=== PATIENT | female | born 1965 | race Caucasian/White ===

== ENCOUNTER 2022-05-22 10:25 | Outpatient (REF) | payer OTHER, SELFPAY ==
[2022-05-22 11:38] LABS: MANUAL DIFF FLAG NO
[2022-05-22 12:16] LABS: Basophils Percent Auto 0.3 % (0-2); Eosinophils Absolute Auto 0.3 X10*3/uL (0.0-0.4); Eosinophils Percent Auto 2.8 % (0-4); Hematocrit 37.6 % (37.0-47.0); Hemoglobin 12.5 g/dl (12.0-16.0); Imm Gran Abs Auto 0.03 X10*3/uL (0.00-0.03); Imm Gran Pct Auto 0.3 % (0.0-0.4); Lymphocytes Percent Auto 32.3 % (20-40); Mean Corpuscular HGB Conc 33.2 g/dl (31.0-35.0); Mean Corpuscular Hemoglobin 28.7 pg (27.0-33.0); Mean Corpuscular Volume 86.4 fL (80.0-98.0); Mean Platelet Volume 10.4 fL (9.4-12.3); Monocytes Absolute Auto 0.6 X10*3/uL (0.1-1.2); Monocytes Percent Auto 6.7 % (2-11); Neutrophils Absolute Auto 5.3 x10*3/uL (2.0-8.3); Neutrophils Percent Auto 57.6 % (45-73); Platelet Count 305 X10*3/uL (160-400); Red Blood Count 4.35 X10*6/uL (4.20-5.50); Red Cell Distribution Width 12.9 % (11.0-16.0); White Blood Count 9.3 X10*3/uL (4.8-10.8)
[2022-05-22 12:45] LABS: Alanine Aminotransferase 26 U/L (0-31); Alkaline Phosphatase 51 U/L (39-117); Anion Gap 13 (12-20); Aspartate Amino Transferase 25 U/L (5-31); Bilirubin Direct 0.2 mg/dL (0.0-0.5); Bilirubin Total 0.4 mg/dL (0.0-1.0); Blood Urea Nitrogen 14 mg/dL (9-16); Calcium 9.2 mg/dL (8.4-10.2); Carbon Dioxide 24 mmol/L (22-29); Chloride 106 mmol/L (96-108); Estimated Glomerular Filt Rate > 60; Glucose Random 116 mg/dL (60-115); Sodium 139 mmol/L (135-145)
[2022-05-22 12:59] LABS: Erythrocyte Sedimentation Rate 37 MM/HR (0-20)
[2022-05-25 14:32] LABS: Alpha 1 Anti-trypsin 168 mg/dL (83-199)
[2022-05-25 15:52] LABS: Anti Nuclear Antibody Screen NEGATIVE (NEGATIVE)
[2022-05-26 12:17] LABS: Anti DNA DS Antibody <1 IU/mL
[2022-05-26 15:11] LABS: Cyclic Citrullinated Peptide <16 UNITS
[2022-05-29 15:21] LABS: Angiotensin Converting Enzyme 32 U/L (9-67)
[2022-06-25 15:02] LABS: Asperg fumigatus Precip Abs NEGATIVE (NEGATIVE); Micropoly faeni Abs NEGATIVE (NEGATIVE); Pigeon serum Abs NEGATIVE (NEGATIVE); Saccharo pora viridis Abs NEGATIVE (NEGATIVE); Thermo candidus Abs NEGATIVE (NEGATIVE); Thermoa vulgaris #1 NEGATIVE (NEGATIVE)
== END 2022-05-22 10:26 | disposition home or self-care (01) ==
LOC: HO.LAB 10:25
PROVIDERS: PCP Internal Medicine; Visit Provider Hospitalist
DX: R91.8 Other nonspecific abnormal finding of lung field (principal); J84.9 Interstitial pulmonary disease, unspecified; M06.9 Rheumatoid arthritis, unspecified
CPT/HCPCS: 36415; 80048; 80076; 82103; 82164; 82785; 85025; 85652; 86003; 86038; 86039; 86200; 86225; 86331; 86606; 86609; 94618

== ENCOUNTER 2022-07-03 13:43 | Outpatient (REF) | payer OTHER, SELFPAY ==
--- NOTE | 2022-07-03 15:11 | PFT_ITS ---
INDICATION: Dyspnea. SPIROMETRY: FEV1 to FVC of 81% with an FEV1 of 1.84 L, which is 61% predicted, an FVC of 2.27 L. which is 61% predicted. No significant response to bronchodilators noted. To note, the [id number] decreased down to 48% predicted. The maximum voluntary ventilation is 62% predicted. LUNG VOLUMES: Total lung capacity 63% predicted with an expiratory reserve volume of 40% predicted. DIFFUSION CAPACITY: DLCO 62% predicted to now it does correct to 100% when corrected for the alveolar volume. COMPARISONS: None. INTERPRETATION: No obstructive ventilatory defect. No significant response to bronchodilators noted although there is evidence of small airway disease, which could be suspicious for asthma and/or body habitus, elevated BMI. There is some mild decrease in maximum voluntary ventilation secondary to likely deconditioning. In addition to that, there is a moderate restrictive ventilatory defect. Need to consider underlying restrictive lung disease related to her body habitus with an elevated BMI, although interstitial lung conditions or neuromuscular conditions cannot be ruled out. The patient does have a mild diffusion impairment that does correct to normal when correcting for the alveolar volume. Darshan Mobley MD MR/MODL / [id number]
== END 2022-07-03 13:44 | disposition home or self-care (01) ==
LOC: HO.RESP 13:43
PROVIDERS: Visit Provider Hospitalist
DX: J84.9 Interstitial pulmonary disease, unspecified (principal)
CPT/HCPCS: 94060; 94727; 94729

== ENCOUNTER 2023-01-19 10:09 | Outpatient (REF) | payer OTHER, SELFPAY ==
--- NOTE | ~2023-01-19 | CT_ITS ---
EXAMINATION: CT CHEST WITHOUT CONTRAST CLINICAL INFORMATION: J84.9 - Interstitial pulmonary disease, unspecified. Shortness of breath. History rheumatoid arthritis. VATS wedge biopsies right middle lobe right lower lobe 2019 at [facility] consistent with cellular nonspecific interstitial pneumonitis (NSIP). COMPARISON: None available. TECHNIQUE: Multidetector volumetric CT imaging of the chest is performed without intravenous contrast. Axial MIP volume rendering provided. Sagittal and coronal reformatted images were obtained. Additional high-resolution images obtained through the upper mid and lower zones. This CT examination was performed using dose optimization techniques as appropriate, variously including the following: *Automated exposure control *Adjustment of mA and/or kV according to patient size (this includes techniques or standardized protocols for targeted exams where dose is matched to indication/reason for exam; i.e. extremities or head) *Use of iterative reconstruction technique DLP: 261 mGy-cm FINDINGS: LUNGS: There is bilateral peripheral and subpleural fibrotic changes with accentuated subpleural lines, thickening interlobular interstitial markings, and intralobular reticulation predominantly at the lower zone. There is scattered involvement in the mid zones with relative sparing of the upper zones. No definite honeycombing. There is no lobar or segmental airspace consolidation or definite groundglass opacities. The central airways are clear. There is no bronchiectasis. No air trapping on high resolution expiratory images. No pneumothorax. No mass or nodule. There are some linear high attenuation posterior lateral lower zone consistent with the prior biopsy. MEDIASTINUM: Heart size normal. No pericardial effusion. Thoracic aorta normal in caliber. No adenopathy. CORONARY ARTERY CALCIFICATION: None visualized on this study. PLEURA: There is no pleural effusion. No pleural mass or thickening. AXILLA: No lymphadenopathy. UPPER ABDOMEN: Prior cholecystectomy. Adrenal glands normal. OSSEOUS STRUCTURES: Unremarkable. CT/CT chest wo IV con IMPRESSION: -Bilateral peripheral and subpleural fibrotic changes with relative sparing of the upper zones. No honeycombing. No bronchiectasis. -No lobar or segmental airspace consolidation or groundglass opacities. -No adenopathy or effusion.
== END 2023-01-19 10:10 | disposition home or self-care (01) ==
LOC: HO.CT 10:09
PROVIDERS: PCP Internal Medicine; Visit Provider Hospitalist
DX: J84.9 Interstitial pulmonary disease, unspecified (principal)
CPT/HCPCS: 71250

== ENCOUNTER → 2023-02-04 15:39 | Outpatient (BNVA) | payer OTHER, SELFPAY | PROVIDERS: PCP Internal Medicine; Visit Provider Hospitalist | DX: J84.9 Interstitial pulmonary disease, unspecified (principal) ==

== ENCOUNTER 2023-05-19 09:43 | Outpatient (AMB) | payer OTHER, SELFPAY ==
[2023-05-19 09:47] VITALS: BP 124/72; PULSE 94; RESP 17; TEMP 36.2; O2SAT 97; BMI 43.9
--- NOTE | 2023-05-19 09:47 | MHC.OFFVIS ---
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 Accompanied by: Self / Same As Patient Allergies clindamycin Adverse Reaction (Severe, Verified 05/19/23 09:50) Hives Iodinated Contrast Media Adverse Reaction (Severe, Verified 05/19/23 09:50) Vomiting Penicillins Adverse Reaction (Severe, Verified 05/19/23 09:50) Diarrhea Medication List - Last Reconciled 05/19/23 by Roxane Boogie RN acetaminophen ER 650 mg PO Q8H albuterol sulfate 90 mcg/actuation 2 puffs inhalation Q6H PRN [id number]-[id number] 250-250-65 mg (Excedrin Extra Strength) 1 tab PO Q4-6H PRN hydroxychloroquine (Plaquenil) 200 mg PO DAILY 30 days meclizine 12.5 mg PO TID PRN naproxen sodium (Flanax (naproxen)) 220 mg PO Q8H PRN HPI HPI Comments History of Present Illness Details The patient presents for evaluation of her rheumatoid arthritis. She relates the onset of joint symptoms in about 1999. Initial treatment was with hydroxychloroquine and then subsequently Enbrel. This treatment apparently was helpful for about 10 years. Eventually it was stopped although she does not know why. In 2011 there was a trial of methotrexate treatment but that was not helpful so it was discontinued. In 2011 she was not felt to have any synovitis. I had seen her back in 2020, once again without signs of active synovitis. However this year there has been more pain and swelling in hands, wrists, neck, knees, and feet. She takes acetaminophen without much improvement. She was started on 200 mg daily hydroxychloroquine about 2 months ago by the pulmonary doctor. She is seen there for interstitial lung disease but currently takes only inhalers for that. A lung biopsy has shown nonspecific interstitial pneumonitis back in 2019. She is known to be CCP and rheumatoid factor negative. [facility] Medical History (Updated 05/19/23 @ 13:05 by Donte Luz MD) Chronic restrictive lung disease ILD (interstitial lung disease) Rheumatoid arthritis Surgical History (Updated 05/19/23 @ 09:53 by Roxane Boogie RN) History of bilateral oophorectomies History of cataract surgery History of cholecystectomy History of lung biopsy Family History (Updated 05/19/23 @ 09:56 by Roxane Boogie RN) Mother Rheumatoid arthritis Sister Osteoarthritis Hypertension Brother Osteoarthritis Skin cancer Father Type 2 diabetes mellitus Osteoarthritis Hypertension Social History (Updated 05/19/23 @ 09:56 by Roxane Boogie RN) Alcohol intake: current Patient Tobacco Use Status: Never used Tobacco Review of Systems Const Details: Some fatigue with exercise. Weight gain in the past 2 years. Negative for appetite change, fever, chills, malaise Eyes Details: Negative for vision change, dry eyes,headaches and dizziness ENT Details: Negative for hearing change, tinnitus, oral ulcer, nose bleeds and oral dryness. Card Details: Negative chest pain, edema and syncope Resp Details: Negative for SOB, cough and wheezing GI Details: Negative indigestion/heartburn, nausea, abdominal pain, bowel changes, diarrhea, constipation and bloody stool. Endo Details: Negative for polyuria and polydypsia Boris/Lymph Details: Negative for excessive bruising or bleeding. Physical Exam Vital Signs: Last Vital Signs Temp 97.2 F 05/19/23 09:47 Pulse 94 05/19/23 09:47 Resp 17 05/19/23 09:47 BP 124/72 05/19/23 09:47 Pulse Ox 97 05/19/23 09:47 Oxygen Delivery Method Room Air 05/19/23 09:47 BMI result Body Mass Index 43.9 APPEARANCE: Patient in no acute distress EYES no redness, pupils equal and reactive to light, eyelids normal EARS: External ear normal, canal clear and tympanic membrane normal. NOSE/SINUS: Airflow through both nares, no nasal discharge, no bleeding THROAT: Oral mucosa moist, no ulcerations NECK: No thyromegaly or masses, no adenopathy, trachea midline. HEART: Regulrar rhythm, S1-S2 heard, no murmurs, rubs or gallops. LUNG: Clear to percussion and auscultation ABD: Normal bowel sounds, no organomegaly, masses or tenderness. EXTREMITIES: Trace ankle edema. The the no calf tenderness, normal peripheral pulses. NEURO: Oriented and alert x3. No focal weakness. Reflexes symmetric. Gait normal. SKIN: No inflammatory or neoplastic lesions. Normal color and turgor JOINT EXAM:.?? Cervical Spine:.? Full range of motion mild pain at the extremes of motion. No tenderness. Thoracic Spine:.? No scoliosis.? No tenderness on palpation. Lumbar Spine:.? Alignment normal.? Full range of motion without pain, no tenderness. Chest Wall:.? No tenderness, swelling, increased warmth or erythema. Hands: Right: Slight swelling and tenderness at the 2nd MCP. There is some slight tenderness at the thumb IP without swelling. No thenar atrophy or sensory loss. Left: Mild tenderness without swelling at the 1st MCP. The other joints have pain-free range of motion without tenderness or swelling. Wrists:? Normal pain-free range of motion without tenderness, swelling, increased warmth or erythema. Elbows:. Normal pain-free range of motion without tenderness, swelling, increased warmth or erythema. Shoulders:.?? Full range of motion without pain. No tenderness, weakness, swelling, increased warmth or erythema. Hips:? Full range of motion with mild lumbar pain with extremes of normal internal or external rotation. No groin pain with motion. out pain. Hip bursa:.? Slight trochanteric tenderness. Knees:?? Normal pain-free range of motion with mild patellofemoral crepitus. There is slight medial compartment tenderness but no effusion, soft tissue swelling, redness or warmth. Ankles:? Left: AP motion seems to be pain-free but there is mild pain with inversion or eversion. There is mild medial and lateral tenderness without redness or soft tissue swelling. Right: Normal pain-free range of motion without tenderness, swelling, increased warmth or erythema. Feet:.? Normal pain-free range of motion without tenderness, swelling, increased warmth or erythema. Tender points:? mild tenderness to digital palpation at the lateral epicondyle, knees, greater trochanter area bilaterally. ? Results Reviewed Results Reviewed: Laboratory Tests 05/22/22 05/22/22 05/22/22 11:35 11:35 11:35 WBC 9.3 Hgb 12.5 ESR 37 H Creatinine 0.89 Cycl Citrul Peptide IgG DIYA Screen 05/22/22 05/22/22 11:35 11:35 WBC Hgb ESR Creatinine Cycl Citrul Peptide IgG <16 DIYA Screen NEGATIVE Lab work from [facility]: 2017: Sjogren's antibody negative, anti SM antibody negative, anti SYSTEM ARCHIVE ANALYST antibody negative, DIYA negative, anti DNA negative, scleroderma antibody negative, rheumatoid factor negative, Mar, 2021: CRP slightly elevated at 0.89 mg/dL Assessment & Plan Assessment & Plan (1) ILD (interstitial lung disease): Comment: cellular NSIP/RA related ILD Code(s): J84.9 - Interstitial pulmonary disease, unspecified (2) Chronic restrictive lung disease: Code(s): J98.4 - Other disorders of lung (3) Rheumatoid arthritis: Comment: treatment 1999- 2009 with Enbrel and Plaquenil methotrexate started ~ 2011 but patient stopped it - flare RF, CCP negative No DMARD since 2011 - burned out ? Code(s): M06.9 - Rheumatoid arthritis, unspecified Plan Patient has documented interstitial lung disease which seems to be stable. There is a history of being treated with methotrexate, hydroxychloroquine, and Enbrel in the past for rheumatoid arthritis. In recent years there has not been much synovitis to treat. Presently I think there is some tenderness and swelling in a few of the small joints in the hands. This is after she has been on the hydroxychloroquine now at 200 mg daily for a month. There still could be some improvement at this dose but I will push the dose higher up to 200 mg b.i.d. which would be a more therapeutic level for a woman her size. I will recheck some inflammatory markers, Chem panel and CBC. We will see her back in about 3 months.Review of her records, today's exam and discussing treatment options took 34 minutes. Orders: Orders Comprehensive Met. Panel Today M06.9 - Rheumatoid arthritis, unspecified C Reactive Protein Today M06.9 - Rheumatoid arthritis, unspecified Protein Creatinine Ratio, Ur Today M06.9 - Rheumatoid arthritis, unspecified, M25.471 - Effusion, right ankle, M25.472 - Effusion, left ankle Complete Blood Count Auto Diff Today M06.9 - Rheumatoid arthritis, unspecified Erythrocyte Sedimentation Rate Today M06.9 - Rheumatoid arthritis, unspecified Rheumatoid Factor Today M06.9 - Rheumatoid arthritis, unspecified XR hand LT min 3V Today M06.9 - Rheumatoid arthritis, unspecified XR hand RT min 3V Today M06.9 - Rheumatoid arthritis, unspecified Medications: Changed From hydroxychloroquine (Plaquenil) 200 mg PO DAILY 30 days 30 tabs 6RF To hydroxychloroquine (Plaquenil) 200 mg PO BID 60 tabs 2RF 30 days Coding Level of Care Code Est Pt Level 4 (73372) Diagnoses ILD (interstitial lung disease) J84.9 Chronic restrictive lung disease J98.4 Rheumatoid arthritis M06.9
== END 2023-05-19 10:48 | disposition home or self-care (01) ==
PROVIDERS: PCP Internal Medicine; Visit Provider Internal Medicine Rheumatology
DX: J84.9 Interstitial pulmonary disease, unspecified (principal); J98.4 Other disorders of lung; M06.9 Rheumatoid arthritis, unspecified
CPT/HCPCS: 99214

== ENCOUNTER → 2023-05-19 09:43 | Outpatient (BNVA) | payer OTHER, SELFPAY | PROVIDERS: PCP Internal Medicine; Visit Provider Internal Medicine Rheumatology ==

== ENCOUNTER 2023-05-19 10:52 | Outpatient (REF) | payer OTHER, SELFPAY ==
[2023-05-19 13:23] LABS: MANUAL DIFF FLAG NO
[2023-05-19 13:31] LABS: Basophils Absolute Auto 0.1 X10*3/uL (0.0-0.2); Basophils Percent Auto 0.6 % (0-2); Eosinophils Absolute Auto 0.3 X10*3/uL (0.0-0.4); Hematocrit 39.6 % (37.0-47.0); Hemoglobin 12.7 g/dl (12.0-16.0); Imm Gran Abs Auto 0.03 X10*3/uL (0.00-0.03); Imm Gran Pct Auto 0.4 % (0.0-0.4); Lymphocytes Absolute Auto 2.8 X10*3/uL (1.2-4.9); Lymphocytes Percent Auto 33.9 % (20-40); Mean Corpuscular HGB Conc 32.1 g/dl (31.0-35.0); Mean Corpuscular Hemoglobin 28.3 pg (27.0-33.0); Mean Corpuscular Volume 88.4 fL (80.0-98.0); Mean Platelet Volume 10.5 fL (9.4-12.3); Monocytes Absolute Auto 0.6 X10*3/uL (0.1-1.2); Monocytes Percent Auto 6.7 % (2-11); Neutrophils Absolute Auto 4.6 x10*3/uL (2.0-8.3); Neutrophils Percent Auto 55.4 % (45-73); Platelet Count 303 X10*3/uL (160-400); Red Blood Count 4.48 X10*6/uL (4.20-5.50); Red Cell Distribution Width 13.1 % (11.0-16.0); White Blood Count 8.3 X10*3/uL (4.8-10.8)
[2023-05-19 14:22] LABS: Erythrocyte Sedimentation Rate 23 MM/HR (0-20)
[2023-05-19 14:46] LABS: Rheumatoid Factor < 13.0 IU/mL (<15.0)
[2023-05-19 15:27] LABS: Creatinine Urine 176.42 mg/dL; Protein/Creatinine Ratio, Ur 0.08 (<0.2); Total Protein Urine Random 14 mg/dL (<12)
[2023-05-20 02:15] LABS: Alanine Aminotransferase 24 U/L (0-31); Alkaline Phosphatase 45 U/L (39-117); Anion Gap 13 (12-20); Aspartate Amino Transferase 26 U/L (5-31); Bilirubin Total 0.4 mg/dL (0.0-1.0); Blood Urea Nitrogen 15 mg/dL (9-16); C Reactive Protein 1.09 mg/dL (< or = 0.50); Calcium 9.3 mg/dL (8.4-10.2); Carbon Dioxide 27 mmol/L (22-29); Chloride 105 mmol/L (96-108); Estimated Glomerular Filt Rate > 60; Glucose Random 89 mg/dL (60-115); Potassium 3.8 mmol/L (3.3-5.1); Sodium 141 mmol/L (135-145)
== END 2023-05-19 10:53 | disposition home or self-care (01) ==
LOC: HO.10HDL 10:52
PROVIDERS: Visit Provider Internal Medicine Rheumatology
DX: M06.9 Rheumatoid arthritis, unspecified (principal); M25.471 Effusion, right ankle; M25.472 Effusion, left ankle
CPT/HCPCS: 36415; 80053; 84156; 85025; 85652; 86140; 86431

== ENCOUNTER 2023-08-03 15:01 | Outpatient (REF) | payer OTHER, SELFPAY ==
--- NOTE | 2023-08-03 16:18 | PFT_ITS ---
INDICATION: Dyspnea. SPIROMETRY: FEV1 to FVC 82% with an FEV1 of 1.72 L, which is 58% predicted and FVC of 2.1 L, which is 57% predicted. No significant response to bronchodilators noted. Maximum voluntary ventilation 54% predicted. LUNG VOLUMES: Total lung capacity 61% predicted with an expiratory reserve volume of 20% predicted. DIFFUSION CAPACITY: DLCO of 64% predicted. COMPARISONS: None. INTERPRETATION: No obstructive ventilatory defects. No significant response to bronchodilators noted. Moderate decrease in maximum voluntary ventilation, secondary to likely deconditioning. Neuromuscular conditions cannot be ruled out. On lung volumes, the patient does have restrictive ventilatory defect consistent with moderate restrictive lung disease. In part this could be secondary to her elevated BMI resulting in hypoexpansion of the lungs especially with the decrease in the expiratory volume. However, need to consider underlying parenchymal lung conditions and/or neuromuscular conditions as well. The patient does have mild diffusion impairment that does correct to normal when correcting for the alveolar volume and the hypoexpansion of the lungs. Clinical correlation warranted. MD LATRELL Nelson/MODL / [id number]
== END 2023-08-03 15:02 | disposition home or self-care (01) ==
LOC: HO.RESP 15:01
PROVIDERS: PCP Internal Medicine; Visit Provider Hospitalist
DX: J98.4 Other disorders of lung (principal)
CPT/HCPCS: 94010; 94727; 94729

== ENCOUNTER → 2023-08-03 16:18 | Outpatient (BNV) | payer OTHER, SELFPAY | PROVIDERS: PCP Internal Medicine; Visit Provider Hospitalist | DX: R06.09 Other forms of dyspnea (principal) | CPT/HCPCS: 94060; 94727; 94729 ==

== ENCOUNTER 2023-08-06 13:03 | Outpatient (AMB) | payer OTHER, SELFPAY ==
--- NOTE | 2023-08-06 13:08 | MHC.OFFVIS ---
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 The patient had been having worsening shortness of breath and was evaluated by a fellow butt welder from [place]. in 2018 the patient undergo went a video-assisted thoracoscopy with wedge biopsies of the right middle lobe and also the right lower lobe. At this point we do not have the biopsy results although we did request done for [facility]. She did follow-up with the butt welder at the time and he recommended going on cortical steroid therapy. The patient preferred not to in view of the adverse effects from prednisone. In the meantime she has had multiple medications she has use for rheumatoid arthritis. Right now her symptoms are active with small joint involvement. The patient is currently being arranged to have a referral with a chef de froid. during the visit we did go for 6 minutes walk test. The patient did well and did not need oxygen although heart rate was indeed elevated. Will go ahead and have her undergo pulmonary function studies and also Will request additional blood work. Will review her last CT scan and pathology and at that point will likely need additional imaging studies. 07/27/2022 the patient is here for a pulmonary follow-up visit. Overall she is doing relatively well. Denies any significant shortness of breath when he worsening dyspnea on exertion. Cough seems to be under control. The patient is not using inhalers. I did get the pathology from her wedge biopsy done at [facility]. 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 Explained to her that this is a reassuring finding as this is responsive to medication. Her blood work was all negative. Her CCP was negative for that she does have a history rheumatoid arthritis. It may just be in remission. She still has arthritis symptoms and she does take [id number] NSAIDs. She used to have chef de froid but she is not following 1 regularly at this time. her last CT scan that she had was at [facility] that was back in October 2021 demonstrating the interstitial lung disease. Clinically the patient is doing well so therefore will follow-up with a repeat CT scan in 6 months. If the patient has any worsening symptoms prior to that she is to call so we can evaluated earlier time. We also reviewed her pulmonary function studies again consistent with restrictive lung disease primarily due to her interstitial lung disease but also elevated BMI. she was already plan to start exercising and weight management which is reassuring. 02/04/2023 the patient is here for pulmonary follow-up visit. Overall she is doing well. Denies any significant shortness of breath or any worsening of her dyspnea symptoms. We did review her CT scan of the chest. Unfortunately has not been read as of yet. But I did look at it with her. She does have moderate amount of subpleural reticular changes consistent with scarring and also primarily at the bases. I do not see any evidence of any ground-glass opacities to go along with active cellular NSIP. This is reassuring. At this point we cannot compare 1 CT scan to the other. Her last PFTs were back in July 2022. Will go ahead and request PFTs at next visit in 6 months to see if there is any progression of disease. If there is progression we can consider antifibrotic agents to try to a slow down the progressive aspects of her connective tissue disease related interstitial lung disease. She does have some active arthritis symptoms. Unfortunately she has not followed up with Rheumatology. She needs to have a chef de froid followed closely. Will go ahead and start her on Plaquenil as his work for her in the past. But when she sees her chef de froid she will be able to have that either continued or change. Will make a referral at this time. In the meantime she is using her rescue inhaler as needed. The patient has not required any prednisone which she would like to avoid it if possible. 08/06/2023 the patient is here for a pulmonary follow-up visit. The patient overall has been about the same. She does have a good days and bad days. Currently she is doing well. The patient does have some dyspnea on exertion mild in severity. She does not require oxygen. We did review her pulmonary function studies that she just had an compared to the previous 1 from last year. It appears that she has a total lung capacity of 61% which is basically unchanged from last year. This is reassuring overall. Her diffusing capacity is also reassuring. Therefore based on her PFTs it does not appear to be any significant progression of disease in the last year. Therefore we can hold off on antifibrotic agents at this time. She also had been on the Plaquenil. Although for some reason she stopped it altogether. Explained to her the importance of controlling the connective tissue disease in order to avoid any other extra articular contain manifestations such as the interstitial lung disease. The patient understands and will start taking the medication again. Otherwise will follow-up in the springtime with a repeat CT scan to assess for any progression of the pulmonary fibrosis. [facility] Medical History (Updated 08/09/23 @ 20:07 by Darshan Mobley MD) Chronic restrictive lung disease Rheumatoid arthritis ILD (interstitial lung disease) Surgical History (Updated 05/19/23 @ 09:53 by Roxane Boogie RN) History of cataract surgery History of lung biopsy History of cholecystectomy History of bilateral oophorectomies Family History (Updated 05/19/23 @ 09:56 by Roxane Boogie RN) Mother Rheumatoid arthritis Sister Osteoarthritis Hypertension Brother Osteoarthritis Skin cancer Father Type 2 diabetes mellitus Osteoarthritis Hypertension Social History (Updated 05/19/23 @ 09:56 by Roxane Boogie RN) Alcohol intake: current Patient Tobacco Use Status: Never used Tobacco Review of Systems Const Denies fever(s) Eyes Denies change in vision ENT Denies change in voice Card Denies chest pain and Reports dyspnea on exertion Resp Reports cough, Denies hemoptysis and Reports dyspnea on exertion GI Reports no additional complaints Reports no additional complaints Musc Reports as per HPI, Reports arthralgias and Reports joint swelling Skin/Breast Denies rash Neuro Reports no additional complaints Physical Exam Vital Signs: Last Vital Signs Pulse 89 08/06/23 13:09 Pulse Ox 97 08/06/23 13:09 Oxygen Delivery Method Room Air 08/06/23 13:09 BMI result Body Mass Index 43.8 Const General: comfortable HEENT Head: Yes normal to inspection Eyes General: appearance normal, both eyes and all related structures Neck Neck: Yes normal visual inspection and Yes supple Chest Chest palpation & inspection: normal inspection of the chest Resp Auscultation: crackles bilateral 1/2 way up and diminished lung sounds Cardio Rate: regular rate Rhythm: regular rhythm Heart sounds: S1 normal heart sound present and S2 normal heart sound present GI Inspection: Yes normal to inspection Skin General skin exam: no rashes or lesions noted Extrem General: Yes normal to inspection Assessment & Plan Assessment & Plan (1) ILD (interstitial lung disease): Comment: cellular NSIP/RA related ILD Code(s): J84.9 - Interstitial pulmonary disease, unspecified (2) Rheumatoid arthritis: Comment: treatment 1999- 2009 with Enbrel and Plaquenil methotrexate started ~ 2011 but patient stopped it - flare RF, CCP negative No DMARD since 2011 - burned out ? Code(s): M06.9 - Rheumatoid arthritis, unspecified Qualifiers: Rheumatoid factor presence: with rheumatoid factor Rheumatoid arthritis location: unspecified site Qualified Code(s): M05.9 - Rheumatoid arthritis with rheumatoid factor, unspecified (3) Chronic restrictive lung disease: Code(s): J98.4 - Other disorders of lung Plan ALCON as needed Lasix x 3 days low sodium diet consider OFEV if progressive fibrosis CT chest in 6 months Plaquenil F/U 6 months or sooner if any worsening symptoms Orders: Orders CT chest wo IV con 6 Months J84.9 - Interstitial pulmonary disease, unspecified Medications: New furosemide (Lasix) 20 mg PO DAILY 3 tabs 0RF 3 days Coding Level of Care Code Est Pt Level 4 (67417) Diagnoses ILD (interstitial lung disease) J84.9 Rheumatoid arthritis with positive rheumatoid factor, involving unspecified site M05.9 Rheumatoid factor presence: with rheumatoid factor Rheumatoid arthritis location: unspecified site Chronic restrictive lung disease J98.4 Time Spent (min) 17
[2023-08-06 13:09] VITALS: PULSE 89; O2SAT 97; BMI 43.8
== END 2023-08-06 13:35 | disposition home or self-care (01) ==
PROVIDERS: PCP Internal Medicine; Visit Provider Hospitalist
DX: J84.9 Interstitial pulmonary disease, unspecified (principal); M05.9 Rheumatoid arthritis with rheumatoid factor, unspecified; J98.4 Other disorders of lung
CPT/HCPCS: 99214

== ENCOUNTER → 2023-08-06 13:03 | Outpatient (BNVA) | payer OTHER, SELFPAY | PROVIDERS: PCP Internal Medicine; Visit Provider Hospitalist | DX: J84.9 Interstitial pulmonary disease, unspecified (principal); M06.9 Rheumatoid arthritis, unspecified ==

== ENCOUNTER 2024-01-03 10:22 | Outpatient (REF) | payer OTHER, SELFPAY ==
--- NOTE | ~2024-01-03 | CT_ITS ---
EXAMINATION: CT CHEST WITHOUT CONTRAST CLINICAL INFORMATION: Interstitial lung disease. COMPARISON: CT chest dated 02/26/2023. TECHNIQUE: Multidetector volumetric CT imaging of the chest was done. Axial MIP volume rendering provided. Sagittal and coronal reformatted images were obtained. This CT examination was performed using dose optimization techniques as appropriate, variously including the following: *Automated exposure control *Adjustment of mA and/or kV according to patient size (this includes techniques or standardized protocols for targeted exams where dose is matched to indication/reason for exam; i.e. extremities or head) *Use of iterative reconstruction technique DLP: 394 mGy-cm FINDINGS: HEEL PACKER: The lungs are symmetrically well-expanded and grossly clear. LUNGS: Again, there are scattered foci of pleural and parenchymal fibrotic scarring. There is again chronic interstitial lung disease, with predominantly bibasilar increased subpleural linear reticular and polygonal markings. No definite honeycombing is seen. Overall, this appearance remains stable from 01/19/2023. No nodule, mass, infiltrate or groundglass opacity is seen. There are stable postoperative changes in the right middle and lower lobes consistent with prior VATS wedge biopsies (2019). There is no generalized small airway thickening. There is no significant air trapping. No bronchiectasis is seen. The central airways appear patent. MEDIASTINUM: The mediastinum is normal. CORONARY ARTERY CALCIFICATION: None visualized on this study. PLEURA: There is no pleural effusion. There is stable right lower lobe postoperative pleural thickening. No new pleural mass or thickening. AXILLA: No lymphadenopathy. UPPER ABDOMEN: Unremarkable. The gallbladder is surgically absent. OSSEOUS STRUCTURES: There is multi-level lower cervical and thoracic spondylosis. No acute or aggressive osseous finding is noted. CT/CT chest wo IV con IMPRESSION: 1. There are stable findings of chronic interstitial lung disease, without honeycombing. The possibility of nonspecific interstitial pneumonia (NSIP) is raised. 2. There are stable postoperative changes within the right middle and lower lobes. 3. No new nodule, mass, infiltrate or groundglass opacity is seen. 4. There is no thoracic lymphadenopathy or pleural effusion. 5. There are degenerative changes of the spine. Fleischner guidelines were followed.
== END 2024-01-03 10:23 | disposition home or self-care (01) ==
LOC: HO.CT 10:22
PROVIDERS: PCP Internal Medicine; Visit Provider Hospitalist
DX: J84.9 Interstitial pulmonary disease, unspecified (principal)
CPT/HCPCS: 71250

== ENCOUNTER 2024-04-13 08:54 | Outpatient (REF) | payer OTHER, SELFPAY ==
[2024-04-13 12:04] LABS: Erythrocyte Sedimentation Rate 23 MM/HR (0-20)
[2024-04-17 11:13] LABS: Cyclic Citrullinated Peptide <16 UNITS
[2024-04-17 14:44] LABS: Anti Nuclear Antibody Screen NEGATIVE (NEGATIVE)
[2024-04-17 23:19] LABS: Anti DNA DS Antibody <1 IU/mL; JO 1 Antibody <1.0 NEG AI (<1.0 NEG); Scleroderma 70 Antibody <1.0 NEG AI (<1.0 NEG)
== END 2024-04-13 08:55 | disposition home or self-care (01) ==
LOC: HO.LAB 08:54
PROVIDERS: PCP Internal Medicine; Visit Provider Hospitalist
DX: J84.9 Interstitial pulmonary disease, unspecified (principal)
CPT/HCPCS: 36415; 85652; 86038; 86200; 86225; 86235

== ENCOUNTER 2024-04-13 08:54 | Outpatient (AMB) | payer OTHER, SELFPAY ==
[2024-04-13 08:57] VITALS: PULSE 86; O2SAT 96; BMI 41.5
--- NOTE | 2024-04-13 08:57 | MHC.OFFVIS ---
Vital Signs 04/13/24 08:57 Height 5 ft 7 in Weight 265 lb BMI 41.5 Pulse 86 Pulse Source Pulse Oximeter Pulse Oximetry (%) 96 Oxygen Delivery Method Room Air Intake Visit Reasons: ILD Refractive Surgeon Required: No Allergies clindamycin Adverse Reaction (Severe, Verified 04/13/24 08:58) Hives Iodinated Contrast Media Adverse Reaction (Severe, Verified 04/13/24 08:58) Vomiting Penicillins Adverse Reaction (Severe, Verified 04/13/24 08:58) Diarrhea HPI Comments Details: The patient is a 58-year-old woman with a known history of rheumatoid arthritis and interstitial lung disease. The patient had been having worsening shortness of breath and was evaluated by a fellow procedures rn from [place]. in 2018 the patient undergo went a video-assisted thoracoscopy with wedge biopsies of the right middle lobe and also the right lower lobe. At this point we do not have the biopsy results although we did request done for [facility]. She did follow-up with the procedures rn at the time and he recommended going on cortical steroid therapy. The patient preferred not to in view of the adverse effects from prednisone. In the meantime she has had multiple medications she has use for rheumatoid arthritis. Right now her symptoms are active with small joint involvement. The patient is currently being arranged to have a referral with a orthotic technician. during the visit we did go for 6 minutes walk test. The patient did well and did not need oxygen although heart rate was indeed elevated. Will go ahead and have her undergo pulmonary function studies and also Will request additional blood work. Will review her last CT scan and pathology and at that point will likely need additional imaging studies. 07/27/2022 the patient is here for a pulmonary follow-up visit. Overall she is doing relatively well. Denies any significant shortness of breath when he worsening dyspnea on exertion. Cough seems to be under control. The patient is not using inhalers. I did get the pathology from her wedge biopsy done at [facility]. 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 Explained to her that this is a reassuring finding as this is responsive to medication. Her blood work was all negative. Her CCP was negative for that she does have a history rheumatoid arthritis. It may just be in remission. She still has arthritis symptoms and she does take [id number] NSAIDs. She used to have orthotic technician but she is not following 1 regularly at this time. her last CT scan that she had was at [facility] that was back in October 2021 demonstrating the interstitial lung disease. Clinically the patient is doing well so therefore will follow-up with a repeat CT scan in 6 months. If the patient has any worsening symptoms prior to that she is to call so we can evaluated earlier time. We also reviewed her pulmonary function studies again consistent with restrictive lung disease primarily due to her interstitial lung disease but also elevated BMI. she was already plan to start exercising and weight management which is reassuring. 02/04/2023 the patient is here for pulmonary follow-up visit. Overall she is doing well. Denies any significant shortness of breath or any worsening of her dyspnea symptoms. We did review her CT scan of the chest. Unfortunately has not been read as of yet. But I did look at it with her. She does have moderate amount of subpleural reticular changes consistent with scarring and also primarily at the bases. I do not see any evidence of any ground-glass opacities to go along with active cellular NSIP. This is reassuring. At this point we cannot compare 1 CT scan to the other. Her last PFTs were back in July 2022. Will go ahead and request PFTs at next visit in 6 months to see if there is any progression of disease. If there is progression we can consider antifibrotic agents to try to a slow down the progressive aspects of her connective tissue disease related interstitial lung disease. She does have some active arthritis symptoms. Unfortunately she has not followed up with Rheumatology. She needs to have a orthotic technician followed closely. Will go ahead and start her on Plaquenil as his work for her in the past. But when she sees her orthotic technician she will be able to have that either continued or change. Will make a referral at this time. In the meantime she is using her rescue inhaler as needed. The patient has not required any prednisone which she would like to avoid it if possible. 08/06/2023 the patient is here for a pulmonary follow-up visit. The patient overall has been about the same. She does have a good days and bad days. Currently she is doing well. The patient does have some dyspnea on exertion mild in severity. She does not require oxygen. We did review her pulmonary function studies that she just had an compared to the previous 1 from last year. It appears that she has a total lung capacity of 61% which is basically unchanged from last year. This is reassuring overall. Her diffusing capacity is also reassuring. Therefore based on her PFTs it does not appear to be any significant progression of disease in the last year. Therefore we can hold off on antifibrotic agents at this time. She also had been on the Plaquenil. Although for some reason she stopped it altogether. Explained to her the importance of controlling the connective tissue disease in order to avoid any other extra articular contain manifestations such as the interstitial lung disease. The patient understands and will start taking the medication again. Otherwise will follow-up in the springtime with a repeat CT scan to assess for any progression of the pulmonary fibrosis. 04/13/2024 the patient is here for a pulmonary follow-up visit. Overall she is doing okay. The last few weeks she has had to use her rescue inhaler more often. Possibly related to the change season and also the humidity. Otherwise she has been doing well denies any significant shortness of breath. She does have mild dyspnea on exertion. She also had lower extremity edema. She did not take the Lasix the last time. She needs to be careful with sodium intake. We did review her CT scan of the chest that she had in 01/19/2024 and we did review it and compared to the CT scan from 2022. No significant changes in the interstitial lung disease suggesting stable chronic interstitial fibrosis from her underlying connective tissue disease. It appears to be stable at this time. She will be following up closely with rheumatology. The patient also is describing daytime drowsiness. Her Collins score is elevated 11/24. She has woken up short of breath. She does have significant snoring. She does have cardiovascular risk factors and significant lower extremity edema. Will go ahead and request a sleep study at this time her follow-up afterwards. The patient will also undergo blood work just to monitor closely her interstitial lung disease. [facility] Medical History (Updated 04/13/24 @ 09:23 by Darshan Mobley MD) Chronic restrictive lung disease Rheumatoid arthritis ILD (interstitial lung disease) Surgical History (Updated 05/19/23 @ 09:53 by Roxane Boogie RN) History of cataract surgery History of lung biopsy History of cholecystectomy History of bilateral oophorectomies Family History (Updated 05/19/23 @ 09:56 by Roxane Keagan, RN) Mother Rheumatoid arthritis Sister Osteoarthritis Hypertension Brother Osteoarthritis Skin cancer Father Type 2 diabetes mellitus Osteoarthritis Hypertension Social History (Updated 05/19/23 @ 09:56 by Roxane Boogie RN) Alcohol intake: current Patient Tobacco Use Status: Never used Tobacco Review of Systems Const Denies fever(s) Eyes Denies change in vision ENT Denies change in voice Card Denies chest pain and Reports dyspnea on exertion Resp Reports cough, Denies hemoptysis and Reports dyspnea on exertion GI Reports no additional complaints Reports no additional complaints Musc Reports as per HPI, Reports arthralgias and Reports joint swelling Skin/Breast Denies rash Neuro Reports no additional complaints Physical Exam Vital Signs: Last Vital Signs Pulse 86 04/13/24 08:57 Pulse Ox 96 04/13/24 08:57 Oxygen Delivery Method Room Air 04/13/24 08:57 BMI result Body Mass Index 41.5 Const General: comfortable HEENT Head: Yes normal to inspection Eyes General: appearance normal, both eyes and all related structures Neck Neck: Yes normal visual inspection and Yes supple Chest Chest palpation & inspection: normal inspection of the chest Resp Auscultation: crackles bilateral 1/[address] way up and diminished lung sounds Cardio Rate: regular rate Rhythm: regular rhythm Heart sounds: S1 normal heart sound present and S2 normal heart sound present GI Inspection: Yes normal to inspection Skin General skin exam: no rashes or lesions noted Extrem General: Yes normal to inspection Assessment & Plan Assessment & Plan (1) ILD (interstitial lung disease): Comment: cellular NSIP/RA related ILD Code(s): J84.9 - Interstitial pulmonary disease, unspecified Category: Medical (2) Rheumatoid arthritis: Comment: treatment 1999- 2009 with Enbrel and Plaquenil methotrexate started ~ 2011 but patient stopped it - flare RF, CCP negative No DMARD since 2011 - burned out ? Code(s): M06.9 - Rheumatoid arthritis, unspecified Category: Medical Qualifiers: Rheumatoid arthritis location: unspecified site Rheumatoid factor presence: with rheumatoid factor Qualified Code(s): M05.9 - Rheumatoid arthritis with rheumatoid factor, unspecified (3) Chronic restrictive lung disease: Code(s): J98.4 - Other disorders of lung Category: Medical (4) JENNIFER (obstructive sleep apnea): Code(s): G47.33 - Obstructive sleep apnea (adult) (pediatric) Category: Medical Plan ALCON as needed Lasix x 3 days low sodium diet consider OFEV if progressive fibrosis, fibrosis stable Plaquenil Bloodwork F/U 6 months or sooner if any worsening symptoms Orders: Orders Anti DNA DS Antibody Today J84.9 - Interstitial pulmonary disease, unspecified Scleroderma 70 Antibody Today J84.9 - Interstitial pulmonary disease, unspecified RACHEL 1 Antibody Today J84.9 - Interstitial pulmonary disease, unspecified RT home sleep study Today G47.33 - Obstructive sleep apnea (adult) (pediatric) Cyclic Citrullinated Peptide Today J84.9 - Interstitial pulmonary disease, unspecified Erythrocyte Sedimentation Rate Today J84.9 - Interstitial pulmonary disease, unspecified DIYA Reflex Titer and Pattern Today J84.9 - Interstitial pulmonary disease, unspecified Medications: New furosemide (Lasix) 20 mg PO DAILY 3 tabs 0RF albuterol sulfate 2.5 mg (3 mL) inhalation Q6H PRN 90 mL 11RF shortness of breath or wheezing 30 days Refilled albuterol sulfate 90 mcg/actuation 2 puffs inhalation Q6H PRN 8.5 grams 11RF shortness of breath or wheezing Coding Level of Care Code Est Pt Level 4 (20549) Diagnoses ILD (interstitial lung disease) J84.9 Rheumatoid arthritis with positive rheumatoid factor, involving unspecified site M05.9 Rheumatoid arthritis location: unspecified site Rheumatoid factor presence: with rheumatoid factor Chronic restrictive lung disease J98.4 JENNIFER (obstructive sleep apnea) G47.33 Time Spent (min) 17
== END 2024-04-13 09:25 | disposition home or self-care (01) ==
PROVIDERS: PCP Internal Medicine; Visit Provider Hospitalist
DX: J84.9 Interstitial pulmonary disease, unspecified (principal); M05.9 Rheumatoid arthritis with rheumatoid factor, unspecified; J98.4 Other disorders of lung; G47.33 Obstructive sleep apnea (adult) (pediatric)
CPT/HCPCS: 99214

== ENCOUNTER 2024-05-11 13:46 | Outpatient (AMB) | payer OTHER, SELFPAY ==
--- NOTE | 2024-05-11 13:52 | MHC.OFFVIS ---
Vital Signs 05/11/24 13:56 Height 5 ft 7 in Weight 276 lb 3.827 oz BMI 43.3 BP 120/72 Blood Pressure Location Rt brachial Position Sitting Pulse 89 Pulse Source Pulse Oximeter Temp 98 F Pulse Oximetry (%) 96 Oxygen Delivery Method Room Air Intake Visit Reasons: RA/CM Intake Note: Patient presents RA. Feeling lots of pain all over body but mostly in hands/knees. Allergies clindamycin Adverse Reaction (Severe, Verified 05/11/24 13:55) Hives Iodinated Contrast Media Adverse Reaction (Severe, Verified 05/11/24 13:55) Vomiting Penicillins Adverse Reaction (Severe, Verified 05/11/24 13:55) Diarrhea Medication List - Last Reconciled 05/11/24 by Noah Thomas MD acetaminophen ER 650 mg PO Q8H albuterol sulfate 90 mcg/actuation 2 puffs inhalation Q6H PRN albuterol sulfate 2.5 mg (3 mL) inhalation Q6H PRN 30 days fddxvsu-xwcjtcmddftby-rltjsrgy 250-250-65 mg (Excedrin Extra Strength) 1 tab PO Q4-6H PRN meclizine 12.5 mg PO TID PRN naproxen sodium (Flanax (naproxen)) 220 mg PO Q8H PRN nebulizers As directed HPI Comments Details: This is a 58-year-old female with seronegative RA with CTD related ILD who presents for follow-up. When patient was seen by Dr. Luz last year, hydroxychloroquine was increased to 2 tablets a day. Patient took it for a month or 2. She did not notice any improvement so she stopped taking it. She states that more recently she has been having much swelling and pain in her hands, knuckles, wrists, ankles associated with morning stiffness lasting 1 or 2 hours. Her ILD has remained relatively stable. She denies any cough or shortness of breath. Denies any recent infections. Denies any skin rashes. Most recent history by Dr. Luz 05/2023: The patient presents for evaluation of her rheumatoid arthritis. She relates the onset of joint symptoms in about 1999. Initial treatment was with hydroxychloroquine and then subsequently Enbrel. This treatment apparently was helpful for about 10 years. Eventually it was stopped although she does not know why. In 2011 there was a trial of methotrexate treatment but that was not helpful so it was discontinued. In 2011 she was not felt to have any synovitis. I had seen her back in 2020, once again without signs of active synovitis. However this year there has been more pain and swelling in hands, wrists, neck, knees, and feet. She takes acetaminophen without much improvement. She was started on 200 mg daily hydroxychloroquine about 2 months ago by the pulmonary doctor. She is seen there for interstitial lung disease but currently takes only inhalers for that. A lung biopsy has shown nonspecific interstitial pneumonitis back in 2019. She is known to be CCP and rheumatoid factor negative. [facility] Medical History Chronic restrictive lung disease Rheumatoid arthritis ILD (interstitial lung disease) Surgical History History of cataract surgery History of lung biopsy History of cholecystectomy History of bilateral oophorectomies Family History Mother Rheumatoid arthritis Sister Osteoarthritis Hypertension Brother Osteoarthritis Skin cancer Father Type 2 diabetes mellitus Osteoarthritis Hypertension Social History Alcohol intake: current Patient Tobacco Use Status: Never used Tobacco Female Reproductive History Menstrual Total pregnancies: 1 Full term: 1 Review of Systems Musc Reports arthralgias, Reports joint swelling and Reports stiffness Skin/Breast Denies photosensitivity and Denies rash Physical Exam Vital Signs: Last Vital Signs Temp 98 F 05/11/24 13:56 Pulse 89 05/11/24 13:56 BP 120/72 05/11/24 13:56 Pulse Ox 96 05/11/24 13:56 Oxygen Delivery Method Room Air 05/11/24 13:56 BMI result Body Mass Index 43.3 Const General: cooperative, healthy appearing and comfortable Nutritional Appearance: obese morbidly obese Orientation/consciousness: patient oriented x3 Limitations: no limitations HEENT Head: Yes normocephalic and Yes atraumatic Mouth: moist mucous membranes Resp Effort & Inspection: normal respiratory effort and able to speak in complete sentences Auscultation: crackles bilateral at the base Skin Other: Very faint dry pink rashes on PIPs Neuro General: patient oriented x3 Extrem Other: Bilateral wrist swelling and tenderness Pain with flexion-extension Multiple swollen and tender MCPs bilaterally Bilateral significant ankle swelling and tenderness Negative MTP squeeze test Bilateral knee pain with range of motion Results Reviewed Results Reviewed: Labs from [place]? DIYA 1-160 nucleolar? DsDNA negative? Armendariz/RECYCLING DIRECTOR/SSA/SSB/CCP/SCL 70 negative? Assessment & Plan Assessment & Plan (1) Rheumatoid arthritis: Comment: treatment 1999- 2009 with Enbrel and Plaquenil methotrexate started ~ 2011 but patient stopped it - flare +DIYA RF, CCP negative Code(s): M06.9 - Rheumatoid arthritis, unspecified Category: Medical Qualifiers: Rheumatoid arthritis location: unspecified site Rheumatoid factor presence: with rheumatoid factor Qualified Code(s): M05.9 - Rheumatoid arthritis with rheumatoid factor, unspecified Plan: This is a 58-year-old female with negative RA who presents for follow-up. She also has known NSIP ILD. On exam patient has multiple swollen and tender joints and we will need to start a DMARD. Patient did not take hydroxychloroquine regularly last visit as instructed by Dr. Luz. She did not receive an adequate trial. Advised patient to start taking hydroxychloroquine 200 mg Twice daily regularly for 3 months and we will reassess Start dose prednisone taper 10 mg daily for 1 week then 5 mg daily for 2 weeks Labs today . Check x-rays of involved joints Follow-up in 3 months (2) Chronic restrictive lung disease: Code(s): J98.4 - Other disorders of lung Category: Medical Plan: With positive DIYA nucleolar pattern. NSIP on lung biopsy. I will check further sub serologies to better understand her underlying autoimmune illness Plan I spent 30 minutes reviewing patient's chart, evaluating patient, ordering diagnostic workup, counseling patient and documenting in the chart Orders: Orders Complete Blood Count Auto Diff Today M34.9 - Systemic sclerosis, unspecified Comprehensive Met. Panel Today M34.9 - Systemic sclerosis, unspecified C Reactive Protein Today M34.9 - Systemic sclerosis, unspecified T Spot TB Today Z11.7 - Encounter for testing for latent tuberculosis infection Scleroderma 12 Panel Today M34.9 - Systemic sclerosis, unspecified MSA Panel Extended Today M60.9 - Myositis, unspecified Creatine Kinase Total Today M34.9 - Systemic sclerosis, unspecified XR hand wrist RT Today M05.9 - Rheumatoid arthritis with rheumatoid factor, unspecified XR ankle LT min 3V Today M05.9 - Rheumatoid arthritis with rheumatoid factor, unspecified XR foot LT min 3V Today M05.9 - Rheumatoid arthritis with rheumatoid factor, unspecified XR foot RT min 3V Today M05.9 - Rheumatoid arthritis with rheumatoid factor, unspecified Erythrocyte Sedimentation Rate Today M34.9 - Systemic sclerosis, unspecified Hepatitis A,B,C Profile Today Z11.59 - Encounter for screening for other viral diseases Immunofixation Pnl, Serum Today M34.9 - Systemic sclerosis, unspecified Protein Electrophoresis, Serum Today M34.9 - Systemic sclerosis, unspecified XR hand wrist LT Today M05.9 - Rheumatoid arthritis with rheumatoid factor, unspecified XR ankle RT min 3V Today M05.9 - Rheumatoid arthritis with rheumatoid factor, unspecified Medications: New prednisone Take 2 tabs daily for 1 week then 1 tab daily for 2 weeks then stop 28 tabs 0RF hydroxychloroquine 200 mg PO BID 180 tabs 1RF Coding Level of Care Code Est Pt Level 4 (60202) Diagnoses Rheumatoid arthritis with positive rheumatoid factor, involving unspecified site M05.9 Rheumatoid arthritis location: unspecified site Rheumatoid factor presence: with rheumatoid factor Chronic restrictive lung disease J98.4
[2024-05-11 13:56] VITALS: BP 120/72; PULSE 89; TEMP 36.6; O2SAT 96; BMI 43.3
== END 2024-05-11 14:22 | disposition home or self-care (01) ==
PROVIDERS: PCP Internal Medicine; Visit Provider Student in an Organized Health Care Education/Training Program
DX: M05.79 Rheumatoid arthritis with rheumatoid factor of multiple sites without organ or systems involvement (principal); J98.4 Other disorders of lung
CPT/HCPCS: 99214

== ENCOUNTER 2024-05-11 13:46 | Outpatient (REF) | payer OTHER, SELFPAY ==
--- NOTE | ~2024-05-11 | XR_ITS ---
EXAMINATION: X-ray bilateral hand CLINICAL INFORMATION: Rheumatoid arthritis COMPARISON: None available. TECHNIQUE: Bilateral hand each 4 views. FINDINGS: Right hand: Normal bone mineralization. Alignment is anatomic. Ulna negative variance. Joint spaces are maintained. No erosions. No abnormal soft tissue calcification. Left hand: Normal bone mineralization. Alignment is anatomic. No fracture or dislocation. No significant joint space narrowing or marginal osteophytes. No osseous erosion. No abnormal soft tissue calcification. XR/XR hand wrist RT IMPRESSION: No radiographic evidence of significant arthropathy.
--- NOTE | ~2024-05-11 | XR_ITS ---
EXAMINATION: X-ray bilateral hand CLINICAL INFORMATION: Rheumatoid arthritis COMPARISON: None available. TECHNIQUE: Bilateral hand each 4 views. FINDINGS: Right hand: Normal bone mineralization. Alignment is anatomic. Ulna negative variance. Joint spaces are maintained. No erosions. No abnormal soft tissue calcification. Left hand: Normal bone mineralization. Alignment is anatomic. No fracture or dislocation. No significant joint space narrowing or marginal osteophytes. No osseous erosion. No abnormal soft tissue calcification. XR/XR foot RT min 3V IMPRESSION: No radiographic evidence of significant arthropathy.
--- NOTE | ~2024-05-11 | XR_ITS ---
EXAMINATION: X-RAY BILATERAL ANKLE X-RAY BILATERAL FEET CLINICAL INFORMATION: Rheumatoid arthritis. COMPARISON: None available. TECHNIQUE: Bilateral ankle each 3 views. Bilateral foot each 3 views. FINDINGS: Right ankle: Soft tissue swelling. No evidence of acute fracture or dislocation. Subchondral cyst in the anterior tibial plafond. Ankle mortise is maintained. Small chronic-appearing ossification distal to the medial malleolus. Medial malleolar spurring. Plantar and posterior calcaneal spurring. Right foot: No acute fracture or dislocation. Tarsometatarsal alignment is maintained. No significant arthropathy seen. Chronic-appearing heterotopic ossification/spurring at the base of the fifth metatarsal. No erosions. Left ankle: Soft tissue swelling. Spurring/chronic ossification at the distal aspect medial malleolus. Ankle mortise is maintained. No acute fracture or dislocation. No erosions. Prominent posterior and plantar calcaneal spurring. Dystrophic calcification in the soft tissues anterior to the distal tibia. Left foot: No acute fracture or dislocation. No significant arthropathy seen. No erosions. No abnormal soft tissue calcification. XR/XR hand wrist LT IMPRESSION: Right ankle: Mild tibiotalar joint arthritis. Calcaneal spurring. Right foot: No acute osseous abnormality. Left ankle: No acute findings. Calcaneal spurring. Left foot: No acute findings.
--- NOTE | ~2024-05-11 | XR_ITS ---
EXAMINATION: X-RAY BILATERAL ANKLE X-RAY BILATERAL FEET CLINICAL INFORMATION: Rheumatoid arthritis. COMPARISON: None available. TECHNIQUE: Bilateral ankle each 3 views. Bilateral foot each 3 views. FINDINGS: Right ankle: Soft tissue swelling. No evidence of acute fracture or dislocation. Subchondral cyst in the anterior tibial plafond. Ankle mortise is maintained. Small chronic-appearing ossification distal to the medial malleolus. Medial malleolar spurring. Plantar and posterior calcaneal spurring. Right foot: No acute fracture or dislocation. Tarsometatarsal alignment is maintained. No significant arthropathy seen. Chronic-appearing heterotopic ossification/spurring at the base of the fifth metatarsal. No erosions. Left ankle: Soft tissue swelling. Spurring/chronic ossification at the distal aspect medial malleolus. Ankle mortise is maintained. No acute fracture or dislocation. No erosions. Prominent posterior and plantar calcaneal spurring. Dystrophic calcification in the soft tissues anterior to the distal tibia. Left foot: No acute fracture or dislocation. No significant arthropathy seen. No erosions. No abnormal soft tissue calcification. XR/XR ankle LT min 3V IMPRESSION: Right ankle: Mild tibiotalar joint arthritis. Calcaneal spurring. Right foot: No acute osseous abnormality. Left ankle: No acute findings. Calcaneal spurring. Left foot: No acute findings.
--- NOTE | ~2024-05-11 | XR_ITS ---
EXAMINATION: X-RAY BILATERAL ANKLE X-RAY BILATERAL FEET CLINICAL INFORMATION: Rheumatoid arthritis. COMPARISON: None available. TECHNIQUE: Bilateral ankle each 3 views. Bilateral foot each 3 views. FINDINGS: Right ankle: Soft tissue swelling. No evidence of acute fracture or dislocation. Subchondral cyst in the anterior tibial plafond. Ankle mortise is maintained. Small chronic-appearing ossification distal to the medial malleolus. Medial malleolar spurring. Plantar and posterior calcaneal spurring. Right foot: No acute fracture or dislocation. Tarsometatarsal alignment is maintained. No significant arthropathy seen. Chronic-appearing heterotopic ossification/spurring at the base of the fifth metatarsal. No erosions. Left ankle: Soft tissue swelling. Spurring/chronic ossification at the distal aspect medial malleolus. Ankle mortise is maintained. No acute fracture or dislocation. No erosions. Prominent posterior and plantar calcaneal spurring. Dystrophic calcification in the soft tissues anterior to the distal tibia. Left foot: No acute fracture or dislocation. No significant arthropathy seen. No erosions. No abnormal soft tissue calcification. XR/XR ankle RT min 3V IMPRESSION: Right ankle: Mild tibiotalar joint arthritis. Calcaneal spurring. Right foot: No acute osseous abnormality. Left ankle: No acute findings. Calcaneal spurring. Left foot: No acute findings.
--- NOTE | ~2024-05-11 | XR_ITS ---
EXAMINATION: X-RAY BILATERAL ANKLE X-RAY BILATERAL FEET CLINICAL INFORMATION: Rheumatoid arthritis. COMPARISON: None available. TECHNIQUE: Bilateral ankle each 3 views. Bilateral foot each 3 views. FINDINGS: Right ankle: Soft tissue swelling. No evidence of acute fracture or dislocation. Subchondral cyst in the anterior tibial plafond. Ankle mortise is maintained. Small chronic-appearing ossification distal to the medial malleolus. Medial malleolar spurring. Plantar and posterior calcaneal spurring. Right foot: No acute fracture or dislocation. Tarsometatarsal alignment is maintained. No significant arthropathy seen. Chronic-appearing heterotopic ossification/spurring at the base of the fifth metatarsal. No erosions. Left ankle: Soft tissue swelling. Spurring/chronic ossification at the distal aspect medial malleolus. Ankle mortise is maintained. No acute fracture or dislocation. No erosions. Prominent posterior and plantar calcaneal spurring. Dystrophic calcification in the soft tissues anterior to the distal tibia. Left foot: No acute fracture or dislocation. No significant arthropathy seen. No erosions. No abnormal soft tissue calcification. XR/XR foot LT min 3V IMPRESSION: Right ankle: Mild tibiotalar joint arthritis. Calcaneal spurring. Right foot: No acute osseous abnormality. Left ankle: No acute findings. Calcaneal spurring. Left foot: No acute findings.
[2024-05-11 14:59] LABS: MANUAL DIFF FLAG NO
[2024-05-11 15:14] LABS: Basophils Absolute Auto 0.1 X10*3/uL (0.0-0.2); Basophils Percent Auto 0.6 % (0-2); Eosinophils Absolute Auto 0.4 X10*3/uL (0.0-0.4); Eosinophils Percent Auto 4.5 % (0-4); Hematocrit 40.7 % (37.0-47.0); Hemoglobin 13.3 g/dl (12.0-16.0); Imm Gran Abs Auto 0.03 X10*3/uL (0.00-0.03); Imm Gran Pct Auto 0.3 % (0.0-0.4); Lymphocytes Absolute Auto 3.4 X10*3/uL (1.2-4.9); Lymphocytes Percent Auto 39.4 % (20-40); Mean Corpuscular HGB Conc 32.7 g/dl (31.0-35.0); Mean Corpuscular Hemoglobin 28.5 pg (27.0-33.0); Mean Corpuscular Volume 87.3 fL (80.0-98.0); Mean Platelet Volume 10.2 fL (9.4-12.3); Monocytes Absolute Auto 0.6 X10*3/uL (0.1-1.2); Monocytes Percent Auto 6.9 % (2-11); Neutrophils Absolute Auto 4.2 x10*3/uL (2.0-8.3); Neutrophils Percent Auto 48.3 % (45-73); Platelet Count 301 X10*3/uL (160-400); Red Blood Count 4.66 X10*6/uL (4.20-5.50); Red Cell Distribution Width 13.1 % (11.0-16.0); White Blood Count 8.7 X10*3/uL (4.8-10.8)
[2024-05-11 15:43] LABS: Alanine Aminotransferase 38 U/L (0-31); Albumin Level 4.3 g/dL (3.5-5.0); Alkaline Phosphatase 49 U/L (39-117); Anion Gap 12 (12-20); Aspartate Amino Transferase 32 U/L (5-31); Bilirubin Total 0.4 mg/dL (0.0-1.0); Blood Urea Nitrogen 15 mg/dL (9-16); C Reactive Protein 1.62 mg/dL (< or = 0.50); Calcium 9.8 mg/dL (8.4-10.2); Carbon Dioxide 27 mmol/L (22-29); Chloride 104 mmol/L (96-108); Estimated Glomerular Filt Rate > 60; Glucose Random 82 mg/dL (60-115); Potassium 3.9 mmol/L (3.3-5.1); Sodium 139 mmol/L (135-145); Total Protein 8.5 g/dL (6.5-8.0)
[2024-05-11 16:04] LABS: Erythrocyte Sedimentation Rate 27 MM/HR (0-20)
[2024-05-12 08:15] LABS: HBS Num1 0.17 mIU/mL (0-7.99); HBc Num1 0.12 S/CO (0.00-0.79); HBsAGNum1 0.23 S/CO (0.00-0.99); Hepatitis A Antibody IgM 0.11 Index (0-0.79); Hepatitis B Core Antibody Nonreactive (Nonreactive); Hepatitis B Surface Antigen Negative (Negative); ~HepC Num1 0.08 S/CO (0.00-0.79); ~Hepatitis A Antibody IgM Nonreactive (Nonreactive); ~Hepatitis B Surface Antibody NONREACTIVE (Nonreactive); ~Hepatitis C Antibody Nonreactive (Nonreactive)
[2024-05-13 21:44] LABS: TS Negative Control Passed; TS Panel A 0; TS Panel B 0; TS Positive Control Passed; TSpotTB Negative (Negative)
[2024-05-16 21:19] LABS: Prot Elec - Alpha1 0.3 g/dL (0.2-0.3); Prot Elec - Alpha2 0.8 g/dL (0.5-0.9); Prot Elec - Beta 1 0.6 g/dL (0.4-0.6); Prot Elec - Beta 2 0.7 g/dL (0.2-0.5); Prot Elec - Gamma 1.7 g/dL (0.8-1.7)
[2024-05-17 09:24] LABS: IgA 780 mg/dL (47-310); IgG 1724 mg/dL (600-1640); IgM 50 mg/dL (50-300)
[2024-05-21 20:48] LABS: Centromere Protein A Ab <11 SI (<11); Centromere Protein B Ab <11 SI (<11); Fibrillarin Ab <11 SI (<11); PM SCL 100 Ab <11 SI (<11); PM SCL 75 Ab <11 SI (<11); RNA Polymerase III RP11 Ab <11 SI (<11); RNA Polymerase III RP155 Ab <11 SI (<11); SCL-70 Extractable Nuclear Ab <11 SI (<11); Th-To Ab <11 SI (<11); U1 SNRNP RNP 70KD <11 SI (<11); U1 SNRNP RNP A <11 SI (<11); U1 SNRNP RNP C <11 SI (<11)
[2024-05-22 00:42] LABS: Cytosolic 5'nuc 1A Ab IgG <5 Units; Ej Ab <11 SI (<11); HMGCR Ab IgG <2 CU (<20); Jo-1 Ab <11 SI (<11); MDA5 Ab <11 SI (<11); Mi-2 alpha Ab <11 SI (<11); Mi-2 beta Ab <11 SI (<11); NXP-2 (MJ) Ab <11 SI (<11); Oj Ab <11 SI (<11); Pl-12 Ab <11 SI (<11); Pl-7 Ab <11 SI (<11); SRP Ab <11 SI (<11); TIF1 gamma Ab <11 SI (<11)
== END 2024-05-11 13:47 | disposition home or self-care (01) ==
LOC: HO.XRAY 13:46
PROVIDERS: PCP Internal Medicine; Visit Provider Student in an Organized Health Care Education/Training Program
DX: Z11.7 Encounter for testing for latent tuberculosis infection (principal); Z11.59 Encounter for screening for other viral diseases; M05.9 Rheumatoid arthritis with rheumatoid factor, unspecified; M60.9 Myositis, unspecified; J98.4 Other disorders of lung; Z72.89 Other problems related to lifestyle
CPT/HCPCS: 36415; 73110; 73130; 73610; 73630; 80053; 82550; 82784; 83516; 83520; 84165; 84182; 85025; 85652; 86140; 86235; 86334; 86481; 86704; 86706; 86709; 86803; 87340

== ENCOUNTER 2024-07-19 10:07 | Outpatient (AMB) | payer OTHER, SELFPAY ==
--- NOTE | 2024-07-19 10:12 | A.OFFVIS_ITS ---
Vital Signs 07/19/24 10:13 Height 5 ft 7 in Weight 274 lb 7.608 oz BMI 43.0 BP 128/70 Blood Pressure Location Lt brachial Position Sitting Pulse 86 Pulse Source Pulse Oximeter Pulse Oximetry (%) 100 Oxygen Delivery Method Room Air Intake Visit Reasons: ILD [employer] Required: No Allergies clindamycin Adverse Reaction (Severe, Verified 07/19/24 10:17) Hives Iodinated Contrast Media Adverse Reaction (Severe, Verified 07/19/24 10:17) Vomiting Penicillins Adverse Reaction (Severe, Verified 07/19/24 10:17) Diarrhea HPI Comments Details: The patient is a 59-year-old woman with a known history of rheumatoid arthritis and interstitial lung disease. The patient had been having worsening shortness of breath and was evaluated by a fellow supply chain procurement manager from [place]. in 2018 the patient undergo went a video-assisted thoracoscopy with wedge biopsies of the right middle lobe and also the right lower lobe. At this point we do not have the biopsy results although we did request done for [facility]. She did follow-up with the supply chain procurement manager at the time and he recommended going on cortical steroid therapy. The patient preferred not to in view of the adverse effects from prednisone. In the meantime she has had multiple medications she has use for rheumatoid arthritis. Right now her symptoms are active with small joint involvement. The patient is currently being arranged to have a referral with a strip machine tender. during the visit we did go for 6 minutes walk test. The patient did well and did not need oxygen although heart rate was indeed elevated. Will go ahead and have her undergo pulmonary function studies and also Will request additional blood work. Will review her last CT scan and pathology and at that point will likely need additional imaging studies. 07/27/2022 the patient is here for a pulmonary follow-up visit. Overall she is doing relatively well. Denies any significant shortness of breath when he worsening dyspnea on exertion. Cough seems to be under control. The patient is not using inhalers. I did get the pathology from her wedge biopsy done at [facility]. 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 Explained to her that this is a reassuring finding as this is responsive to medication. Her blood work was all negative. Her CCP was negative for that she does have a history rheumatoid arthritis. It may just be in remission. She still has arthritis symptoms and she does take [id number] NSAIDs. She used to have strip machine tender but she is not following 1 regularly at this time. her last CT scan that she had was at [facility] that was back in October 2021 demonstrating the interstitial lung disease. Clinically the patient is doing well so therefore will follow-up with a repeat CT scan in 6 months. If the patient has any worsening symptoms prior to that she is to call so we can evaluated earlier time. We also reviewed her pulmonary function studies again consistent with restrictive lung disease primarily due to her interstitial lung disease but also elevated BMI. she was already plan to start exercising and weight management which is reassuring. 02/04/2023 the patient is here for pulmonary follow-up visit. Overall she is doing well. Denies any significant shortness of breath or any worsening of her dyspnea symptoms. We did review her CT scan of the chest. Unfortunately has not been read as of yet. But I did look at it with her. She does have moderate amount of subpleural reticular changes consistent with scarring and also primarily at the bases. I do not see any evidence of any ground-glass opacities to go along with active cellular NSIP. This is reassuring. At this point we cannot compare 1 CT scan to the other. Her last PFTs were back in July 2022. Will go ahead and request PFTs at next visit in 6 months to see if there is any progression of disease. If there is progression we can consider antifibrotic agents to try to a slow down the progressive aspects of her connective tissue disease related interstitial lung disease. She does have some active arthritis symptoms. Unfortunately she has not followed up with Rheumatology. She needs to have a strip machine tender followed closely. Will go ahead and start her on Plaquenil as his work for her in the past. But when she sees her strip machine tender she will be able to have that either continued or change. Will make a referral at this time. In the meantime she is using her rescue inhaler as needed. The patient has not required any prednisone which she would like to avoid it if possible. 08/06/2023 the patient is here for a pulmonary follow-up visit. The patient overall has been about the same. She does have a good days and bad days. Currently she is doing well. The patient does have some dyspnea on exertion mild in severity. She does not require oxygen. We did review her pulmonary function studies that she just had an compared to the previous 1 from last year. It appears that she has a total lung capacity of 61% which is basically unchanged from last year. This is reassuring overall. Her diffusing capacity is also reassuring. Therefore based on her PFTs it does not appear to be any significant progression of disease in the last year. Therefore we can hold off on antifibrotic agents at this time. She also had been on the Plaquenil. Although for some reason she stopped it altogether. Explained to her the importance of controlling the connective tissue disease in order to avoid any other extra articular contain manifestations such as the interstitial lung disease. The patient understands and will start taking the medication again. Otherwise will follow-up in the springtime with a repeat CT scan to assess for any progression of the pulmonary fibrosis. 04/13/2024 the patient is here for a pulmonary follow-up visit. Overall she is doing okay. The last few weeks she has had to use her rescue inhaler more often. Possibly related to the change season and also the humidity. Otherwise she has been doing well denies any significant shortness of breath. She does have mild dyspnea on exertion. She also had lower extremity edema. She did not take the Lasix the last time. She needs to be careful with sodium intake. We did review her CT scan of the chest that she had in 01/19/2024 and we did review it and compared to the CT scan from 2022. No significant changes in the interstitial lung disease suggesting stable chronic interstitial fibrosis from her underlying connective tissue disease. It appears to be stable at this time. She will be following up closely with rheumatology. The patient also is describing daytime drowsiness. Her Oakley score is elevated 11/24. She has woken up short of breath. She does have significant snoring. She does have cardiovascular risk factors and significant lower extremity edema. Will go ahead and request a sleep study at this time her follow-up afterwards. The patient will also undergo blood work just to monitor closely her interstitial lung disease. 07/19/2024 the patient is here for sick visit. She has been coughing now for about 6-8 weeks. Apparently she started with a URI and she did test negative for COVID. Subsequently after that she started coughing. Moderate severity sometimes severe. Sometimes she gags. She does bring up some phlegm yellowish in color at times. But not always. It has been difficult to expectorate. She has also been short of breath. She does have a nebulizer but she does not use it because she gets too tremulous. We also reviewed her last CT scan that she had back in 01/19/2024 demonstrating the stable chronic interstitial disease. at this point is related to her rheumatoid arthritis and therefore by stabilizing her RA we should see stabilization of the interstitial lung disease. The patient will be started on therapy for bronchitis in addition to asthma exacerbation. Will also provide him with cough medication. If the patient is no better she will call me in 48 hours. Otherwise she will return in 4-6 months with a chest x-ray. [facility] Medical History Chronic restrictive lung disease Rheumatoid arthritis ILD (interstitial lung disease) Surgical History History of cataract surgery History of lung biopsy History of cholecystectomy History of bilateral oophorectomies Family History Mother Rheumatoid arthritis Sister Osteoarthritis Hypertension Brother Osteoarthritis Skin cancer Father Type 2 diabetes mellitus Osteoarthritis Hypertension Social History Alcohol intake: current Patient Tobacco Use Status: Never used Tobacco Review of Systems Const Denies fever(s) Eyes Denies change in vision ENT Denies change in voice Card Denies chest pain and Reports dyspnea on exertion Resp Reports change in phlegm color, Reports chest congestion, Reports cough, Denies hemoptysis, Reports dyspnea on exertion and Reports wheezing GI Reports no additional complaints Reports no additional complaints Musc Reports as per HPI, Reports arthralgias and Reports joint swelling Skin/Breast Denies rash Neuro Reports no additional complaints Aller/Immun Reports wheezing Physical Exam Vital Signs: Last Vital Signs Pulse 86 07/19/24 10:13 BP 128/70 07/19/24 10:13 Pulse Ox 100 07/19/24 10:13 Oxygen Delivery Method Room Air 07/19/24 10:13 BMI result Body Mass Index 43.0 Const General: comfortable HEENT Head: Yes normal to inspection Eyes General: appearance normal, both eyes and all related structures Neck Neck: Yes normal visual inspection and Yes supple Chest Chest palpation & inspection: normal inspection of the chest Resp Effort & Inspection: Actively coughing and prolonged expiratory phase Auscultation: diminished lung sounds Cardio Rate: regular rate Rhythm: regular rhythm Heart sounds: S1 normal heart sound present and S2 normal heart sound present GI Inspection: Yes normal to inspection Skin General skin exam: no rashes or lesions noted Extrem General: Yes normal to inspection Assessment & Plan Assessment & Plan (1) ILD (interstitial lung disease): Comment: cellular NSIP/RA related ILD Code(s): J84.9 - Interstitial pulmonary disease, unspecified Category: Medical (2) Rheumatoid arthritis: Comment: treatment 1999- 2009 with Enbrel and Plaquenil methotrexate started ~ 2011 but patient stopped it - flare +DIYA RF, CCP negative Code(s): M06.9 - Rheumatoid arthritis, unspecified Category: Medical Qualifiers: Rheumatoid arthritis location: unspecified site Rheumatoid factor presence: with rheumatoid factor Qualified Code(s): M05.9 - Rheumatoid arthritis with rheumatoid factor, unspecified (3) Chronic restrictive lung disease: Code(s): J98.4 - Other disorders of lung Category: Medical (4) JENNIFER (obstructive sleep apnea): Code(s): G47.33 - Obstructive sleep apnea (adult) (pediatric) Category: Medical (5) Bronchitis: Code(s): J40 - Bronchitis, not specified as acute or chronic Category: Medical Plan start Doxycycline start medrol pack cough meds ALCON as needed low sodium diet consider OFEV if progressive fibrosis, fibrosis stable Plaquenil CXR F/U 6 months or sooner if any worsening symptoms Orders: Orders XR chest 2V Today J84.9 - Interstitial pulmonary disease, unspecified Medications: New benzonatate 200 mg PO BID 30 days PRN 60 caps 5RF cough doxycycline hyclate 100 mg PO BID 10 days 20 caps 0RF methylprednisolone (Medrol (Willie)) PO PER PKG DIR 6 days 21 ea 0RF benzonatate 200 mg PO BID 30 days PRN 60 caps 0RF cough codeine-guaifenesin 10-100 mg/5 mL 10 mL PO Q6H 10 days PRN 300 mL 0RF cough codeine-guaifenesin 10-100 mg/5 mL 10 mL PO Q6H 10 days PRN 300 mL 0RF cough doxycycline hyclate 100 mg PO BID 10 days 20 caps 0RF methylprednisolone (Medrol (Willie)) PO PER PKG DIR 6 days 21 ea 0RF Refilled albuterol sulfate 90 mcg/actuation 2 puffs inhalation Q6H PRN 8.5 grams 11RF shortness of breath or wheezing Coding Level of Care Code Est Pt Level 4 (51162) Diagnoses ILD (interstitial lung disease) J84.9 Rheumatoid arthritis with positive rheumatoid factor, involving unspecified site M05.9 Rheumatoid arthritis location: unspecified site Rheumatoid factor presence: with rheumatoid factor Chronic restrictive lung disease J98.4 JENNIFER (obstructive sleep apnea) G47.33 Bronchitis J40
[2024-07-19 10:13] VITALS: BP 128/70; PULSE 86; O2SAT 100; BMI 43.0
== END 2024-07-19 10:35 | disposition home or self-care (01) ==
PROVIDERS: PCP Internal Medicine; Visit Provider Hospitalist
DX: J84.9 Interstitial pulmonary disease, unspecified (principal); M05.9 Rheumatoid arthritis with rheumatoid factor, unspecified; J98.4 Other disorders of lung; G47.33 Obstructive sleep apnea (adult) (pediatric); J40 Bronchitis, not specified as acute or chronic
CPT/HCPCS: 99214

== ENCOUNTER → 2024-07-19 10:07 | Outpatient (BNVA) | payer OTHER, SELFPAY | PROVIDERS: PCP Internal Medicine; Visit Provider Hospitalist | DX: J84.9 Interstitial pulmonary disease, unspecified (principal); G47.33 Obstructive sleep apnea (adult) (pediatric) ==

== ENCOUNTER 2024-09-12 13:32 | Outpatient (AMB) | payer OTHER, SELFPAY ==
--- NOTE | 2024-09-12 13:34 | MHC.OFFVIS ---
Vital Signs 09/12/24 13:44 Height 5 ft 7 in Weight 277 lb 1.937 oz BMI 43.4 BP 122/70 Blood Pressure Location Rt brachial Position Sitting Pulse 69 Pulse Source Pulse Oximeter Pulse Oximetry (%) 99 Oxygen Delivery Method Room Air Intake Visit Reasons: RA/CM Intake Note: Patient presents for RA. Allergies clindamycin Adverse Reaction (Severe, Verified 09/12/24 13:37) Hives Iodinated Contrast Media Adverse Reaction (Severe, Verified 09/12/24 13:37) Vomiting Penicillins Adverse Reaction (Severe, Verified 09/12/24 13:37) Diarrhea Medication List - Last Reconciled 09/12/24 by Noah Thomas MD acetaminophen ER 650 mg PO Q8H albuterol sulfate 90 mcg/actuation 2 puffs inhalation Q6H PRN albuterol sulfate 2.5 mg (3 mL) inhalation Q6H PRN 30 days [id number]-cxeotxae 250-250-65 mg (Excedrin Extra Strength) 1 tab PO Q4-6H PRN benzonatate 200 mg PO BID PRN 30 days doxycycline hyclate 100 mg PO BID 10 days hydroxychloroquine 200 mg PO BID meclizine 12.5 mg PO TID PRN naproxen sodium (Flanax (naproxen)) 220 mg PO Q8H PRN nebulizers As directed HPI Comments Details: This is a 58-year-old female with seronegative RA with CTD related ILD who presents for follow-up. She has been taking hydroxychloroquine 200 mg Twice daily regularly since last visit. She states that her joint pains are much improved. Only her knees bother her at this time. The knee pain is persistent without any significant swelling. [facility] Medical History Chronic restrictive lung disease Rheumatoid arthritis ILD (interstitial lung disease) Surgical History History of cataract surgery History of lung biopsy History of cholecystectomy History of bilateral oophorectomies Family History Mother Rheumatoid arthritis Sister Osteoarthritis Hypertension Brother Osteoarthritis Skin cancer Father Type 2 diabetes mellitus Osteoarthritis Hypertension Social History Alcohol intake: current Patient Tobacco Use Status: Never used Tobacco Female Reproductive History Menstrual Total pregnancies: 1 Full term: 1 Review of Systems Musc Reports arthralgias, Denies joint swelling and Reports stiffness Physical Exam Vital Signs: Last Vital Signs Pulse 69 09/12/24 13:44 BP 122/70 09/12/24 13:44 Pulse Ox 99 09/12/24 13:44 Oxygen Delivery Method Room Air 09/12/24 13:44 BMI result Body Mass Index 43.4 Const General: cooperative, healthy appearing and comfortable Nutritional Appearance: obese morbidly obese Orientation/consciousness: patient oriented x3 Limitations: no limitations HEENT Head: Yes normocephalic and Yes atraumatic Mouth: moist mucous membranes Resp Effort & Inspection: normal respiratory effort and able to speak in complete sentences Auscultation: crackles bilateral at the base Skin Other: Very faint dry pink rashes on PIPs Neuro General: patient oriented x3 Extrem Other: Bilateral wrist swelling and tenderness resolved No Pain with flexion-extension No swelling or tenderness both hands and fingers bilaterally Bilateral knee pain with full flexion and extension but no swelling or warmth Assessment & Plan Assessment & Plan (1) Rheumatoid arthritis: Comment: +DIYA RF, CCP negative treatment 1999- 2009 with Enbrel and Plaquenil methotrexate started ~ 2011 but patient stopped it - flare HCQ restarted 05/2024 effective Code(s): M06.9 - Rheumatoid arthritis, unspecified Category: Medical Qualifiers: Rheumatoid arthritis location: unspecified site Rheumatoid factor presence: with rheumatoid factor Qualified Code(s): M05.9 - Rheumatoid arthritis with rheumatoid factor, unspecified Plan: This is a 59-year-old female with seronegative RA who presents for follow-up. She also has known NSIP ILD. Her inflammatory arthritis is much better controlled on hydroxychloroquine 200 mg Twice daily. Continue with hydroxychloroquine 200 mg Twice daily Labs before next visit in 6 months (2) Chronic restrictive lung disease: Code(s): J98.4 - Other disorders of lung Category: Medical Plan: With positive DIYA nucleolar pattern. Comprehensive serology otherwise unremarkable. NSIP on lung biopsy. CT chest from this year is stable (3) Long-term use of hydroxychloroquine: Code(s): Z79.899 - Other group home (current) drug therapy Category: Medical Plan: Discussed risk of retinopathy associated with hydroxychloroquine. Patient follows up regularly with Ophthalmology. Advised patient to have her hematology supervisor send me the most recent report (4) Bilateral primary osteoarthritis of knee: Code(s): M17.0 - Bilateral primary osteoarthritis of knee Category: Medical Plan: Patient continues to take naproxen Twice daily. Discussed long-term side effects of NSAIDs. Advised patient to stay away from systemic NSAIDs and use them only sparingly. Substituted with Tylenol Arthritis. Apply Voltaren gel 4 times a day. Referred patient to PT Plan I spent 30 minutes reviewing patient's chart, evaluating patient, ordering diagnostic workup, counseling patient and documenting in the chart Orders: Orders Erythrocyte Sedimentation Rate 6 Months M05.9 - Rheumatoid arthritis with rheumatoid factor, unspecified Complete Blood Count Auto Diff 6 Months M05.9 - Rheumatoid arthritis with rheumatoid factor, unspecified Comprehensive Met. Panel 6 Months M05.9 - Rheumatoid arthritis with rheumatoid factor, unspecified C Reactive Protein 6 Months M05.9 - Rheumatoid arthritis with rheumatoid factor, unspecified PT Evaluation and Treatment Today M17.0 - Bilateral primary osteoarthritis of knee Medications: Refilled hydroxychloroquine 200 mg PO BID 180 tabs 1RF Coding Level of Care Code Est Pt Level 4 (68440) Complex EM visit Add On G2211 Diagnoses Rheumatoid arthritis with positive rheumatoid factor, involving unspecified site M05.9 Rheumatoid arthritis location: unspecified site Rheumatoid factor presence: with rheumatoid factor Chronic restrictive lung disease J98.4 Long-term use of hydroxychloroquine Z79.899 Bilateral primary osteoarthritis of knee M17.0
[2024-09-12 13:44] VITALS: BP 122/70; PULSE 69; O2SAT 99; BMI 43.4
== END 2024-09-12 14:12 | disposition home or self-care (01) ==
PROVIDERS: PCP Internal Medicine; Visit Provider Student in an Organized Health Care Education/Training Program
DX: M05.79 Rheumatoid arthritis with rheumatoid factor of multiple sites without organ or systems involvement (principal); J98.4 Other disorders of lung; Z79.899 Other long term (current) drug therapy; M17.0 Bilateral primary osteoarthritis of knee
CPT/HCPCS: 99214

== ENCOUNTER 2024-11-13 09:55 | Outpatient (AMB) | payer OTHER, SELFPAY ==
--- NOTE | 2024-11-13 10:09 | A.OFFVIS_ITS ---
Vital Signs 11/13/24 10:10 Height 5 ft 7 in Weight 279 lb 15.793 oz BMI 43.8 BP 142/88 H Blood Pressure Location Rt brachial Position Sitting Pulse 70 Pulse Source Pulse Oximeter Pulse Oximetry (%) 100 Oxygen Delivery Method Room Air Intake Visit Reasons: ILD Allergies clindamycin Adverse Reaction (Severe, Verified 11/13/24 10:12) Hives Iodinated Contrast Media Adverse Reaction (Severe, Verified 11/13/24 10:12) Vomiting Penicillins Adverse Reaction (Severe, Verified 11/13/24 10:12) Diarrhea HPI Comments Details: The patient is a 59-year-old woman with a known history of rheumatoid arthritis and interstitial lung disease. The patient had been having worsening shortness of breath and was evaluated by a fellow heater tender from [place]. in 2019 the patient undergo went a video-assisted thoracoscopy with wedge biopsies of the right middle lobe and also the right lower lobe. At this point we do not have the biopsy results although we did request done for [facility]. She did follow-up with the heater tender at the time and he recommended going on cortical steroid therapy. The patient preferred not to in view of the adverse effects from prednisone. In the meantime she has had multiple medications she has use for rheumatoid arthritis. Right now her symptoms are active with small joint involvement. The patient is currently being arranged to have a referral with a dish up person. during the visit we did go for 6 minutes walk test. The patient did well and did not need oxygen although heart rate was indeed elevated. Will go ahead and have her undergo pulmonary function studies and also Will request additional blood work. Will review her last CT scan and pathology and at that point will likely need additional imaging studies. 07/27/2022 the patient is here for a pulmonary follow-up visit. Overall she is doing relatively well. Denies any significant shortness of breath when he wor sening dyspnea on exertion. Cough seems to be under control. The patient is not using inhalers. I did get the pathology from her wedge biopsy done at [facility]. 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 Explained to her that this is a reassuring finding as this is responsive to medication. Her blood work was all negative. Her CCP was negative for that she does have a history rheumatoid arthritis. It may just be in remission. She still has arthritis symptoms and she does take [id number] NSAIDs. She used to have dish up person but she is not following 1 regularly at this time. her last CT scan that she had was at [facility] that was back in October 2021 demonstrating the interstitial lung disease. Clinically the patient is doing well so therefore will follow-up with a repeat CT scan in 6 months. If the patient has any worsening symptoms prior to that she is to call so we can evaluated earlier time. We also reviewed her pulmonary function studies again consistent with restrictive lung disease primarily due to her interstitial lung disease but also elevated BMI. she was already plan to start exercising and weight management which is reassuring. 02/04/2023 the patient is here for pulmonary follow-up visit. Overall she is doing well. Denies any significant shortness of breath or any worsening of her dyspnea symptoms. We did review her CT scan of the chest. Unfortunately has not been read as of yet. But I did look at it with her. She does have moderate amount of subpleural reticular changes consistent with scarring and also primarily at the bases. I do not see any evidence of any ground-glass opacities to go along with active cellular NSIP. This is reassuring. At this point we cannot compare 1 CT scan to the other. Her last PFTs were back in July 2022. Will go ahead and request PFTs at next visit in 6 months to see if there is any progression of disease. If there is progression we can consider antifibrotic agents to try to a slow down the progressive aspects of her connective tissue disease related interstitial lung disease. She does have some active arthritis symptoms. Unfortunately she has not followed up with Rheumatology. She needs to have a dish up person followed closely. Will go ahead and start her on Plaquenil as his work for her in the past. But when she sees her dish up person she will be able to have that either continued or change. Will make a referral at this time. In the meantime she is using her rescue inhaler as needed. The patient has not required any prednisone which she would like to avoid it if possible. 08/06/2023 the patient is here for a pulmonary follow-up visit. The patient overall has been about the same. She does have a good days and bad days. Currently she is doing well. The patient does have some dyspnea on exertion mild in severity. She does not require oxygen. We did review her pulmonary function studies that she just had an compared to the previous 1 from last year. It appears that she has a total lung capacity of 61% which is basically unchanged from last year. This is reassuring overall. Her diffusing capacity is also reassuring. Therefore based on her PFTs it does not appear to be any significant progression of disease in the last year. Therefore we can hold off on antifibrotic agents at this time. She also had been on the Plaquenil. Although for some reason she stopped it altogether. Explained to her the importance of controlling the connective tissue disease in order to avoid any other extra articular contain manifestations such as the interstitial lung disease. The patient understands and will start taking the medication again. Otherwise will follow-up in the springtime with a repeat CT scan to assess for any progression of the pulmonary fibrosis. 04/13/2024 the patient is here for a pulmonary follow-up visit. Overall she is doing okay. The last few weeks she has had to use her rescue inhaler more often. Possibly related to the change season and also the humidity. Otherwise she has been doing well denies any significant shortness of breath. She does have mild dyspnea on exertion. She also had lower extremity edema. She did not take the Lasix the last time. She needs to be careful with sodium intake. We did review her CT scan of the chest that she had in 01/19/2024 and we did review it and compared to the CT scan from 2022. No significant changes in the interstitial lung disease suggesting stable chronic interstitial fibrosis from her underlying connective tissue disease. It appears to be stable at this time. She will be following up closely with rheumatology. The patient also is describing daytime drowsiness. Her [place] score is elevated 11/24. She has woken up short of breath. She does have significant snoring. She does have cardiovascular risk factors and significant lower extremity edema. Will go ahead and request a sleep study at this time her follow-up afterwards. The pat ient will also undergo blood work just to monitor closely her interstitial lung disease. 07/19/2024 the patient is here for sick visit. She has been coughing now for about 6-8 weeks. Apparently she started with a URI and she did test negative for COVID. Subsequently after that she started coughing. Moderate severity sometimes severe. Sometimes she gags. She does bring up some phlegm yellowish in color at times. But not always. It has been difficult to expectorate. She has also been short of breath. She does have a nebulizer but she does not use it because she gets too tremulous. We also reviewed her last CT scan that she had back in 01/19/2024 demonstrating the stable chronic interstitial disease. at this point is related to her rheumatoid arthritis and therefore by stabiliz ing her RA we should see stabilization of the interstitial lung disease. The patient will be started on therapy for bronchitis in addition to asthma exacerbation. Will also provide him with cough medication. If the patient is no better she will call me in 48 hours. Otherwise she will return in 4-6 months with a chest x-ray. 11/13/2024 the patient is here for a pulmonary follow-up visit. Overall the patient has been doing well from a respiratory status. Denies any worsening shortness of breath. She continues on the Plaquenil. Denies any visual changes. She is going to have an eye test done soon. The patient had a CT scan back in 01/19/2024. She is due for repeat CT scan in 01/18/2025. Will see if there is any progression of her interstitial lung disease. If we see any progression will consider Ofev. Otherwise patient is without any other complaints. [facility] Medical History Chronic restrictive lung disease Rheumatoid arthritis ILD (interstitial lung disease) Surgical History History of cataract surgery History of lung biopsy History of cholecystectomy History of bilateral oophorectomies Family History Mother Rheumatoid arthritis Sister Osteoarthritis Hypertension Brother Osteoarthritis Skin cancer Father Type 2 diabetes mellitus Osteoarthritis Hypertension Social History Alcohol intake: current Patient Tobacco Use Status: Never used Tobacco Review of Systems Const Denies fever(s) Eyes Denies change in vision ENT Denies change in voice Card Denies chest pain and Reports dyspnea on exertion Resp Reports change in phlegm color, Reports chest congestion, Reports cough, Denies hemoptysis, Reports dyspnea on exertion and Reports wheezing GI Reports no additional complaints Reports no additional complaints Musc Reports as per HPI, Reports arthralgias and Reports joint swelling Skin/Breast Denies rash Neuro Reports no additional complaints Aller/Immun Reports wheezing Physical Exam Vital Signs: Last Vital Signs Pulse 70 11/13/24 10:10 BP 142/88 H 11/13/24 10:10 Pulse Ox 100 11/13/24 10:10 Oxygen Delivery Method Room Air 11/13/24 10:10 BMI result Body Mass Index 43.8 Const General: comfortable HEENT Head: Yes normal to inspection Eyes General: appearance normal, both eyes and all related structures Neck Neck: Yes normal visual inspection and Yes supple Chest Chest palpation & inspection: normal inspection of the chest Resp Effort & Inspection: normal respiratory effort Auscultation: diminished lung sounds Cardio Rate: regular rate Rhythm: regular rhythm Heart sounds: S1 normal heart sound present and S2 normal heart sound present GI Inspection: Yes normal to inspection Skin General skin exam: no rashes or lesions noted Extrem General: Yes normal to inspection Assessment & Plan Assessment & Plan (1) ILD (interstitial lung disease): Comment: cellular NSIP/RA related ILD Code(s): J84.9 - Interstitial pulmonary disease, unspecified Category: Medical (2) Rheumatoid arthritis: Comment: +DIYA RF, CCP negative treatment 1999- 2009 with Enbrel and Plaquenil methotrexate started ~ 2011 but patient stopped it - flare HCQ restarted 05/2024 effective Code(s): M06.9 - Rheumatoid arthritis, unspecified Category: Medical Qualifiers: Rheumatoid arthritis location: unspecified site Rheumatoid factor presence: with rheumatoid factor Qualified Code(s): M05.9 - Rheumatoid arthritis with rheumatoid factor, unspecified (3) Chronic restrictive lung disease: Code(s): J98.4 - Other disorders of lung Category: Medical (4) JENNIFER (obstructive sleep apnea): Code(s): G47.33 - Obstructive sleep apnea (adult) (pediatric) Category: Medical (5) Bronchitis: Code(s): J40 - Bronchitis, not specified as acute or chronic Category: Medical Plan ALCON as needed low sodium diet consider OFEV if progressive fibrosis, fibrosis stable Plaquenil CT chest 12/2024 F/U 4-6 months or sooner if any worsening symptoms Orders: Orders CT chest wo IV con Today J84.9 - Interstitial pulmonary disease, unspecified Coding Level of Care Code Est Pt Level 4 (27855) Diagnoses ILD (interstitial lung disease) J84.9 Rheumatoid arthritis with positive rheumatoid factor, involving unspecified site M05.9 Rheumatoid arthritis location: unspecified site Rheumatoid factor presence: with rheumatoid factor Chronic restrictive lung disease J98.4 JENNIFER (obstructive sleep apnea) G47.33 Bronchitis J40 Time Spent (min) 17
[2024-11-13 10:10] VITALS: BP 142/88; PULSE 70; O2SAT 100; BMI 43.8
--- OUTSIDE RECORDS SUMMARY | 2024-11-13 11:10 | XMS_ITS ---
Author Organization [facility] Address [address] [place] [address] Care Team Providers Care Lab Technologist Name Role Phone SAJAN ARTEAGA Unavailable [phone] Encounters Encounter Location Date Provider Diagnosis [facility] [address] [place] [address] 12/17/2023 SAJAN ARTEAGA PLAN OF TREATMENT No Information Progress Notes * Romelia DARDENDOB:[birth year] (58 yo F)Acc No.[id number]:12/17/2023 Patient:??Romelia DARDEN :1965?Age:58 Y?Sex:Fe male Address:[address] [place] [id number] * true * Date:??
--- OUTSIDE RECORDS SUMMARY | 2024-11-13 11:10 | XMS_ITS ---
Author Organization [facility] Address [address] [place] [address] Care Team Providers Care Manufacturing Engineering Professor Name Role Phone SAJAN ARTEAGA Unavailable [phone] [employer] MEDRANO Unavailable [phone] Encounters Encounter Location Date Provider Diagnosis [address] [place] [id number] 12/31/2023 AMERICO MEDRANO PLAN OF TREATMENT No Information Progress Notes * Romelia DARDENDOB:[birth year] (58 yo F)Acc No.[id number]:12/31/2023 Patient:??Romelia DARDEN :1965?Age:58 Y?Sex:Fe male Address:[address] [place] [id number] * true * Date:??
--- OUTSIDE RECORDS SUMMARY | 2024-11-13 11:10 | XMS_ITS ---
Author Organization [facility] Address [address] [place] [address] Care Team Providers Care Managing Principal Name Role Phone SAJAN ARTEAGA Unavailable [phone] Encounters Encounter Location Date Provider Diagnosis [facility] [address] [address] 12/16/2023 SAJAN ARTEAGA PLAN OF TREATMENT No Information Progress Notes * Romelia DARDENDOB:[birth year] (58 yo F)Acc No.[id number]:12/16/2023 Patient:??Romelia DARDEN :1965?Age:58 Y?Sex:Fe male Address:[address] [place] [id number] * true * Date:??
--- OUTSIDE RECORDS SUMMARY | 2024-11-13 11:11 | XMS_ITS | Patient Health Record ---
Author Organization [facility] Address [address] [place] [address] Care Team Providers Care Tank Cooper Name Role Phone Tawnya Dawson Primary Care Provider Gopal Singh Unavailable [phone] Allergies Allergen (clinical drug ingredient) Drug/Non Drug Allergy documented on EMR Reaction Allergy Type Onset Date Status contrast dye (uncoded) Hives, vomiting Allergy Active clindamycin Clindamycin Hives Drug Allergy Act eva Penicillin Hives, diarrhea Drug Allergy Active Reason For Referral No Information Medications Medication SIG (Take, Route, Frequency, Duration) Notes Start Date End Date Status ASO Ankle/Foot Stablizing AFO As directed Wear Daily for as needed 03/17/2023 Active Physical Therapy . . . 2-3x/week for 3- 4 weeks Active Benadryl Active Albuterol Active Plaquenil Active Walking Boot/Pneumatic As directed Wear Daily for Until further notice 01/27/2023 Active Meclizine HCl 12.5 MG 1 tablet as needed Orally every 12 hrs Active Compression Stockings 20-30mm Hg 1 pair wear daily for 30 days Active Vitamin C Active Excedrin Migraine Ac tive Social History Tobacco Use: Social History Observation Description Date Details (start date - stop date) Never Smoker NA - NA Tobacco Use/Smoking Question Answer Notes Are you a: nonsmoker Additional Findings: Tobacco Non-User Current no n-smoker Alcohol Screen Question Answer Notes Did you have a drink contain ing alcohol in the past year? Yes How often did you have a dri nk containing alcohol in the past year? Monthly or less (1 point) Points 1 Interpretation Negative Tobacco use other than smoking: Question Answer Notes Are you an other tobacco user? No Problems Problem Type SNOMED Code ICD Code Onset Dates Problem Status W/U Status Risk Notes Problem Achilles bursitis (361449105) Achilles tendinitis, left leg (M76.62) Active confirmed Unresolved Problem Peroneal tendinitis (06873327) Peroneal tendinitis, left leg (M76.72) Active confirmed Unresolved Plan Of Treatment Pending Test Test Name Order Date X ray : Ankle, left 3V 10/19/2022 X ray : Ankle, right 3V 10/19/2022 Insurance Providers Payer Name Payer Address Payer Phone Subscriber Number Group Number Insured Name Patient Relationship to Insured Coverage Start Date Coverage End Date [facility] [address] [place] [address] [id number] Romelia Rincon Self - patient is the insured Medical (General) History Medical History History ICD Code Arthritis - Rheumatoid Back,Hip,and Knee pain Cataracts Chicken pox covid-19 Depression Gall bladder problems Headaches/Migraines Hearing loss Lung disease Psoriasis/eczema Surgical History Surgery Date(Month/Year) Laparoscopy 1991 cholecystectomy 1992 endometrial ablation oopherectomy 2011
--- OUTSIDE RECORDS SUMMARY | 2024-11-13 11:11 | XMS_ITS | Patient Health Record ---
Author Organization [facility] Address [address] [place] [address] Care Team Providers Care Senior Wealth Advisor Name Role Phone SAJAN ARTEAGA Unavailable [phone] AMERICO MEDRANO Unavailable [phone] ALLERGIES Allergen (clinical drug ingredient) Drug/Non Drug Allergy documented on EMR Reaction Allergy Type Onset Date Status clindamycin Clindamycin Unknown Drug Allergy Act eva Penicillin Unknown Drug Allergy Active RESULTS Component Value Reference Range Notes COMPREHENSIVE METABOLIC PANE L Reviewed date:12/02/2023 07:38:48 AM Interpretation: Performing Lab: Notes/Report: Note Original Orderi ng Provider: AMERICO MEDRANO FOOD SAFETY MANAGER GLUCOSE 101 70-100 mg/dL Reference range applicable to fasting specimens only BUN 16 5-25 mg/dL CREAT 0.88 0.5-1.1 mg/dL GLOMERULAR FILTRATION RATE 77 >60 This eGFR result was calculated using the CKD-EPI 2020 Creatinine Equation SODIUM 137 135-145 mEq/L POTASSIUM 4.2 3.5-5.5 mmol/L CHLORIDE 106 96-110 mmol/L CO2 28 21-32 mmol/L ANION GAP 3 3-11 CALCIUM 9.9 8.5-10.5 mg/dL TOTAL PROTEIN 7.7 6.0-8.0 G/dL ALBUMIN 3.4 3.2-5.0 G/dL BILI,TOTAL 0.4 0.0-1.4 mg/dL SGOT 19 10-42 U/L SGPT UNABLE TO REPORT 10-60 U/L Due to a nationwide backorder of ALT reagent for our analyzers we are unable to report ALT results at this time. All other tests in the Liver Profile are available for monitoring liver function. If ALT results are urgently needed, please call the Chemistry department at [phone]. Urgent requests can be sent to [facility] for testing. ALK PHOS 47 42-121 U/L CBC WITH AUTO DIFF Reviewed date:12/01/2023 11:56:11 AM Interpretation: Performing Lab: Notes/Report: WBC 8.1 4.8-10.8 x10-3/uL RBC 4.3 3.8-4.8 x10-6/uL HEMOGLOBIN 12.4 11.5-16.0 g/dL HEMATOCRIT 38.1 35-47 % MCV 87.8 79-98 fL MCH 28.6 27-32 pg MCHC 32.5 32-37 g/dL RDW 13.2 11-15 % PLT COUNT 309 130-400 x10-3/uL MEAN PLATELET VOLUME 10.3 7-11 fL NRBC % AUTO 0.0 <1 % NEUT % 53.7 LYMPH % 33.9 MONO % 8.1 EOS % 3.4 BASO % 0.5 IMMATURE GRANULOCYTES % 0.4 NRBC # AUTO 0.00 <0.1 x10-3/uL ABSOLUTE NEUT 4.33 1.5-7.0 x10-3/uL LYMPH # 2.73 1-5.0 x10-3/uL MONO # 0.65 0.2-1.0 x10-3/uL EOS # 0.27 0-0.5 x10-3/uL BASO # 0.04 0-0.2 x10-3/uL IMMATURE GRANULOCYTES # 0.03 0-0.03 x10-3/uL UA WITH CULTURE IF INDICATED Reviewed date:12/01/2023 11:56:11 AM Interpretation: Performing Lab: Notes/Report: GLUCOSE, (UA) NEGATIVE NEGATIVE mg/dL BILIRUBIN, URINE NEGATIVE NEGATIVE KETONE, URINE NEGATIVE NEGATIVE mg/dL SPECIFIC GRAVITY, URINE 1.026 1.003-1.030 BLOOD, URINE NEGATIVE NEGATIVE PH, URINE 5.5 5.0-8.0 PROTEIN, URINE NEGATIVE <= TRACE mg/dl UROBILINOGEN, URINE 1.0 0.2-1.0 E.U./dL NITRITE, URINE NEGATIVE NEGATIVE LEUKOCYTE ESTERASE, URINE NEGATIVE NEGATIVE AMYLASE Reviewed date:12/02/2023 07:38:48 AM Interpretation: Performing Lab: Notes/Report: AMYLASE 78 25-115 U/L LIPASE Reviewed date:12/02/2023 07:38:48 AM Interpretation: Performing Lab: Notes/Report: LIPASE 39 13-75 U/L H PYLORI BREATH TEST Reviewed date:12/01/2023 11:56:11 AM Interpretation: Performing Lab: Notes/Report: Note Original Ordering Provider: AMERICO MEDRANO NP [employer], a member of [address] [address] [employer] Do Main MD H PYLORI BREATH TEST NEGATIVE NEGATIVE Note Original Ordering Provider: AMERICO MEDRANO NP [employer], a member of [address] [address] [employer] Do Main MD CT Abdomen Pelvis WO Cont Reviewed date:12/29/2023 05:27:06 PM Interpretation: Performing Lab: Notes/Report: Original Ordering Provider: AMERICO MEDRANO NP [facility] REASON FOR REFERRAL Reason Pt needing GI referr al after urgent office visit due to generalized abdominal pain. Diagnosis 1 Generalized abdomina l pain (R10.84) Referral Organization [place] [address] Referring Provider First Name AMERICO Referring Provider Last Name MITCHELL Referring Provider Speciality Internal M edicine Referred Provider Sameer Jones Referred Provider Specialty Gastroentero logy General Notes faxed over referral with office notes and demographics to [phone], ENZO ROPER 12/02/2023 03:53:48 PM > refaxed to [phone] Clinical Notes Day Alonso 12/01 10:02:09 AM >, Day Alonso 01/06/2024 10:58:18 AM >, called GI to get an update and Pt is scheduled for consult March 30 at 9:00 AM. Referral Priority Routine MEDICATIONS Medication SIG (Take, Route, Frequency, Duration) Notes Start Date End Date Status Wegovy 1.7 MG/0.75ML 1.7mg Subcutaneous weekly for 30 days Active Meclizine HCl 12.5 MG 1 tablet as needed Orally three times daily for 30 days 02/25/2022 Active Albuterol Sulfate HFA 108 (90 Base) MCG/ACT 1 puff as needed Inhalation every 4 hrs Active Benadryl Allergy 25 MG 1 tablet at bedti me as needed Orally Once a day Active SOCIAL HISTORY Tobacco Use: Social History Observation Description Date Details (start date - stop date) Never Smoker NA - NA Sex Assigned At : Social History Observation Description Sex Assigned At Unknown Tobacco Use/Smoking Question Answer Notes Are you a nonsmoker PROBLEMS Problem Type ICD Code Onset Dates Problem Status W/U Status Risk SNOMED Code Notes Problem Morbid (severe) obesity due to excess calories (E66.01) Active confirmed 045340037 Problem Dysuria (R30.0) Active confirmed Dysuri a (75235433) Problem Encounter for general adult medical examination without abnormal findings (Z00.00) Active confirmed 299629610 Problem Back pain, unspecified back location, unspecified back pain laterality, unspecified chronicity (M54.9) Active confirmed Backache (390926591) Problem Hyperlipidemia, unspecified hyperlipidemia type (E78.5) Active confirmed 84633289 Problem Vitamin D deficiency (E55.9) Active confirmed Vitamin D deficiency (29064837) Problem Pre-diabetes (R73.03) Active confirmed Prediabetes (322134628) Problem Rheumatoid arthritis, involving unspecified site, unspecified whether rheumatoid factor present (M06.9) Active confirmed 10912300 Problem Body mass index [BMI] 40.0-44.9, adult (Z68.41) Active confirmed 956893582 Problem Allergy, sequela (T78.40XS) Active confirmed Allergy (786482413) Problem Interstitial lung disease (J84.9) Active confirmed Interstitial lung disease (416631086) VITAL SIGNS Heart Rate 87 /min 12/01/2023 Oximetry 99 % 12/01/2023 Blood pressure diastolic 82 mm Hg 12/01/2023 Height 66 in 12/01/2023 Blood pressure systolic 104 mm Hg 12/01/2023 Weight 277 lbs 12/01/2023 BMI 44.7 kg/m2 12/01/2023 Encounters Encounter Location Date Provider Diagnosis [facility] [address] [address] 12/02/2023 AMERICO MEDRANO Hyperlipidemia, unspecified hyperlipidemia type E78.5 ; Morbid (severe) obesity due to excess calories E66.01 ; Body mass index [BMI] 40.0-44.9, adult Z68.41 ; Interstitial lung disease J84.9 ; Benign paroxysmal positional vertigo, unspecified laterality H81.10 ; Rheumatoid arthritis, involving unspecified site, unspecified whether rheumatoid factor present M06.9 ; Pre-diabetes R73.03 ; Vitamin D deficiency E55.9 and Back pain, unspecified back location, unspecified back pain laterality, unspecified chronicity M54.[address] [facility] [address] [facility] [address] [place] [address] 12/01/2023 AMERICO MEDRANO Generalized abdomina l pain R10.84 and Encounter for general adult medical examination without abnormal findings Z00.[address] [facility] [address] [facility] [address] [facility] [address] [place] [address] 12/16/2023 [facility] [address] [place] [address] 12/17/2023 [facility] [address] [facility] [address] [place] [address] 12/31/2023 AMERICO MEDRANO ASSESSMENTS Encounter Date Diagnosis Assessment Notes Treatment Notes Treatment Clinical Notes Section Notes 12/01/2023 Generalized abdominal pain (ICD-10 - R10.84) Will check some basic labs enzymes Will get an abdomen CT and pelvis, with oral contrast She will reports an IV contrast allergy Will refer to gastroenterology Instructed to hold GLP in the meantime Of note, some information is being carried forward from prior records for informational purposes only and is being cited so that efficiency, safety and quality of the patient's care is not compromised This note was prepared using voice recognition software and direct typing Please excuse inadvertent hvac refrigeration technician or typing errors, or uncorrected word substitutions Although every attempt has been made by the provider to proofread this document, occasional misspellings and typographical errors may still be present Due to the previous pandemic, and the use of personal protective equipment (PPE) This may decrease voice recognition accuracy Inadvertent hvac refrigeration technician errors may occur 12/02/2023 Hyperlipidemia, unspecified hyperlipidemia type (ICD-10 - E78.5) Plan to start compounding program today 0.25 of semaglutide We discussed Mahamed moving forward Total time spent today was 30 minutes of which greater than 50% was spent on coordinating and counseling Patient has been found to be obese with a BMI of (30). Patient has class (1) obesity. We are a board certified obesity and weight management practice Patient has trialed behavioral modification, dietary restrictions and exercise for a minimum of 6 months The most recent [place] [employer] of clinical endocrinologists and [place] [employer]in[employer] guidelines recommend patients who have overweight BMI or obesity BMI, who also have metabolic syndrome, prediabetes, HLD, and other comorbidities or at risk of developing type 2 diabetes should aim for a weight loss goal of at least 10% of the baseline body weight Patient counseled regarding effects of GLP/GIP-1 agonists, and other FDA approved wgt loss meds with regards to a multifactorial approach of weight loss as mentioned above and not solely appetite suppression. We have discussed the mechanism of GLP-1's/GIP, dual incretins, appetitite suppressants I think this would be fantastic option for her given her metabolic workup and body composition We have discussed the risks and benefits and side effects including/and not limited to Sarcopenia, intestinal obstruction, constipation, nausea, lethargy, headache Discussed importance of protein consumption for muscle maintenance as well as strength and resistance training ,probiotics, B12 complex biotin , iron and other nutrients, To help avoid telogen effluvium We have discussed the lifelong requirement of nutritional supplementation And adherence to an exercise regimen as well as importance of follow-up The patient understands and agrees There is no history of medullary thyroid cancer or multiple endocrine neoplasia There is also no history of cardiovascular disease, hypertension, palpitations, or arrhythmias In the setting of potential stimulant/amphetami ne use such as phentermine We have also discussed risks and benefits, and the use of compounded medications to help offset the national shortages as well as financial implications vs trade name drugs Patient was reassured and welcomed to the practice. We discussed that we stress a hollistic medical approach with emphasis on lifestyle modification. Patient was informed that a healthy lifestyle with exercise and good eating habits can help reduce his risk of medical complications. He is explained that obesity increases his risk of diabetes, cardiovascular disease, or organ damage. We spent a lot of time discussing the relationship between food, exercise, sleep, mental health and obesity. Patient was counseled on the importance EATING local, organic food when possible. Patient was educated on clean 15 and dirty dozen. I provided information about reading books called The Food Rules by Ti Venegas and Eat Fat Get Lean by Dr Zaid Freeman. Self education is important in the journey for weight management. Patient was offered diagnostic testing. We want to measure visceral adiposity, advanced body composition, adverse lipids, fatty acid balance, risk for heart disease and atherosclerosis, markers of inflammation and genetic susceptibility. Patient was counseled on weight management and was advised to lose weight using A. Meal Replacement Products We discussed the lifelong requirement of nutritional supplementation and adherence to an exercise regimen as well as importance of dietary follow-up Patient was educated on the replacement products called optifast. This is a good way of taking fixed amount of calories. It has been shown in studies to be ineffective weight management tool. We also recommend maintaining adequate protein intake and muscle composition, 1.5mg/kg This however has to be coupled with lifestyle intervention as well as laboratory data and EKG monitoring. It is impossible to know how a person will tolerate complete meal replacement. The side effects of meal replacement and weight loss could include syncopal attacks, dizziness, gallstones, potential cholecystectomy, possible heart attack and even . The benefits of meal replacement would be potential weight loss but no guarantees can be made. Meal replacement products are not covered by insurance. Once the patient has bought these products we cannot return them B. Lifestyle management which includes several strategies as below 1. Eat a low carbohydrate good fat good protein diet. Eliminate refined carbohydrates from the diet. Continue blood sugar and sugared beverages. Eat local organic when possible. Cook your own meals. Read food labels. None about healthy snacks. Portion control and food with low glycemic index 2. Exercise regularly. Try to get at least 6000 steps a day. Use a predominant to track activity level. Consider using apps like Tribold, [employer], lose it, stick as needed for self-monitoring and weight management. Consider group exercises. Consider hiring a personal consultant. Regular exercise is navarro to sustainable health and prevents as a buffer against weight regain 3. Sleep is most important for healing. Tried to sleep at least 8 hours a night. A good quality sleep needs a sleep ritual with ideal room temperature of around 68. It might help to take a shower and have no electronics in the room and sleep in a very dark room without artificial light. Start her sleep routine and get up early in the morning and go to bed on time 4. Make a social connection. Surround yourself with positive people with positive energy. Connect with friends and family. 5. Get into the habit of meditating and mindfulness while doing everything. 6. Go outside and connect with nature. C. Prescription medications Patient was educated on the use of prescription medications for medical weight loss. This is a growing list and includes phentermine, Topamax,Qsymia, contrave, belviq and saxenda. All prescription medications could have side effects including but not limited to kidney stones, seizure disorder cardiac arrhythmias heart attack pancreatitis etc. etc.. Patient was encouraged to read the prescription insert and have coaching with their pharmacist and make an informed decision about taking medication and know that these medications are being prescribed with good intentions and we do not know how a patient would react to her medication. Sudden medications are FDA approved for weight loss and there is also off label use depending on patient's inability to afford medications in an attempt to lose weight D. Behavioral counseling was done to establish a relationship between food and an mood. Patient was provided information about local counseling and psychiatry and Dr Thomson at [facility]. We would like to cover regular topics and build on low glycemic eating exercise mindful eating, using yoga and meditation along with deep breathing and connecting with friends and family. E. MASS PAT reviewed, Patient's current medications were reviewed and opinion was given on medication that can cause weight gain and can be substituted F. Patient was assessed for risk with obesity including and not limiting to atherosclerosis heart disease stroke kidney disease, restrictive lung disease, irritable bowel syndrome and overall mortality. Risk of developing prediabetes diabetes and metabolic syndrome was discussed G. Therapeutic plan: We have decided to make therapeutic plan which would include choosing wisely on calories restricting portion getting active, tracking weight, getting good quality sleep and working on time management H. Patient will follow up in (4) weeks for weight management Of note, some information is being carried forward from prior records for informational purposes only and is being cited so that efficiency, safety and quality of the patient's care is not compromised This note was prepared using voice recognition software and direct typing Please excuse inadvertent hvac refrigeration technician or typing errors, or uncorrected word substitutions Although every attempt has been made by the provider to proofread this document, occasional misspellings and typographical errors may still be present Due to the previous pandemic, and the use of personal protective equipment (PPE) This may decrease voice recognition accuracy Inadvertent hvac refrigeration technician errors may occur 12/01/2023 Encounter for general adult medical examination without abnormal findings (ICD-10 - Z00.00) Will check some basic labs enzymes Will get an abdomen CT and pelvis, with oral contrast She will reports an IV contrast allergy Will refer to gastroenterology Instructed to hold GLP in the meantime Of note, some information is being carried forward from prior records for informational purposes only and is being cited so that efficiency, safety and quality of the patient's care is not compromised This note was prepared using voice recognition software and direct typing Please excuse inadvertent hvac refrigeration technician or typing errors, or uncorrected word substitutions Although every attempt has been made by the provider to proofread this document, occasional misspellings and typographical errors may still be present Due to the previous pandemic, and the use of personal protective equipment (PPE) This may decrease voice recognition accuracy Inadvertent hvac refrigeration technician errors may occur 12/02/2023 Morbid (severe) obesity due to excess calories (ICD-10 - E66.01) Plan to start compounding program today 0.25 of semaglutide We discussed Mahamed moving forward Total time spent today was 30 minutes of which greater than 50% was spent on coordinating and counseling Patient has been found to be obese with a BMI of (30). Patient has class (1) obesity. We are a board certified obesity and weight management practice Patient has trialed behavioral modification, dietary restrictions and exercise for a minimum of 6 months The most recent [place] [employer] of clinical endocrinologists and [place] [employer]in[employer] guidelines recommend patients who have overweight BMI or obesity BMI, who also have metabolic syndrome, prediabetes, HLD, and other comorbidities or at risk of developing type 2 diabetes should aim for a weight loss goal of at least 10% of the baseline body weight Patient counseled regarding effects of GLP/GIP-1 agonists, and other FDA approved wgt loss meds with regards to a multifactorial approach of weight loss as mentioned above and not solely appetite suppression. We have discussed the mechanism of GLP-1's/GIP, dual incretins, appetitite suppressants I think this would be fantastic option for her given her metabolic workup and body composition We have discussed the risks and benefits and side effects including/and not limited to Sarcopenia, intestinal obstruction, constipation, nausea, lethargy, headache Discussed importance of protein consumption for muscle maintenance as well as strength and resistance training ,probiotics, B12 complex biotin , iron and other nutrients, To help avoid telogen effluvium We have discussed the lifelong requirement of nutritional supplementation And adherence to an exercise regimen as well as importance of follow-up The patient understands and agrees There is no history of medullary thyroid cancer or multiple endocrine neoplasia There is also no history of cardiovascular disease, hypertension, palpitations, or arrhythmias In the setting of potential stimulant/amphetami ne use such as phentermine We have also discussed risks and benefits, and the use of compounded medications to help offset the national shortages as well as financial implications vs trade name drugs Patient was reassured and welcomed to the practice. We discussed that we stress a hollistic medical approach with emphasis on lifestyle modification. Patient was informed that a healthy lifestyle with exercise and good eating habits can help reduce his risk of medical complications. He is explained that obesity increases his risk of diabetes, cardiovascular disease, or organ damage. We spent a lot of time discussing the relationship between food, exercise, sleep, mental health and obesity. Patient was counseled on the importance EATING local, organic food when possible. Patient was educated on clean 15 and dirty dozen. I provided information about reading books called The Food Rules by Ti Venegas and Eat Fat Get Lean by Dr Zaid Freeman. Self education is important in the journey for weight management. Patient was offered diagnostic testing. We want to measure visceral adiposity, advanced body composition, adverse lipids, fatty acid balance, risk for heart disease and atherosclerosis, markers of inflammation and genetic susceptibility. Patient was counseled on weight management and was advised to lose weight using A. Meal Replacement Products We discussed the lifelong requirement of nutritional supplementation and adherence to an exercise regimen as well as importance of dietary follow-up Patient was educated on the replacement products called optifast. This is a good way of taking fixed amount of calories. It has been shown in studies to be ineffective weight management tool. We also recommend maintaining adequate protein intake and muscle composition, 1.5mg/kg This however has to be coupled with lifestyle intervention as well as laboratory data and EKG monitoring. It is impossible to know how a person will tolerate complete meal replacement. The side effects of meal replacement and weight loss could include syncopal attacks, dizziness, gallstones, potential cholecystectomy, possible heart attack and even . The benefits of meal replacement would be potential weight loss but no guarantees can be made. Meal replacement products are not covered by insurance. Once the patient has bought these products we cannot return them B. Lifestyle management which includes several strategies as below 1. Eat a low carbohydrate good fat good protein diet. Eliminate refined carbohydrates from the diet. Continue blood sugar and sugared beverages. Eat local organic when possible. Cook your own meals. Read food labels. None about healthy snacks. Portion control and food with low glycemic index 2. Exercise regularly. Try to get at least 6000 steps a day. Use a predominant to track activity level. Consider using apps like [employer]old, [employer], lose it, stick as needed for self-monitoring and weight management. Consider group exercises. Consider hiring a personal consultant. Regular exercise is navarro to sustainable health and prevents as a buffer against weight regain 3. Sleep is most important for healing. Tried to sleep at least 8 hours a night. A good quality sleep needs a sleep ritual with ideal room temperature of around 68. It might help to take a shower and have no electronics in the room and sleep in a very dark room without artificial light. Start her sleep routine and get up early in the morning and go to bed on time 4. Make a social connection. Surround yourself with positive people with positive energy. Connect with friends and family. 5. Get into the habit of meditating and mindfulness while doing everything. 6. Go outside and connect with nature. C. Prescription medications Patient was educated on the use of prescription medications for medical weight loss. This is a growing list and includes phentermine, Topamax,Qsymia, contrave, belviq and saxenda. All prescription medications could have side effects including but not limited to kidney stones, seizure disorder cardiac arrhythmias heart attack pancreatitis etc. etc.. Patient was encouraged to read the prescription insert and have coaching with their pharmacist and make an informed decision about taking medication and know that these medications are being prescribed with good intentions and we do not know how a patient would react to her medication. Sudden medications are FDA approved for weight loss and there is also off label use depending on patient's inability to afford medications in an attempt to lose weight D. Behavioral counseling was done to establish a relationship between food and an mood. Patient was provided information about local counseling and psychiatry and Dr Thomson at [facility]. We would like to cover regular topics and build on low glycemic eating exercise mindful eating, using yoga and meditation along with deep breathing and connecting with friends and family. E. MASS PAT reviewed, Patient's current medications were reviewed and opinion was given on medication that can cause weight gain and can be substituted F. Patient was assessed for risk with obesity including and not limiting to atherosclerosis heart disease stroke kidney disease, restrictive lung disease, irritable bowel syndrome and overall mortality. Risk of developing prediabetes diabetes and metabolic syndrome was discussed G. Therapeutic plan: We have decided to make therapeutic plan which would include choosing wisely on calories restricting portion getting active, tracking weight, getting good quality sleep and working on time management H. Patient will follow up in (4) weeks for weight management Of note, some information is being carried forward from prior records for informational purposes only and is being cited so that efficiency, safety and quality of the patient's care is not compromised This note was prepared using voice recognition software and direct typing Please excuse inadvertent hvac refrigeration technician or typing errors, or uncorrected word substitutions Although every attempt has been made by the provider to proofread this document, occasional misspellings and typographical errors may still be present Due to the previous pandemic, and the use of personal protective equipment (PPE) This may decrease voice recognition accuracy Inadvertent hvac refrigeration technician errors may occur 12/02/2023 Body mass index [BMI] 40.0-44.9, adult (ICD-10 - Z68.41) Plan to start compounding program today 0.25 of semaglutide We discussed Mahamed moving forward Total time spent today was 30 minutes of which greater than 50% was spent on coordinating and counseling Patient has been found to be obese with a BMI of (30). Patient has class (1) obesity. We are a board certified obesity and weight management practice Patient has trialed behavioral modification, dietary restrictions and exercise for a minimum of 6 months The most recent [place] [employer] endocrinologists and [place] [employer] guidelines recommend patients who have overweight BMI or obesity BMI, who also have metabolic syndrome, prediabetes, HLD, and other comorbidities or at risk of developing type 2 diabetes should aim for a weight loss goal of at least 10% of the baseline body weight Patient counseled regarding effects of GLP/GIP-1 agonists, and other FDA approved wgt loss meds with regards to a multifactorial approach of weight loss as mentioned above and not solely appetite suppression. We have discussed the mechanism of GLP-1's/GIP, dual incretins, appetitite suppressants I think this would be fantastic option for her given her metabolic workup and body composition We have discussed the risks and benefits and side effects including/and not limited to Sarcopenia, intestinal obstruction, constipation, nausea, lethargy, headache Discussed importance of protein consumption for muscle maintenance as well as strength and resistance training ,probiotics, B12 complex biotin , iron and other nutrients, To help avoid telogen effluvium We have discussed the lifelong requirement of nutritional supplementation And adherence to an exercise regimen as well as importance of follow-up The patient understands and agrees There is no history of medullary thyroid cancer or multiple endocrine neoplasia There is also no history of cardiovascular disease, hypertension, palpitations, or arrhythmias In the setting of potential stimulant/amphetami ne use such as phentermine We have also discussed risks and benefits, and the use of compounded medications to help offset the national shortages as well as financial implications vs trade name drugs Patient was reassured and welcomed to the practice. We discussed that we stress a hollistic medical approach with emphasis on lifestyle modification. Patient was informed that a healthy lifestyle with exercise and good eating habits can help reduce his risk of medical complications. He is explained that obesity increases his risk of diabetes, cardiovascular disease, or organ damage. We spent a lot of time discussing the relationship between food, exercise, sleep, mental health and obesity. Patient was counseled on the importance EATING local, organic food when possible. Patient was educated on clean 15 and dirty dozen. I provided information about reading books called The Food Rules by Ti Venegas and Eat Fat Get Lean by Dr Zaid Freeman. Self education is important in the journey for weight management. Patient was offered diagnostic testing. We want to measure visceral adiposity, advanced body composition, adverse lipids, fatty acid balance, risk for heart disease and atherosclerosis, markers of inflammation and genetic susceptibility. Patient was counseled on weight management and was advised to lose weight using A. Meal Replacement Products We discussed the lifelong requirement of nutritional supplementation and adherence to an exercise regimen as well as importance of dietary follow-up Patient was educated on the replacement products called optifast. This is a good way of taking fixed amount of calories. It has been shown in studies to be ineffective weight management tool. We also recommend maintaining adequate protein intake and muscle composition, 1.5mg/kg This however has to be coupled with lifestyle intervention as well as laboratory data and EKG monitoring. It is impossible to know how a person will tolerate complete meal replacement. The side effects of meal replacement and weight loss could include syncopal attacks, dizziness, gallstones, potential cholecystectomy, possible heart attack and even . The benefits of meal replacement would be potential weight loss but no guarantees can be made. Meal replacement products are not covered by insurance. Once the patient has bought these products we cannot return them B. Lifestyle management which includes several strategies as below 1. Eat a low carbohydrate good fat good protein diet. Eliminate refined carbohydrates from the diet. Continue blood sugar and sugared beverages. Eat local organic when possible. Cook your own meals. Read food labels. None about healthy snacks. Portion control and food with low glycemic index 2. Exercise regularly. Try to get at least 6000 steps a day. Use a predominant to track activity level. Consider using apps like Tribold, [employer], lose it, stick as needed for self-monitoring and weight management. Consider group exercises. Consider hiring a personal consultant. Regular exercise is navarro to sustainable health and prevents as a buffer against weight regain 3. Sleep is most important for healing. Tried to sleep at least 8 hours a night. A good quality sleep needs a sleep ritual with ideal room temperature of around 68. It might help to take a shower and have no electronics in the room and sleep in a very dark room without artificial light. Start her sleep routine and get up early in the morning and go to bed on time 4. Make a social connection. Surround yourself with positive people with positive energy. Connect with friends and family. 5. Get into the habit of meditating and mindfulness while doing everything. 6. Go outside and connect with nature. C. Prescription medications Patient was educated on the use of prescription medications for medical weight loss. This is a growing list and includes phentermine, Topamax,Qsymia, contrave, belviq and saxenda. All prescription medications could have side effects including but not limited to kidney stones, seizure disorder cardiac arrhythmias heart attack pancreatitis etc. etc.. Patient was encouraged to read the prescription insert and have coaching with their pharmacist and make an informed decision about taking medication and know that these medications are being prescribed with good intentions and we do not know how a patient would react to her medication. Sudden medications are FDA approved for weight loss and there is also off label use depending on patient's inability to afford medications in an attempt to lose weight D. Behavioral counseling was done to establish a relationship between food and an mood. Patient was provided information about local counseling and psychiatry and Dr Thomson at [email or web address]. We would like to cover regular topics and build on low glycemic eating exercise mindful eating, using yoga and meditation along with deep breathing and connecting with friends and family. E. MASS PAT reviewed, Patient's current medications were reviewed and opinion was given on medication that can cause weight gain and can be substituted F. Patient was assessed for risk with obesity including and not limiting to atherosclerosis heart disease stroke kidney disease, restrictive lung disease, irritable bowel syndrome and overall mortality. Risk of developing prediabetes diabetes and metabolic syndrome was discussed G. Therapeutic plan: We have decided to make therapeutic plan which would include choosing wisely on calories restricting portion getting active, tracking weight, getting good quality sleep and working on time management H. Patient will follow up in (4) weeks for weight management Of note, some information is being carried forward from prior records for informational purposes only and is being cited so that efficiency, safety and quality of the patient's care is not compromised This note was prepared using voice recognition software and direct typing Please excuse inadvertent hvac refrigeration technician or typing errors, or uncorrected word substitutions Although every attempt has been made by the provider to proofread this document, occasional misspellings and typographical errors may still be present Due to the previous pandemic, and the use of personal protective equipment (PPE) This may decrease voice recognition accuracy Inadvertent hvac refrigeration technician errors may occur 12/02/2023 Interstitial lung disease (ICD-10 - J84.9) Plan to start compounding program today 0.25 of semaglutide We discussed Mahamed moving forward Total time spent today was 30 minutes of which greater than 50% was spent on coordinating and counseling Patient has been found to be obese with a BMI of (30). Patient has class (1) obesity. We are a board certified obesity and weight management practice Patient has trialed behavioral modification, dietary restrictions and exercise for a minimum of 6 months The most recent [place] [employer] clinical endocrinologists and [place] [employer] guidelines recommend patients who have overweight BMI or obesity BMI, who also have metabolic syndrome, prediabetes, HLD, and other comorbidities or at risk of developing type 2 diabetes should aim for a weight loss goal of at least 10% of the baseline body weight Patient counseled regarding effects of GLP/GIP-1 agonists, and other FDA approved wgt loss meds with regards to a multifactorial approach of weight loss as mentioned above and not solely appetite suppression. We have discussed the mechanism of GLP-1's/GIP, dual incretins, appetitite suppressants I think this would be fantastic option for her given her metabolic workup and body composition We have discussed the risks and benefits and side effects including/and not limited to Sarcopenia, intestinal obstruction, constipation, nausea, lethargy, headache Discussed importance of protein consumption for muscle maintenance as well as strength and resistance training ,probiotics, B12 complex biotin , iron and other nutrients, To help avoid telogen effluvium We have discussed the lifelong requirement of nutritional supplementation And adherence to an exercise regimen as well as importance of follow-up The patient understands and agrees There is no history of medullary thyroid cancer or multiple endocrine neoplasia There is also no history of cardiovascular disease, hypertension, palpitations, or arrhythmias In the setting of potential stimulant/amphetami ne use such as phentermine We have also discussed risks and benefits, and the use of compounded medications to help offset the national shortages as well as financial implications vs trade name drugs Patient was reassured and welcomed to the practice. We discussed that we stress a hollistic medical approach with emphasis on lifestyle modification. Patient was informed that a healthy lifestyle with exercise and good eating habits can help reduce his risk of medical complications. He is explained that obesity increases his risk of diabetes, cardiovascular disease, or organ damage. We spent a lot of time discussing the relationship between food, exercise, sleep, mental health and obesity. Patient was counseled on the importance EATING local, organic food when possible. Patient was educated on clean 15 and dirty dozen. I provided information about reading books called The Food Rules by Ti Venegas and Eat Fat Get Lean by Dr Zaid Freeman. Self education is important in the journey for weight management. Patient was offered diagnostic testing. We want to measure visceral adiposity, advanced body composition, adverse lipids, fatty acid balance, risk for heart disease and atherosclerosis, markers of inflammation and genetic susceptibility. Patient was counseled on weight management and was advised to lose weight using A. Meal Replacement Products We discussed the lifelong requirement of nutritional supplementation and adherence to an exercise regimen as well as importance of dietary follow-up Patient was educated on the replacement products called optifast. This is a good way of taking fixed amount of calories. It has been shown in studies to be ineffective weight management tool. We also recommend maintaining adequate protein intake and muscle composition, 1.5mg/kg This however has to be coupled with lifestyle intervention as well as laboratory data and EKG monitoring. It is impossible to know how a person will tolerate complete meal replacement. The side effects of meal replacement and weight loss could include syncopal attacks, dizziness, gallstones, potential cholecystectomy, possible heart attack and even . The benefits of meal replacement would be potential weight loss but no guarantees can be made. Meal replacement products are not covered by insurance. Once the patient has bought these products we cannot return them B. Lifestyle management which includes several strategies as below 1. Eat a low carbohydrate good fat good protein diet. Eliminate refined carbohydrates from the diet. Continue blood sugar and sugared beverages. Eat local organic when possible. Cook your own meals. Read food labels. None about healthy snacks. Portion control and food with low glycemic index 2. Exercise regularly. Try to get at least 6000 steps a day. Use a predominant to track activity level. Consider using apps like [employer], [employer], lose it, stick as needed for self-monitoring and weight management. Consider group exercises. Consider hiring a personal consultant. Regular exercise is navarro to sustainable health and prevents as a buffer against weight regain 3. Sleep is most important for healing. Tried to sleep at least 8 hours a night. A good quality sleep needs a sleep ritual with ideal room temperature of around 68. It might help to take a shower and have no electronics in the room and sleep in a very dark room without artificial light. Start her sleep routine and get up early in the morning and go to bed on time 4. Make a social connection. Surround yourself with positive people with positive energy. Connect with friends and family. 5. Get into the habit of meditating and mindfulness while doing everything. 6. Go outside and connect with nature. C. Prescription medications Patient was educated on the use of prescription medications for medical weight loss. This is a growing list and includes phentermine, Topamax,Qsymia, contrave, belviq and saxenda. All prescription medications could have side effects including but not limited to kidney stones, seizure disorder cardiac arrhythmias heart attack pancreatitis etc. etc.. Patient was encouraged to read the prescription insert and have coaching with their pharmacist and make an informed decision about taking medication and know that these medications are being prescribed with good intentions and we do not know how a patient would react to her medication. Sudden medications are FDA approved for weight loss and there is also off label use depending on patient's inability to afford medications in an attempt to lose weight D. Behavioral counseling was done to establish a relationship between food and an mood. Patient was provided information about local counseling and psychiatry and Dr Thomson at [facility]. We would like to cover regular topics and build on low glycemic eating exercise mindful eating, using yoga and meditation along with deep breathing and connecting with friends and family. E. MASS PAT reviewed, Patient's current medications were reviewed and opinion was given on medication that can cause weight gain and can be substituted F. Patient was assessed for risk with obesity including and not limiting to atherosclerosis heart disease stroke kidney disease, restrictive lung disease, irritable bowel syndrome and overall mortality. Risk of developing prediabetes diabetes and metabolic syndrome was discussed G. Therapeutic plan: We have decided to make therapeutic plan which would include choosing wisely on calories restricting portion getting active, tracking weight, getting good quality sleep and working on time management H. Patient will follow up in (4) weeks for weight management Of note, some information is being carried forward from prior records for informational purposes only and is being cited so that efficiency, safety and quality of the patient's care is not compromised This note was prepared using voice recognition software and direct typing Please excuse inadvertent hvac refrigeration technician or typing errors, or uncorrected word substitutions Although every attempt has been made by the provider to proofread this document, occasional misspellings and typographical errors may still be present Due to the previous pandemic, and the use of personal protective equipment (PPE) This may decrease voice recognition accuracy Inadvertent hvac refrigeration technician errors may occur 12/02/2023 Benign paroxysmal positional vertigo, unspecified laterality (ICD-10 - H81.10) Plan to start compounding program today 0.25 of semaglutide We discussed Weyareli moving forward Total time spent today was 30 minutes of which greater than 50% was spent on coordinating and counseling Patient has been found to be obese with a BMI of (30). Patient has class (1) obesity. We are a board certified obesity and weight management practice Patient has trialed behavioral modification, dietary restrictions and exercise for a minimum of 6 months The most recent [place] [employer] clinical endocrinologists and [place] [employer] guidelines recommend patients who have overweight BMI or obesity BMI, who also have metabolic syndrome, prediabetes, HLD, and other comorbidities or at risk of developing type 2 diabetes should aim for a weight loss goal of at least 10% of the baseline body weight Patient counseled regarding effects of GLP/GIP-1 agonists, and other FDA approved wgt loss meds with regards to a multifactorial approach of weight loss as mentioned above and not solely appetite suppression. We have discussed the mechanism of GLP-1's/GIP, dual incretins, appetitite suppressants I think this would be fantastic option for her given her metabolic workup and body composition We have discussed the risks and benefits and side effects including/and not limited to Sarcopenia, intestinal obstruction, constipation, nausea, lethargy, headache Discussed importance of protein consumption for muscle maintenance as well as strength and resistance training ,probiotics, B12 complex biotin , iron and other nutrients, To help avoid telogen effluvium We have discussed the lifelong requirement of nutritional supplementation And adherence to an exercise regimen as well as importance of follow-up The patient understands and agrees There is no history of medullary thyroid cancer or multiple endocrine neoplasia There is also no history of cardiovascular disease, hypertension, palpitations, or arrhythmias In the setting of potential stimulant/amphetami ne use such as phentermine We have also discussed risks and benefits, and the use of compounded medications to help offset the national shortages as well as financial implications vs trade name drugs Patient was reassured and welcomed to the practice. We discussed that we stress a hollistic medical approach with emphasis on lifestyle modification. Patient was informed that a healthy lifestyle with exercise and good eating habits can help reduce his risk of medical complications. He is explained that obesity increases his risk of diabetes, cardiovascular disease, or organ damage. We spent a lot of time discussing the relationship between food, exercise, sleep, mental health and obesity. Patient was counseled on the importance EATING local, organic food when possible. Patient was educated on clean 15 and dirty dozen. I provided information about reading books called The Food Rules by Ti Venegas and Eat Fat Get Lean by Dr Zaid Freeman. Self education is important in the journey for weight management. Patient was offered diagnostic testing. We want to measure visceral adiposity, advanced body composition, adverse lipids, fatty acid balance, risk for heart disease and atherosclerosis, markers of inflammation and genetic susceptibility. Patient was counseled on weight management and was advised to lose weight using A. Meal Replacement Products We discussed the lifelong requirement of nutritional supplementation and adherence to an exercise regimen as well as importance of dietary follow-up Patient was educated on the replacement products called optifast. This is a good way of taking fixed amount of calories. It has been shown in studies to be ineffective weight management tool. We also recommend maintaining adequate protein intake and muscle composition, 1.5mg/kg This however has to be coupled with lifestyle intervention as well as laboratory data and EKG monitoring. It is impossible to know how a person will tolerate complete meal replacement. The side effects of meal replacement and weight loss could include syncopal attacks, dizziness, gallstones, potential cholecystectomy, possible heart attack and even . The benefits of meal replacement would be potential weight loss but no guarantees can be made. Meal replacement products are not covered by insurance. Once the patient has bought these products we cannot return them B. Lifestyle management which includes several strategies as below 1. Eat a low carbohydrate good fat good protein diet. Eliminate refined carbohydrates from the diet. Continue blood sugar and sugared beverages. Eat local organic when possible. Cook your own meals. Read food labels. None about healthy snacks. Portion control and food with low glycemic index 2. Exercise regularly. Try to get at least 6000 steps a day. Use a predominant to track activity level. Consider using apps like Tribold, myfitnesspal, lose it, stick as needed for self-monitoring and weight management. Consider group exercises. Consider hiring a personal consultant. Regular exercise is navarro to sustainable health and prevents as a buffer against weight regain 3. Sleep is most important for healing. Tried to sleep at least 8 hours a night. A good quality sleep needs a sleep ritual with ideal room temperature of around 68. It might help to take a shower and have no electronics in the room and sleep in a very dark room without artificial light. Start her sleep routine and get up early in the morning and go to bed on time 4. Make a social connection. Surround yourself with positive people with positive energy. Connect with friends and family. 5. Get into the habit of meditating and mindfulness while doing everything. 6. Go outside and connect with nature. C. Prescription medications Patient was educated on the use of prescription medications for medical weight loss. This is a growing list and includes phentermine, Topamax,Qsymia, contrave, belviq and saxenda. All prescription medications could have side effects including but not limited to kidney stones, seizure disorder cardiac arrhythmias heart attack pancreatitis etc. etc.. Patient was encouraged to read the prescription insert and have coaching with their pharmacist and make an informed decision about taking medication and know that these medications are being prescribed with good intentions and we do not know how a patient would react to her medication. Sudden medications are FDA approved for weight loss and there is also off label use depending on patient's inability to afford medications in an attempt to lose weight D. Behavioral counseling was done to establish a relationship between food and an mood. Patient was provided information about local counseling and psychiatry and Dr Thomson at [facility]. We would like to cover regular topics and build on low glycemic eating exercise mindful eating, using yoga and meditation along with deep breathing and connecting with friends and family. E. MASS PAT reviewed, Patient's current medications were reviewed and opinion was given on medication that can cause weight gain and can be substituted F. Patient was assessed for risk with obesity including and not limiting to atherosclerosis heart disease stroke kidney disease, restrictive lung disease, irritable bowel syndrome and overall mortality. Risk of developing prediabetes diabetes and metabolic syndrome was discussed G. Therapeutic plan: We have decided to make therapeutic plan which would include choosing wisely on calories restricting portion getting active, tracking weight, getting good quality sleep and working on time management H. Patient will follow up in (4) weeks for weight management Of note, some information is being carried forward from prior records for informational purposes only and is being cited so that efficiency, safety and quality of the patient's care is not compromised This note was prepared using voice recognition software and direct typing Please excuse inadvertent hvac refrigeration technician or typing errors, or uncorrected word substitutions Although every attempt has been made by the provider to proofread this document, occasional misspellings and typographical errors may still be present Due to the previous pandemic, and the use of personal protective equipment (PPE) This may decrease voice recognition accuracy Inadvertent hvac refrigeration technician errors may occur 12/02/2023 Rheumatoid arthritis, involving unspecified site, unspecified whether rheumatoid factor present (ICD-10 - M06.9) Plan to start compounding program today 0.25 of semaglutide We discussed Mahamed moving forward Total time spent today was 30 minutes of which greater than 50% was spent on coordinating and counseling Patient has been found to be obese with a BMI of (30). Patient has class (1) obesity. We are a board certified obesity and weight management practice Patient has trialed behavioral modification, dietary restrictions and exercise for a minimum of 6 months The most recent [place] [employer]ocrinologists and [place] [employer] guidelines recommend patients who have overweight BMI or obesity BMI, who also have metabolic syndrome, prediabetes, HLD, and other comorbidities or at risk of developing type 2 diabetes should aim for a weight loss goal of at least 10% of the baseline body weight Patient counseled regarding effects of GLP/GIP-1 agonists, and other FDA approved wgt loss meds with regards to a multifactorial approach of weight loss as mentioned above and not solely appetite suppression. We have discussed the mechanism of GLP-1's/GIP, dual incretins, appetitite suppressants I think this would be fantastic option for her given her metabolic workup and body composition We have discussed the risks and benefits and side effects including/and not limited to Sarcopenia, intestinal obstruction, constipation, nausea, lethargy, headache Discussed importance of protein consumption for muscle maintenance as well as strength and resistance training ,probiotics, B12 complex biotin , iron and other nutrients, To help avoid telogen effluvium We have discussed the lifelong requirement of nutritional supplementation And adherence to an exercise regimen as well as importance of follow-up The patient understands and agrees There is no history of medullary thyroid cancer or multiple endocrine neoplasia There is also no history of cardiovascular disease, hypertension, palpitations, or arrhythmias In the setting of potential stimulant/amphetami ne use such as phentermine We have also discussed risks and benefits, and the use of compounded medications to help offset the national shortages as well as financial implications vs trade name drugs Patient was reassured and welcomed to the practice. We discussed that we stress a hollistic medical approach with emphasis on lifestyle modification. Patient was informed that a healthy lifestyle with exercise and good eating habits can help reduce his risk of medical complications. He is explained that obesity increases his risk of diabetes, cardiovascular disease, or organ damage. We spent a lot of time discussing the relationship between food, exercise, sleep, mental health and obesity. Patient was counseled on the importance EATING local, organic food when possible. Patient was educated on clean 15 and dirty dozen. I provided information about reading books called The Food Rules by Ti Venegas and Eat Fat Get Lean by Dr Zaid Freeman. Self education is important in the journey for weight management. Patient was offered diagnostic testing. We want to measure visceral adiposity, advanced body composition, adverse lipids, fatty acid balance, risk for heart disease and atherosclerosis, markers of inflammation and genetic susceptibility. Patient was counseled on weight management and was advised to lose weight using A. Meal Replacement Products We discussed the lifelong requirement of nutritional supplementation and adherence to an exercise regimen as well as importance of dietary follow-up Patient was educated on the replacement products called optifast. This is a good way of taking fixed amount of calories. It has been shown in studies to be ineffective weight management tool. We also recommend maintaining adequate protein intake and muscle composition, 1.5mg/kg This however has to be coupled with lifestyle intervention as well as laboratory data and EKG monitoring. It is impossible to know how a person will tolerate complete meal replacement. The side effects of meal replacement and weight loss could include syncopal attacks, dizziness, gallstones, potential cholecystectomy, possible heart attack and even . The benefits of meal replacement would be potential weight loss but no guarantees can be made. Meal replacement products are not covered by insurance. Once the patient has bought these products we cannot return them B. Lifestyle management which includes several strategies as below 1. Eat a low carbohydrate good fat good protein diet. Eliminate refined carbohydrates from the diet. Continue blood sugar and sugared beverages. Eat local organic when possible. Cook your own meals. Read food labels. None about healthy snacks. Portion control and food with low glycemic index 2. Exercise regularly. Try to get at least 6000 steps a day. Use a predominant to track activity level. Consider using apps like Tribold, [employer]ighter [employer]pal, lose it, stick as needed for self-monitoring and weight management. Consider group exercises. Consider hiring a personal consultant. Regular exercise is navarro to sustainable health and prevents as a buffer against weight regain 3. Sleep is most important for healing. Tried to sleep at least 8 hours a night. A good quality sleep needs a sleep ritual with ideal room temperature of around 68. It might help to take a shower and have no electronics in the room and sleep in a very dark room without artificial light. Start her sleep routine and get up early in the morning and go to bed on time 4. Make a social connection. Surround yourself with positive people with positive energy. Connect with friends and family. 5. Get into the habit of meditating and mindfulness while doing everything. 6. Go outside and connect with nature. C. Prescription medications Patient was educated on the use of prescription medications for medical weight loss. This is a growing list and includes phentermine, Topamax,Qsymia, contrave, belviq and saxenda. All prescription medications could have side effects including but not limited to kidney stones, seizure disorder cardiac arrhythmias heart attack pancreatitis etc. etc.. Patient was encouraged to read the prescription insert and have coaching with their pharmacist and make an informed decision about taking medication and know that these medications are being prescribed with good intentions and we do not know how a patient would react to her medication. Sudden medications are FDA approved for weight loss and there is also off label use depending on patient's inability to afford medications in an attempt to lose weight D. Behavioral counseling was done to establish a relationship between food and an mood. Patient was provided information about local counseling and psychiatry and Dr Thomson at [facility]. We would like to cover regular topics and build on low glycemic eating exercise mindful eating, using yoga and meditation along with deep breathing and connecting with friends and family. E. MASS PAT reviewed, Patient's current medications were reviewed and opinion was given on medication that can cause weight gain and can be substituted F. Patient was assessed for risk with obesity including and not limiting to atherosclerosis heart disease stroke kidney disease, restrictive lung disease, irritable bowel syndrome and overall mortality. Risk of developing prediabetes diabetes and metabolic syndrome was discussed G. Therapeutic plan: We have decided to make therapeutic plan which would include choosing wisely on calories restricting portion getting active, tracking weight, getting good quality sleep and working on time management H. Patient will follow up in (4) weeks for weight management Of note, some information is being carried forward from prior records for informational purposes only and is being cited so that efficiency, safety and quality of the patient's care is not compromised This note was prepared using voice recognition software and direct typing Please excuse inadvertent hvac refrigeration technician or typing errors, or uncorrected word substitutions Although every attempt has been made by the provider to proofread this document, occasional misspellings and typographical errors may still be present Due to the previous pandemic, and the use of personal protective equipment (PPE) This may decrease voice recognition accuracy Inadvertent hvac refrigeration technician errors may occur 12/02/2023 Pre-diabetes (ICD-10 - R73.03) Plan to start compounding program today 0.25 of semaglutide We discussed Mahamed moving forward Total time spent today was 30 minutes of which greater than 50% was spent on coordinating and counseling Patient has been found to be obese with a BMI of (30). Patient has class (1) obesity. We are a board certified obesity and weight management practice Patient has trialed behavioral modification, dietary restrictions and exercise for a minimum of 6 months The most recent [place] [employer] clinical endocrinologists and [place] [employer] guidelines recommend patients who have overweight BMI or obesity BMI, who also have metabolic syndrome, prediabetes, HLD, and other comorbidities or at risk of developing type 2 diabetes should aim for a weight loss goal of at least 10% of the baseline body weight Patient counseled regarding effects of GLP/GIP-1 agonists, and other FDA approved wgt loss meds with regards to a multifactorial approach of weight loss as mentioned above and not solely appetite suppression. We have discussed the mechanism of GLP-1's/GIP, dual incretins, appetitite suppressants I think this would be fantastic option for her given her metabolic workup and body composition We have discussed the risks and benefits and side effects including/and not limited to Sarcopenia, intestinal obstruction, constipation, nausea, lethargy, headache Discussed importance of protein consumption for muscle maintenance as well as strength and resistance training ,probiotics, B12 complex biotin , iron and other nutrients, To help avoid telogen effluvium We have discussed the lifelong requirement of nutritional supplementation And adherence to an exercise regimen as well as importance of follow-up The patient understands and agrees There is no history of medullary thyroid cancer or multiple endocrine neoplasia There is also no history of cardiovascular disease, hypertension, palpitations, or arrhythmias In the setting of potential stimulant/amphetami ne use such as phentermine We have also discussed risks and benefits, and the use of compounded medications to help offset the national shortages as well as financial implications vs trade name drugs Patient was reassured and welcomed to the practice. We discussed that we stress a hollistic medical approach with emphasis on lifestyle modification. Patient was informed that a healthy lifestyle with exercise and good eating habits can help reduce his risk of medical complications. He is explained that obesity increases his risk of diabetes, cardiovascular disease, or organ damage. We spent a lot of time discussing the relationship between food, exercise, sleep, mental health and obesity. Patient was counseled on the importance EATING local, organic food when possible. Patient was educated on clean 15 and dirty dozen. I provided information about reading books called The Food Rules by Ti Venegas and Eat Fat Get Lean by Dr Zaid Freeman. Self education is important in the journey for weight management. Patient was offered diagnostic testing. We want to measure visceral adiposity, advanced body composition, adverse lipids, fatty acid balance, risk for heart disease and atherosclerosis, markers of inflammation and genetic susceptibility. Patient was counseled on weight management and was advised to lose weight using A. Meal Replacement Products We discussed the lifelong requirement of nutritional supplementation and adherence to an exercise regimen as well as importance of dietary follow-up Patient was educated on the replacement products called optifast. This is a good way of taking fixed amount of calories. It has been shown in studies to be ineffective weight management tool. We also recommend maintaining adequate protein intake and muscle composition, 1.5mg/kg This however has to be coupled with lifestyle intervention as well as laboratory data and EKG monitoring. It is impossible to know how a person will tolerate complete meal replacement. The side effects of meal replacement and weight loss could include syncopal attacks, dizziness, gallstones, potential cholecystectomy, possible heart attack and even . The benefits of meal replacement would be potential weight loss but no guarantees can be made. Meal replacement products are not covered by insurance. Once the patient has bought these products we cannot return them B. Lifestyle management which includes several strategies as below 1. Eat a low carbohydrate good fat good protein diet. Eliminate refined carbohydrates from the diet. Continue blood sugar and sugared beverages. Eat local organic when possible. Cook your own meals. Read food labels. None about healthy snacks. Portion control and food with low glycemic index 2. Exercise regularly. Try to get at least 6000 steps a day. Use a predominant to track activity level. Consider using apps like Tribold, myfitnesspal, lose it, stick as needed for self-monitoring and weight management. Consider group exercises. Consider hiring a personal consultant. Regular exercise is navarro to sustainable health and prevents as a buffer against weight regain 3. Sleep is most important for healing. Tried to sleep at least 8 hours a night. A good quality sleep needs a sleep ritual with ideal room temperature of around 68. It might help to take a shower and have no electronics in the room and sleep in a very dark room without artificial light. Start her sleep routine and get up early in the morning and go to bed on time 4. Make a social connection. Surround yourself with positive people with positive energy. Connect with friends and family. 5. Get into the habit of meditating and mindfulness while doing everything. 6. Go outside and connect with nature. C. Prescription medications Patient was educated on the use of prescription medications for medical weight loss. This is a growing list and includes phentermine, Topamax,Qsymia, contrave, belviq and saxenda. All prescription medications could have side effects including but not limited to kidney stones, seizure disorder cardiac arrhythmias heart attack pancreatitis etc. etc.. Patient was encouraged to read the prescription insert and have coaching with their pharmacist and make an informed decision about taking medication and know that these medications are being prescribed with good intentions and we do not know how a patient would react to her medication. Sudden medications are FDA approved for weight loss and there is also off label use depending on patient's inability to afford medications in an attempt to lose weight D. Behavioral counseling was done to establish a relationship between food and an mood. Patient was provided information about local counseling and psychiatry and Dr Thomson at [facility]. We would like to cover regular topics and build on low glycemic eating exercise mindful eating, using yoga and meditation along with deep breathing and connecting with friends and family. E. MASS PAT reviewed, Patient's current medications were reviewed and opinion was given on medication that can cause weight gain and can be substituted F. Patient was assessed for risk with obesity including and not limiting to atherosclerosis heart disease stroke kidney disease, restrictive lung disease, irritable bowel syndrome and overall mortality. Risk of developing prediabetes diabetes and metabolic syndrome was discussed G. Therapeutic plan: We have decided to make therapeutic plan which would include choosing wisely on calories restricting portion getting active, tracking weight, getting good quality sleep and working on time management H. Patient will follow up in (4) weeks for weight management Of note, some information is being carried forward from prior records for informational purposes only and is being cited so that efficiency, safety and quality of the patient's care is not compromised This note was prepared using voice recognition software and direct typing Please excuse inadvertent hvac refrigeration technician or typing errors, or uncorrected word substitutions Although every attempt has been made by the provider to proofread this document, occasional misspellings and typographical errors may still be present Due to the previous pandemic, and the use of personal protective equipment (PPE) This may decrease voice recognition accuracy Inadvertent hvac refrigeration technician errors may occur 12/02/2023 Vitamin D deficiency (ICD-10 - E55.9) Plan to start compounding program today 0.25 of semaglutide We discussed Mahamed moving forward Total time spent today was 30 minutes of which greater than 50% was spent on coordinating and counseling Patient has been found to be obese with a BMI of (30). Patient has class (1) obesity. We are a board certified obesity and weight management practice Patient has trialed behavioral modification, dietary restrictions and exercise for a minimum of 6 months The most recent [place] [employer] clinical endocrinologists and [place] [employer] guidelines recommend patients who have overweight BMI or obesity BMI, who also have metabolic syndrome, prediabetes, HLD, and other comorbidities or at risk of developing type 2 diabetes should aim for a weight loss goal of at least 10% of the baseline body weight Patient counseled regarding effects of GLP/GIP-1 agonists, and other FDA approved wgt loss meds with regards to a multifactorial approach of weight loss as mentioned above and not solely appetite suppression. We have discussed the mechanism of GLP-1's/GIP, dual incretins, appetitite suppressants I think this would be fantastic option for her given her metabolic workup and body composition We have discussed the risks and benefits and side effects including/and not limited to Sarcopenia, intestinal obstruction, constipation, nausea, lethargy, headache Discussed importance of protein consumption for muscle maintenance as well as strength and resistance training ,probiotics, B12 complex biotin , iron and other nutrients, To help avoid telogen effluvium We have discussed the lifelong requirement of nutritional supplementation And adherence to an exercise regimen as well as importance of follow-up The patient understands and agrees There is no history of medullary thyroid cancer or multiple endocrine neoplasia There is also no history of cardiovascular disease, hypertension, palpitations, or arrhythmias In the setting of potential stimulant/amphetami ne use such as phentermine We have also discussed risks and benefits, and the use of compounded medications to help offset the national shortages as well as financial implications vs trade name drugs Patient was reassured and welcomed to the practice. We discussed that we stress a hollistic medical approach with emphasis on lifestyle modification. Patient was informed that a healthy lifestyle with exercise and good eating habits can help reduce his risk of medical complications. He is explained that obesity increases his risk of diabetes, cardiovascular disease, or organ damage. We spent a lot of time discussing the relationship between food, exercise, sleep, mental health and obesity. Patient was counseled on the importance EATING local, organic food when possible. Patient was educated on clean 15 and dirty dozen. I provided information about reading books called The Food Rules by Ti Venegas and Eat Fat Get Lean by Dr Zaid Freeman. Self education is important in the journey for weight management. Patient was offered diagnostic testing. We want to measure visceral adiposity, advanced body composition, adverse lipids, fatty acid balance, risk for heart disease and atherosclerosis, markers of inflammation and genetic susceptibility. Patient was counseled on weight management and was advised to lose weight using A. Meal Replacement Products We discussed the lifelong requirement of nutritional supplementation and adherence to an exercise regimen as well as importance of dietary follow-up Patient was educated on the replacement products called optifast. This is a good way of taking fixed amount of calories. It has been shown in studies to be ineffective weight management tool. We also recommend maintaining adequate protein intake and muscle composition, 1.5mg/kg This however has to be coupled with lifestyle intervention as well as laboratory data and EKG monitoring. It is impossible to know how a person will tolerate complete meal replacement. The side effects of meal replacement and weight loss could include syncopal attacks, dizziness, gallstones, potential cholecystectomy, possible heart attack and even . The benefits of meal replacement would be potential weight loss but no guarantees can be made. Meal replacement products are not covered by insurance. Once the patient has bought these products we cannot return them B. Lifestyle management which includes several strategies as below 1. Eat a low carbohydrate good fat good protein diet. Eliminate refined carbohydrates from the diet. Continue blood sugar and sugared beverages. Eat local organic when possible. Cook your own meals. Read food labels. None about healthy snacks. Portion control and food with low glycemic index 2. Exercise regularly. Try to get at least 6000 steps a day. Use a predominant to track activity level. Consider using apps like Tribold, [employer], lose it, stick as needed for self-monitoring and weight management. Consider group exercises. Consider hiring a personal consultant. Regular exercise is navarro to sustainable health and prevents as a buffer against weight regain 3. Sleep is most important for healing. Tried to sleep at least 8 hours a night. A good quality sleep needs a sleep ritual with ideal room temperature of around 68. It might help to take a shower and have no electronics in the room and sleep in a very dark room without artificial light. Start her sleep routine and get up early in the morning and go to bed on time 4. Make a social connection. Surround yourself with positive people with positive energy. Connect with friends and family. 5. Get into the habit of meditating and mindfulness while doing everything. 6. Go outside and connect with nature. C. Prescription medications Patient was educated on the use of prescription medications for medical weight loss. This is a growing list and includes phentermine, Topamax,Qsymia, contrave, belviq and saxenda. All prescription medications could have side effects including but not limited to kidney stones, seizure disorder cardiac arrhythmias heart attack pancreatitis etc. etc.. Patient was encouraged to read the prescription insert and have coaching with their pharmacist and make an informed decision about taking medication and know that these medications are being prescribed with good intentions and we do not know how a patient would react to her medication. Sudden medications are FDA approved for weight loss and there is also off label use depending on patient's inability to afford medications in an attempt to lose weight D. Behavioral counseling was done to establish a relationship between food and an mood. Patient was provided information about local counseling and psychiatry and Dr Thomson at [facility]. We would like to cover regular topics and build on low glycemic eating exercise mindful eating, using yoga and meditation along with deep breathing and connecting with friends and family. E. MASS PAT reviewed, Patient's current medications were reviewed and opinion was given on medication that can cause weight gain and can be substituted F. Patient was assessed for risk with obesity including and not limiting to atherosclerosis heart disease stroke kidney disease, restrictive lung disease, irritable bowel syndrome and overall mortality. Risk of developing prediabetes diabetes and metabolic syndrome was discussed G. Therapeutic plan: We have decided to make therapeutic plan which would include choosing wisely on calories restricting portion getting active, tracking weight, getting good quality sleep and working on time management H. Patient will follow up in (4) weeks for weight management Of note, some information is being carried forward from prior records for informational purposes only and is being cited so that efficiency, safety and quality of the patient's care is not compromised This note was prepared using voice recognition software and direct typing Please excuse inadvertent hvac refrigeration technician or typing errors, or uncorrected word substitutions Although every attempt has been made by the provider to proofread this document, occasional misspellings and typographical errors may still be present Due to the previous pandemic, and the use of personal protective equipment (PPE) This may decrease voice recognition accuracy Inadvertent hvac refrigeration technician errors may occur 12/02/2023 Back pain, unspecified back location, unspecified back pain laterality, unspecified chronicity (ICD-10 - M54.9) Plan to start compounding program today 0.25 of semaglutide We discussed Mahamed moving forward Total time spent today was 30 minutes of which greater than 50% was spent on coordinating and counseling Patient has been found to be obese with a BMI of (30). Patient has class (1) obesity. We are a board certified obesity and weight management practice Patient has trialed behavioral modification, dietary restrictions and exercise for a minimum of 6 months The most recent [place] [employer] of clinical endocrinologists and [place] [employer] guidelines recommend patients who have overweight BMI or obesity BMI, who also have metabolic syndrome, prediabetes, HLD, and other comorbidities or at risk of developing type 2 diabetes should aim for a weight loss goal of at least 10% of the baseline body weight Patient counseled regarding effects of GLP/GIP-1 agonists, and other FDA approved wgt loss meds with regards to a multifactorial approach of weight loss as mentioned above and not solely appetite suppression. We have discussed the mechanism of GLP-1's/GIP, dual incretins, appetitite suppressants I think this would be fantastic option for her given her metabolic workup and body composition We have discussed the risks and benefits and side effects including/and not limited to Sarcopenia, intestinal obstruction, constipation, nausea, lethargy, headache Discussed importance of protein consumption for muscle maintenance as well as strength and resistance training ,probiotics, B12 complex biotin , iron and other nutrients, To help avoid telogen effluvium We have discussed the lifelong requirement of nutritional supplementation And adherence to an exercise regimen as well as importance of follow-up The patient understands and agrees There is no history of medullary thyroid cancer or multiple endocrine neoplasia There is also no history of cardiovascular disease, hypertension, palpitations, or arrhythmias In the setting of potential stimulant/amphetami ne use such as phentermine We have also discussed risks and benefits, and the use of compounded medications to help offset the national shortages as well as financial implications vs trade name drugs Patient was reassured and welcomed to the practice. We discussed that we stress a hollistic medical approach with emphasis on lifestyle modification. Patient was informed that a healthy lifestyle with exercise and good eating habits can help reduce his risk of medical complications. He is explained that obesity increases his risk of diabetes, cardiovascular disease, or organ damage. We spent a lot of time discussing the relationship between food, exercise, sleep, mental health and obesity. Patient was counseled on the importance EATING local, organic food when possible. Patient was educated on clean 15 and dirty dozen. I provided information about reading books called The Food Rules by Ti Venegas and Eat Fat Get Lean by Dr Zaid Freeman. Self education is important in the journey for weight management. Patient was offered diagnostic testing. We want to measure visceral adiposity, advanced body composition, adverse lipids, fatty acid balance, risk for heart disease and atherosclerosis, markers of inflammation and genetic susceptibility. Patient was counseled on weight management and was advised to lose weight using A. Meal Replacement Products We discussed the lifelong requirement of nutritional supplementation and adherence to an exercise regimen as well as importance of dietary follow-up Patient was educated on the replacement products called optifast. This is a good way of taking fixed amount of calories. It has been shown in studies to be ineffective weight management tool. We also recommend maintaining adequate protein intake and muscle composition, 1.5mg/kg This however has to be coupled with lifestyle intervention as well as laboratory data and EKG monitoring. It is impossible to know how a person will tolerate complete meal replacement. The side effects of meal replacement and weight loss could include syncopal attacks, dizziness, gallstones, potential cholecystectomy, possible heart attack and even . The benefits of meal replacement would be potential weight loss but no guarantees can be made. Meal replacement products are not covered by insurance. Once the patient has bought these products we cannot return them B. Lifestyle management which includes several strategies as below 1. Eat a low carbohydrate good fat good protein diet. Eliminate refined carbohydrates from the diet. Continue blood sugar and sugared beverages. Eat local organic when possible. Cook your own meals. Read food labels. None about healthy snacks. Portion control and food with low glycemic index 2. Exercise regularly. Try to get at least 6000 steps a day. Use a predominant to track activity level. Consider using apps like Tribold, [employer], lose it, stick as needed for self-monitoring and weight management. Consider group exercises. Consider hiring a personal consultant. Regular exercise is navarro to sustainable health and prevents as a buffer against weight regain 3. Sleep is most important for healing. Tried to sleep at least 8 hours a night. A good quality sleep needs a sleep ritual with ideal room temperature of around 68. It might help to take a shower and have no electronics in the room and sleep in a very dark room without artificial light. Start her sleep routine and get up early in the morning and go to bed on time 4. Make a social connection. Surround yourself with positive people with positive energy. Connect with friends and family. 5. Get into the habit of meditating and mindfulness while doing everything. 6. Go outside and connect with nature. C. Prescription medications Patient was educated on the use of prescription medications for medical weight loss. This is a growing list and includes phentermine, Topamax,Qsymia, contrave, belviq and saxenda. All prescription medications could have side effects including but not limited to kidney stones, seizure disorder cardiac arrhythmias heart attack pancreatitis etc. etc.. Patient was encouraged to read the prescription insert and have coaching with their pharmacist and make an informed decision about taking medication and know that these medications are being prescribed with good intentions and we do not know how a patient would react to her medication. Sudden medications are FDA approved for weight loss and there is also off label use depending on patient's inability to afford medications in an attempt to lose weight D. Behavioral counseling was done to establish a relationship between food and an mood. Patient was provided information about local counseling and psychiatry and Dr Thomson at [facility]. We would like to cover regular topics and build on low glycemic eating exercise mindful eating, using yoga and meditation along with deep breathing and connecting with friends and family. E. MASS PAT reviewed, Patient's current medications were reviewed and opinion was given on medication that can cause weight gain and can be substituted F. Patient was assessed for risk with obesity including and not limiting to atherosclerosis heart disease stroke kidney disease, restrictive lung disease, irritable bowel syndrome and overall mortality. Risk of developing prediabetes diabetes and metabolic syndrome was discussed G. Therapeutic plan: We have decided to make therapeutic plan which would include choosing wisely on calories restricting portion getting active, tracking weight, getting good quality sleep and working on time management H. Patient will follow up in (4) weeks for weight management Of note, some information is being carried forward from prior records for informational purposes only and is being cited so that efficiency, safety and quality of the patient's care is not compromised This note was prepared using voice recognition software and direct typing Please excuse inadvertent hvac refrigeration technician or typing errors, or uncorrected word substitutions Although every attempt has been made by the provider to proofread this document, occasional misspellings and typographical errors may still be present Due to the previous pandemic, and the use of personal protective equipment (PPE) This may decrease voice recognition accuracy Inadvertent hvac refrigeration technician errors may occur PLAN OF TREATMENT Pending Test Test Name Order Date AMYLASE 12/01/2023 CBC (COMPLETE BLOOD COUNT) WITH DIFF COMPREHENSIVE METABOLIC PANEL 12/01/2023 LIPASE 12/01/2023 URINALYSIS W/REFLEX CULTURE 04/06/2023 URINALYSIS W/REFLEX CULTURE 12/01/2023 Chest 2 Views Frontal and Lat 09/29/2023 CT Abd and Pelvis w Contrast 12/01/2023 XR T-Spine 3 Views 04/06/2023 Future Test Test Name Order Date HEMOGLOBIN A1C 08/27/2022 LIPID PANEL 08/27/2022 25OH VITAMIN D 02/24/2023 CBC (COMPLETE BLOOD COUNT) WITH DIFF COMPREHENSIVE METABOLIC PANEL 02/24/2023 HEMOGLOBIN A1C 02/24/2023 LIPID PANEL 02/24/2023 TSH WITH REFLEX TO FT4 02/24/2023 URINALYSIS W/REFLEX CULTURE 02/24/2023 Insurance Providers Payer Name Payer Address Payer Phone Subscriber Number Group Number Insured Name Patient Relationship to Insured Coverage Start Date Coverage End Date [facility] [address] [place] [address] [phone] [id number] Romelia Rincon Self - patient is the insured MEDICATIONS ADMINISTERED Medication Instructions Date of Administration Dosage Notes Semaglutide 10/18/2023 0.25 mL MEDICAL (GENERAL) HISTORY Surgical History Surgery Date(Month/Year) endometrial ablation cholecystectomy
== END 2024-11-13 10:33 | disposition home or self-care (01) ==
PROVIDERS: PCP Internal Medicine; Visit Provider Hospitalist
DX: J84.9 Interstitial pulmonary disease, unspecified (principal); M05.9 Rheumatoid arthritis with rheumatoid factor, unspecified; J98.4 Other disorders of lung; G47.33 Obstructive sleep apnea (adult) (pediatric); J40 Bronchitis, not specified as acute or chronic
CPT/HCPCS: 99214

== ENCOUNTER → 2024-11-13 09:55 | Outpatient (BNVA) | payer OTHER, SELFPAY | PROVIDERS: PCP Internal Medicine; Visit Provider Hospitalist | DX: J84.9 Interstitial pulmonary disease, unspecified (principal); G47.33 Obstructive sleep apnea (adult) (pediatric) ==

== ENCOUNTER 2024-12-28 08:08 | Outpatient (REF) | payer OTHER, SELFPAY ==
--- NOTE | ~2024-12-28 | CT_ITS ---
EXAMINATION: CT CHEST WITHOUT IV CONTRAST INDICATION: J84.9 - Interstitial pulmonary disease, unspecified COMPARISON: Comparison is made with the prior examination dated 01/03/2024. TECHNIQUE: Helical CT scan of the chest was performed without intravenous contrast. Coronal and sagittal reformatted images were generated and reviewed. This CT exam was performed with one or more of the following dose reduction techniques: automated exposure control, adjustment of the mA and/or kV according to patient size, use of iterative reconstruction technique. DLP: 256 mGy-cm CHEST: THYROID: The thyroid is unremarkable. LUNGS: Again seen are thickened interlobular septae at the peripheral aspects of both lungs, greatest at the bases, consistent with fibrosis. There are small areas of honeycombing in the azygoesophageal recess of the right lower lobe. There are no groundglass opacities, pulmonary nodules, or bronchiectasis. No significant emphysematous changes. The appearance is not significantly changed from the prior study. MEDIASTINUM: There is no mediastinal lymphadenopathy. DAVE: Evaluation of the hilar regions is limited by lack of intravenous contrast material. CARDIOVASCULATURE: The heart is normal in size. There is no pericardial effusion. The thoracic aorta is normal in caliber. DEGREE OF CORONARY CALCIFICATION: none PLEURA: There is no pleural effusion. No pneumothorax. MAIN AIRWAYS: The mainstem bronchi and proximal branches are patent. AXILLA: There is no axillary lymphadenopathy. BONES AND SOFT TISSUES: Unremarkable UPPER ABDOMEN: The visualized portions of the liver, spleen, and adrenals have an unremarkable unenhanced appearance. CT/CT chest wo IV con IMPRESSION: Mild pulmonary fibrosis as described, without significant change from the prior study. Electronically signed by: Juan Dey MD 12/28/2024 09:01 AM [facility]
--- OUTSIDE RECORDS SUMMARY | 2024-12-28 08:20 | XMS_ITS | Patient Health Record ---
Author Organization [facility] Address [address] [place] [address] Care Team Providers Care Supervisor Solder Making Name Role Phone Tawnya Dawson Primary Care Provider Gopal Singh Unavailable [phone] Allergies Allergen (clinical drug ingredient) Drug/Non Drug [...] W/U Status Risk Notes Problem Achilles bursitis (917709829) Achilles tendinitis, left leg (M76.62) Active confirmed Unresolved Problem Peroneal tendinitis (12103087) Peroneal tendinitis, left leg (M76.72) Active confirmed Unresolved Plan Of Treatment Pending Test Test Name Order Date X ray : Ankle, left 3V 10/19/2022 X ray : Ankle, right 3V 10/19/2022 Insurance Providers Payer Name Payer Address Payer Phone Subscriber Number Group Number Insured Name Patient Relationship to Insured Coverage Start Date Coverage End Date [facility] [address] [place] [address] [id number] Romelia Rincon Self - patient is the insured Medical (General) History Medical History History ICD Code Arthritis - Rheumatoid Back,Hip,and Knee pain Cataracts Chicken pox covid-19 Depression Gall bladder problems Headaches/Migraines Hearing loss Lung disease Psoriasis/eczema Surgical History Surgery Date(Month/Year) Laparoscopy 1991 cholecystectomy 1992 endometrial ablation oopherectomy 2011
--- OUTSIDE RECORDS SUMMARY | 2024-12-28 08:20 | XMS_ITS ---
Author Organization [facility] Address [address] [place] [address] Care Team Providers Care Supervisor Pipe Joints Name Role Phone SAJAN ARTEAGA Unavailable [phone] Encounters Encounter Location Date Provider Diagnosis [facility] [address] [address] 12/16/2023 SAJAN ARTEAGA PLAN OF TREATMENT No Information Progress Notes * Romelia DARDENDOB:[birth year] (58 yo F)Acc No.[id number]:12/16/2023 Patient:??Romelia DARDEN :1965?Age:58 Y?Sex:Fe male Address:[address] [place] [id number] * true * Date:??
--- OUTSIDE RECORDS SUMMARY | 2024-12-28 08:20 | XMS_ITS | Clinical Summary ---
Author Organization [facility] it Address [address] [place] [address] Care Team Providers Care Diesel Technician Name Role Phone Toriecrtrenton Mar Mendosa NP Primary Care Provider [phone] Surgical History Surgery Date Site/Laterality Comments CHOLECYSTECTOMY PROCEDURE: LAPAROSCOPY, CHOLECYSTECTOMY OOPHORECTOMY PROCEDURE: HISTORICAL OOPHORECTOMY; COMMENT: bilateral secondary to cysts OTHER SURGICAL HISTORY PROCEDURE: MT HYSTEROSCOPY ENDOMETRIAL ABLATION Medical History Medical History Date Comments Rheumatoid arthritis (CMS/HCC) D X:Rheumatoid arthritis (HCC) Ovarian cyst DX:Ovarian cyst Family History Medical History Relation Name Comments Leukemia Aunt maternal aunt; Arthritis Brother 1 Other: skin cancer Brother 1 ? type; a live 2015 Other: HIV Brother 2 Other: HIV Brother 3 Diabetes Father Colon cancer Grandparent maternal; dx ag e > 50; Arthritis Mother RA Heart attack Mother Ovarian cancer Other 1 maternal firs t cousin; Lung cancer Other 2 maternal first cousin; renal cancer also;; nonsmoker Lymphoma Other 3 niece; alive 20 16 Hypertension Sister 1 Arthritis Sister 2 Other: fibromyalgia Sister 2 Breast cancer Neg Hx Prostate cancer Neg Hx Uterine cancer Neg Hx Relation Name Status Comments Aunt Brother 1 Brother 2 Brother 3 Father Alive Grandparent Mother Other 1 Other 2 Other 3 Sister 1 Sister 2 Son Alive Social History Tobacco Use Types Packs/Day Years Used Date Smoking Tobacco: Never Smokeless Tobacco: Never Alcohol Use Standard Drinks/Week Comments Yes 0 (1 standard drink = 0.6 oz pur e alcohol) Comments Unknown Sex and Gender Information Value Date Recorded Sex Assigned at Not on file Legal Sex Female 10:13 AM EST Gender Identity Not on file Sexual Orientation Not on file Obstetrics History Last Filed Vital Signs Vital Sign Reading Time Taken Comments Blood Pressure 128/80 04/26/2024 9:34 AM EDT Sit ting L Arm Pulse 120 04/26/2024 9:34 AM EDT Temperature - - Respiratory Rate - - Oxygen Saturation - - Inhaled Oxygen Concentration - - Weight 125 kg (275 lb) 04/26/2024 9:34 AM EDT Height 168.9 cm (5' 6.5 ) 04/26/2024 9:34 AM EDT Body Mass Index 43.72 04/26/2024 9:34 AM EDT Plan of Treatment Health Maintenance Due Date Last Done Comments Hepatitis B Vaccines (1 of 3 - 19+ 3-dose series) 1986 Pneumococcal Vaccine: 50+ Years (1 of 1 - PCV) 2017 Zoster Vaccines (1 of 2) 2017 Cholesterol Screening (Lipid Panel) 10/10/2022 Colorectal Cancer Screening: Colonoscopy 10/10/2022 Depression Screening 10/10/2022 HIV Screening 10/10/2022 Hepatitis C Screening 10/10/2022 Social Influencers of Health Screening 10/10/2022 DTaP,Tdap,and Td Vaccines (2 - Td or Tdap) 02/21/2023 02/21/2013 Cervical Cancer Screening: Pap Smear 03/18/2024 03/18/2021 COVID-19 Vaccine ( season) 2024 04/12/2021, 03/22/2021 Influenza Vaccine (#1) 2024 Breast Cancer Screening 04/14/2025 04/14/20, 02/06/2022, 09/05/2020, Additional history exists HIB Vaccines Aged Out No longer eligi ble based on patient's age to complete this topic HPV Vaccines Aged Out No longer eligi ble based on patient's age to complete this topic Hepatitis A Vaccines Aged Out No long er eligible based on patient's age to complete this topic IPV Vaccines Aged Out No longer eligi ble based on patient's age to complete this topic MMR Vaccines Aged Out No longer eligi ble based on patient's age to complete this topic Meningococcal ACWY Vaccine Aged Out N o longer eligible based on patient's age to complete this topic Meningococcal B Vacine Aged Out No lo nger eligible based on patient's age to complete this topic Pneumococcal Vaccine: Pediatrics (0 to 5 Years) and At-Risk Patients (6 to 64 Years) Aged Out No longer eligible based on patient's age to complete this topic RSV Immunization Patients Under 20 months Aged Out No longer eligible based on patient's age to complete this topic Varicella Vaccines Aged Out No longer eligible based on patient's age to complete this topic Procedures Procedure Name Priority Date/Time Associated Diagnosis Comments OKSANA SCREENING DIGITAL Routine 04/14/2023 3:40 PM EDT Encounter for screening mammogram for malignant neoplasm of breast PAP SMEAR Routine 03/18/2021 from Last 3 Months or Most Recently Relevant to Health Maintenance Results * OKSANA SCREENING DIGITAL (04/14/2023 3:40 PM EDT) Anatomical Region Laterality Modality Mammography 04/14/2023 7:52 AM EDT Narrative 04/14/2023 3:40 PM EDT [facility] Diagnostic Imaging Department [address] [place] [address] Patient: ??OLGA DARDEN ?/Age/Sex: 1965 - 57 - F Unit#: ??[id number] ? Location/Status: ??SPDIMAM/REG CLI ? Mnemonic/Ordering Site: ??DIGSC/SPMAM Ordering Physician: ??TAWNYA DAWSON MD [facility] Screening Digital - 04/14/23 - 828 Report Status:Signed EXAM: [facility] Screening Digital EXAM DATE AND TIME: 04/14/2023 8:29 AM HISTORY: ??Screening. COMPARISON: ??02/06/22, 09/05/20, 08/18/19 TECHNIQUE: CC and MLO views of both breasts were obtained using full field digital mammography. Bilateral digital breast tomosynthesis was performed in the MLO projection. Computer aided detection with Graduateland 7.2-H and AGELON ? 3D 3.1 was employed. TISSUE DENSITY: a. The breasts are almost entirely fatty. FINDINGS: No suspicious masses, grouped microcalcifications, or areas of architectural distortion are seen. The skin and vascularity are unremarkable. IMPRESSION: Stable mammographic appearance of the breasts. ??No evidence of malignancy is seen. A negative mammogram in the presence of a clinically suspicious palpable abnormality does not preclude the possibility of malignancy or alter the indications for biopsy. BI-RADS: ??Category 1: Negative RECOMMENDATION(S): 1: Routine screening mammogram BILATERAL in 1 year. 30573, 36489 3341F, 7025F Dictating Physician: ??BRANDI CERVANTES MD Electronically Signed by: ??BRANDI CERVANTES MD Dic Date/Time: ??04/14/23 1539 Sign date/Time: ??04/14/23 1540 Procedure Note Brandi Cervantes MD - 12/07/2023 [facility] Diagnostic Imaging Department [address] [place] [address] Patient: ADELSOOLGA /Age/Sex: 1965 - 57 - F Unit#: [id number] Location/Status: [facility] CLI Mnemonic/Ordering Site: [facility] Ordering Physician: TAWNYA DWASON MD [facility] Screening Digital - 04/14/23828 Report Status:Signed EXAM: [facility] Screening Digital EXAM DATE AND TIME: 04/14/2023 8:29 AM HISTORY: Screening. COMPARISON: 02/06/22, 09/05/20, 08/18/19 TECHNIQUE: CC and MLO views of both breasts were obtained using fullfield digital mammography. Bilateral digital breast tomosynthesis was performedin the MLO projection. Computer aided detection with Graduateland 7.2-H andAGELON ? 3D 3.1 was employed. TISSUE DENSITY: a. The breasts are almost entirely fatty. FINDINGS: No suspicious masses, grouped microcalcifications, or areas ofarchitectural distortion are seen. The skin and vascularity are unremarkable. IMPRESSION: Stable mammographic appearance of the breasts. No evidence of malignancyis seen. A negative mammogram in the presence of a clinically suspicious palpable abnormality does not preclude the possibility of malignancy or alter the indications for biopsy. BI-RADS: Category 1: Negative RECOMMENDATION(S): 1: Routine screening mammogram BILATERAL in 1 year. 04864, 31958 3341F, 7025F Dictating Physician: BRANDI CERVANTES MD Electronically Signed by: BRANDI CERVANTES MD Dic Date/Time: 04/14/23 1539 Sign date/Time: 04/14/23 1540 Tawnya Dawson MD IMG BI PROCEDURES Final Result * Pap smear (03/18/2021) 03/18/2021 Narrative HISTORICAL TESTING LAB RESULTING AGENCY - 03/20/2021 3:20 PM EDT [id number] THINPREP PAP, IMAGED: NEGATIVE FOR SQUAMOUS INTRAEPITHELIAL LESION AND MALIGNANCY . MELODIE DZIURA , CT(ASCP) (CASE ELECTRONICALLY SIGNED 03 20 2021) RESULT OF APTIMA HIGH RISK HPV ASSAY: HIGH RISK HPV: ??NEGATIVE (SEROTYPES 16,18,31,33,35,39,45,51,52,56,58,59,66,68) COMPLETED ON 2021-03-20 ADEQUACY: SATISFACTORY NONE SOURCE: THINPREP PAP HPV ANY DX: ??REFLEX 16 AND 18, CERVICAL, IMAGED CLINICAL INFORMATION: HPV ANY DIAGNOSIS. HORMONES, PAP HX NEG, Z12.4 Maisha Guzman DO LAB CYTOLOGY ORDERABLES Final Result HISTORICAL TESTING LAB RESULTING AGENCY from Last 3 Months or Most Recently Relevant to Health Maintenance Care Teams Diesel Technician Relationship Specialty Start Date End Date Mar Allison NP PCP - General 12/02/23
--- OUTSIDE RECORDS SUMMARY | 2024-12-28 08:20 | XMS_ITS ---
Author Organization [facility] Address [address] [place] [address] Care Team Providers Care Pole Peeling Machine Operator Helper Name Role Phone SAJAN ARTEAGA Unavailable [phone] [facility] Unavailable [phone] Encounters Encounter Location Date Provider Diagnosis [address] [place] [address] 12/31/2023 [facility] PLAN OF TREATMENT No Information Progress Notes * Romelia DARDENDOB:[birth year] (58 yo F)Acc No.[id number]:12/31/2023 Patient:??Romelia DARDEN :1965?Age:58 Y?Sex:Fe male Address:[address] [place] [address] * true * Date:??
--- OUTSIDE RECORDS SUMMARY | 2024-12-28 08:20 | XMS_ITS ---
Author Organization [facility] Address [address] [place] [address] Care Team Providers Care Safety Coordinator Name Role Phone SAJAN ARTEAGA Unavailable [phone] Encounters Encounter Location Date Provider Diagnosis [facility] [address] [place] [address] 12/17/2023 SAJAN ARTEAGA PLAN OF TREATMENT No Information Progress Notes * Romelia DARDENDOB:[birth year] (58 yo F)Acc No.[id number]:12/17/2023 Patient:??Romelia DARDEN :1965?Age:58 Y?Sex:Fe male Address:[address] [place] [address] * true * Date:??
--- OUTSIDE RECORDS SUMMARY | 2024-12-28 08:20 | XMS_ITS | Patient Health Record ---
Author Organization [facility] Address [address] [place] [address] Care Team Providers Care Buffing Line Set Up Worker Name Role Phone SAJAN ARTEAGA Unavailable [phone] [facility] Unavailable [phone] ALLERGIES Allergen (clinical drug ingredient) Drug/Non Drug Allergy documented on EMR Reaction Allergy Type Onset Date Status clindamycin Clindamycin Unknown Drug Allergy Act eva Penicillin Unknown Drug Allergy Active RESULTS Component Value Reference Range Notes CT Abdomen Pelvis WO Cont Reviewed date:12/29/2023 05:27:06 PM Interpretation: Performing Lab: Notes/Report: Original Ordering Provider: [facility] MEDRANO DIRECTOR OPERATING [facility] REASON FOR REFERRAL No Information MEDICATIONS Medication SIG (Take, Route, Frequency, Duration) [...] due to excess calories (E66.01) Active confirmed 413805645 Problem Dysuria (R30.0) Active confirmed Dysuri a (42732381) Problem Encounter for general adult medical examination without abnormal findings (Z00.00) Active confirmed 722638340 Problem Back pain, unspecified back location, unspecified back pain laterality, unspecified chronicity (M54.9) Active confirmed Backache (583264386) Problem Hyperlipidemia, unspecified hyperlipidemia type (E78.5) Active confirmed 00886794 Problem Vitamin D deficiency (E55.9) Active confirmed Vitamin D deficiency (61319323) Problem Pre-diabetes (R73.03) Active confirmed Prediabetes (715725809) Problem Rheumatoid arthritis, involving unspecified site, unspecified whether rheumatoid factor present (M06.9) Active confirmed 84400278 Problem Body mass index [BMI] 40.0-44.9, adult (Z68.41) Active confirmed 046030925 Problem Allergy, sequela (T78.40XS) Active confirmed Allergy (227943799) Problem Interstitial lung disease (J84.9) Active confirmed Interstitial lung disease (520307104) Encounters Encounter Location Date Provider Diagnosis [address] [facility] [address] [place] [address] 12/31/2023 [facility] PLAN OF TREATMENT Pending Test Test Name Order Date AMYLASE 12/01/2023 CBC (COMPLETE BLOOD COUNT) WITH DIFF COMPREHENSIVE METABOLIC PANEL 12/01/2023 LIPASE 12/01/2023 URINALYSIS W/REFLEX CULTURE 12/01/2023 URINALYSIS W/REFLEX CULTURE 04/06/2023 Chest 2 Views Frontal and Lat 09/29/2023 [...] Insured Coverage Start Date Coverage End Date [facility] [address] [place] [address] [phone] [id number] 01 Romelia Rincon Self - patient is the insured 1 MEDICATIONS ADMINISTERED Medication Instructions Date of Administration Dosage Notes Semaglutide 10/18/2023 0.25 mL MEDICAL (GENERAL) HISTORY Surgical History Surgery Date(Month/Year) endometrial ablation cholecystectomy
== END 2024-12-28 08:09 | disposition home or self-care (01) ==
LOC: HO.CT 08:08
PROVIDERS: PCP Internal Medicine; Visit Provider Hospitalist
DX: J84.9 Interstitial pulmonary disease, unspecified (principal)
CPT/HCPCS: 71250

== ENCOUNTER → 2024-12-28 08:10 | Outpatient (BNV) | payer OTHER, SELFPAY | PROVIDERS: PCP Internal Medicine; Visit Provider Radiology Diagnostic Radiology | DX: J84.9 Interstitial pulmonary disease, unspecified (principal) | CPT/HCPCS: 71250 ==

== ENCOUNTER 2025-02-22 09:52 | Outpatient (AMB) | payer OTHER, SELFPAY ==
--- NOTE | 2025-02-22 09:53 | A.OFFVIS_ITS ---
Vital Signs 02/22/25 09:54 Height 5 ft 7 in Weight 281 lb 1.43 oz BMI 44.0 BP 138/70 Blood Pressure Location Lt brachial Position Sitting Pulse 72 Pulse Source Pulse Oximeter Pulse Oximetry (%) 98 Oxygen Delivery Method Room Air Intake Visit Reasons: ILD/CT Follow Up Urogynaecologist Required: No Accompanied by: Self / Same As Patient Allergies clindamycin Adverse Reaction (Severe, Verified 02/22/25 10:01) Hives Iodinated Contrast Media Adverse Reaction (Severe, Verified 02/22/25 10:01) Vomiting Penicillins Adverse Reaction (Severe, Verified 02/22/25 10:01) Diarrhea HPI Comments Details: The patient is a 59-year-old woman with a known history of rheumatoid arthriti s and interstitial lung disease. The patient had been having worsening shortness of breath and was evaluated by a fellow rod machine operator from [facility]. in 2018 the patient undergo went a video-assisted thoracoscopy with wedge biopsies of the right middle lobe and also the right lower lobe. At this point we do not have the biopsy results although we did request done for [facility]. She did follow-up with the rod machine operator at the time and he recommended going on cortical steroid therapy. The patient preferred not to in view of the adverse effects from prednisone. In the meantime she has had multiple medications she has use for rheumatoid arthritis. Right now her symptoms are active with small joint involvement. The patient is currently being arranged to have a referral with a resident care supervisor. during the visit we did go for 6 minutes walk test. The patient did well and did not need oxygen although heart rate was indeed elevated. Will go ahead and have her undergo pulmonary function studies and also Will request additional blood work. Will review her last CT scan and pathology and at that point will likely need additional imaging studies. 07/27/2022 the patient is here for a pulmonary follow-up visit. Overall she is doing relatively well. Denies any significant shortness of breath when he worsening dyspnea on exertion. Cough seems to be under control. The patient is not using inhalers. I did get the pathology from her wedge biopsy done at [facility]. 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 Explained to her that this is a reassuring finding as this is responsive to medication. Her blood work was all negative. Her CCP was negative for that she does have a history rheumatoid arthritis. It may just be in remission. She still has arthritis symptoms and she does take zliq-zkt-tuaboul NSAIDs. She used to have resident care supervisor but she is not following 1 regularly at this time. her last CT scan that she had was at [facility] that was back in October 2021 demonstrating the interstitial lung disease. Clinically the patient is doing well so therefore will follow-up with a repeat CT scan in 6 months. If the patient has any worsening symptoms prior to that she is to call so we can evaluated earlier time. We also reviewed her pulmonary function studies again consistent with restrictive lung disease primarily due to her interstitial lung disease but also elevated BMI. she was already plan to start exercising and weight management which is reassuring. 02/04/2023 the patient is here for pulmonary follow-up visit. Overall she is d oing well. Denies any significant shortness of breath or any worsening of her dyspnea symptoms. We did review her CT scan of the chest. Unfortunately has not been read as of yet. But I did look at it with her. She does have moderate amount of subpleural reticular changes consistent with scarring and also primarily at the bases. I do not see any evidence of any ground-glass opacities to go along with active cellular NSIP. This is reassuring. At this point we cannot compare 1 CT scan to the other. Her last PFTs were back in July 2022. Will go ahead and request PFTs at next visit in 6 months to see if there is any progression of disease. If there is progression we can consider antifibrotic agents to try to a slow down the progressive aspects of her connective tissue disease related interstitial lung disease. She does have some active arthritis symptoms. Unfortunately she has not followed up with Rheumatology. She needs to have a resident care supervisor followed closely. Will go ahead and start her on Plaquenil as his work for her in the past. But when she sees her resident care supervisor she will be able to have that either continued or change. Will make a referral at this time. In the meantime she is using her rescue inhaler as needed. The patient has not required any prednisone which she would like to avoid it if possible. 08/06/2023 the patient is here for a pulmonary follow-up visit. The patient overall has been about the same. She does have a good days and bad days. Currently she is doing well. The patient does have some dyspnea on exertion mild in severity. She does not require oxygen. We did review her pulmonary function studies that she just had an compared to the previous 1 from last year. It appears that she has a total lung capacity of 61% which is basically unchanged from last year. This is reassuring overall. Her diffusing capacity is also reassuring. Therefore based on her PFTs it does not appear to be any significant progression of disease in the last year. Therefore we can hold off on antifibrotic agents at this time. She also had been on the Plaquenil. Although for some reason she stopped it altogether. Explained to her the impo rtance of controlling the connective tissue disease in order to avoid any other extra articular contain manifestations such as the interstitial lung disease. The patient understands and will start taking the medication again. Otherwise will follow-up in the springtime with a repeat CT scan to assess for any progression of the pulmonary fibrosis. 04/13/2024 the patient is here for a pulmonary follow-up visit. Overall she is doing okay. The last few weeks she has had to use her rescue inhaler more often. Possibly related to the change season and also the humidity. Otherwise she has been doing well denies any significant shortness of breath. She does have mild dyspnea on exertion. She also had lower extremity edema. She did not take the Lasix the last time. She needs to be careful with sodium intake. We did review her CT scan of the chest that she had in 01/19/2024 and we did review it and compared to the CT scan from 2022. No significant changes in the interstitial lung disease suggesting stable chronic interstitial fibrosis from her underlying connective tissue disease. It appears to be stable at this time. She will be following up closely with rheumatology. The patient also is describing daytime drowsiness. Her Lawler score is elevated 11/24. She has woken up short of breath. She does have significant snoring. She does have cardiovascular risk factors and significant lower extremity edema. Will go ahead and request a sleep study at this time her follow-up afterwards. The patient will also undergo blood work just to monitor closely her interstitial lung disease. 07/19/2024 the patient is here for sick visit. She has been coughing now for about 6-8 weeks. Apparently she started with a URI and she did test negative for COVID. Subsequently after that she started coughing. Moderate severity sometimes severe. Sometimes she gags. She does bring up some phlegm yellowish in color at times. But not always. It has been difficult to expectorate. She has also been short of breath. She does have a nebulizer but she does not use it because she gets too tremulous. We also reviewed her last CT scan that she had back in 01/19/2024 demonstrating the stable chronic interstitial disease. at this point is related to her rheumatoid arthritis and therefore by stabilizing her RA we should see stabilization of the interstitial lung disease. The patient will be started on therapy for bronchitis in addition to asthma exacerbation. Will also provide him with cough medication. If the patient is no better she will call me in 48 hours. Otherwise she will return in 4-6 months with a chest x-ray. 11/13/2024 the patient is here for a pulmonary follow-up visit. Overall the patient has been doing well from a respiratory status. Denies any worsening shortness of breath. She continues on the Plaquenil. Denies any visual changes. She is going to have an eye test done soon. The patient had a CT scan back in 01/19/2024. She is due for repeat CT scan in 01/18/2025. Will see if there is any progression of her interstitial lung disease. If we see any progression will consider Ofev. Otherwise patient is without any other complaints. 02/22/2025 the patient is here for a pulmonary follow-up visit. The patient overall has been doing well. Denies any worsening respiratory symptoms. She did undergo CT scan of the chest which was personally by me. Patient still has some peripheral base subpleural pulmonary fibrosis. Seems very similar to the last couple years. Therefore no need to start Ofev. She does have rheumatoid arthritis. The patient follows closely with Rheumatology. She has not been on any medication for acid that is of this time. She understands that if she does develop a flare-up it can definitely affect her lungs so she needs to talk to her resident care supervisor about any maintenance therapies that she would need to minimize any pulmonary manifestations. [facility] Medical History Chronic restrictive lung disease Rheumatoid arthritis ILD (interstitial lung disease) Surgical History History of cataract surgery History of lung biopsy History of cholecystectomy History of bilateral oophorectomies Family History Mother Rheumatoid arthritis Sister Osteoarthritis Hypertension Brother Osteoarthritis Skin cancer Father Type 2 diabetes mellitus Osteoarthritis Hypertension Social History Alcohol intake: current Patient Tobacco Use Status: Never used Tobacco Review of Systems Const Denies chills, Denies fatigue, Denies fever(s), Denies weight gain and Denies weight loss Eyes Denies change in vision ENT Denies dizziness Card Denies chest pain, Denies leg edema, Denies lightheadedness, Denies palpitations, Reports dyspnea on exertion, Denies orthopnea and Denies other Resp Reports cough, Reports dyspnea on exertion and Reports wheezing GI Denies hematochezia and Denies change in stool character Reports no additional complaints Musc Denies abnormal gait, Denies muscle weakness, Denies numbness, Denies radiating pain into limb and Denies tingling Skin/Breast Denies rash Neuro Denies abnormal gait, Denies dizziness, Denies numbness and Denies tingling Endo Denies fatigue and Denies palpitations Aller/Immun Reports wheezing Physical Exam Vital Signs: Last Vital Signs Pulse 72 02/22/25 09:54 BP 138/70 02/22/25 09:54 Pulse Ox 98 02/22/25 09:54 Oxygen Delivery Method Room Air 02/22/25 09:54 BMI result Body Mass Index 44.0 Const General: comfortable HEENT Head: Yes normal to inspection Eyes General: appearance normal, both eyes and all related structures Neck Neck: Yes normal visual inspection and Yes supple Chest Chest palpation & inspection: normal inspection of the chest Resp Effort & Inspection: normal respiratory effort Auscultation: diminished lung sounds Cardio Rate: regular rate Rhythm: regular rhythm Heart sounds: S1 normal heart sound present and S2 normal heart sound present GI Inspection: Yes normal to inspection Skin General skin exam: no rashes or lesions noted Extrem General: Yes normal to inspection Assessment & Plan Assessment & Plan (1) ILD (interstitial lung disease): Comment: cellular NSIP/RA related ILD Code(s): J84.9 - Interstitial pulmonary disease, unspecified Category: Medical (2) Rheumatoid arthritis: Comment: +DIYA RF, CCP negative treatment 1999- 2009 with Enbrel and Plaquenil methotrexate started ~ 2011 but patient stopped it - flare HCQ restarted 05/2024 effective Code(s): M06.9 - Rheumatoid arthritis, unspecified Category: Medical Qualifiers: Rheumatoid arthritis location: unspecified site Rheumatoid factor presence: with rheumatoid factor Qualified Code(s): M05.9 - Rheumatoid arthritis with rheumatoid factor, unspecified (3) Chronic restrictive lung disease: Code(s): J98.4 - Other disorders of lung Category: Medical (4) JENNIFER (obstructive sleep apnea): Code(s): G47.33 - Obstructive sleep apnea (adult) (pediatric) Category: Medical Plan ALCON as needed low sodium diet consider OFEV if progressive fibrosis, fibrosis stable PFTs in 6 months F/U 6-8 months or sooner if any worsening symptoms Orders: Orders PFT pulmonary function test 6 Months J84.9 - Interstitial pulmonary disease, unspecified Coding Level of Care Code Est Pt Level 4 (94958) Complex EM visit Add On G2211 Diagnoses ILD (interstitial lung disease) J84.9 Rheumatoid arthritis with positive rheumatoid factor, involving unspecified site M05.9 Rheumatoid arthritis location: unspecified site Rheumatoid factor presence: with rheumatoid factor Chronic restrictive lung disease J98.4 JENNIFER (obstructive sleep apnea) G47.33 Time Spent (min) 17
[2025-02-22 09:54] VITALS: BP 138/70; PULSE 72; O2SAT 98; BMI 44.0
--- OUTSIDE RECORDS SUMMARY | 2025-02-22 11:05 | XMS_ITS | Clinical Summary ---
Author Organization [facility] Address [address] [place] [address] Care Team Providers Care Siphoner Name Role Phone TorieMar kerr Navya PARKINSON Primary Care Provider [phone] Surgical History Surgery Date Site/Laterality Comments CHOLECYSTECTOMY PROCEDURE: LAPAROSCOPY, CHOLECYSTECTOMY OOPHORECTOMY PROCEDURE: HISTORICAL OOPHORECTOMY; COMMENT: bilateral secondary to cysts OTHER SURGICAL HISTORY PROCEDURE: ND HYSTEROSCOPY ENDOMETRIAL ABLATION Medical History Medical History Date Comments Rheumatoid arthritis (CMS/HCC V24, CMS/HCC V28) DX:Rheumatoid arthritis (HCC) Ovarian cyst DX:Ovarian cyst Family [...] COVID-19 Vaccine ( season) 2024 04/12/2021, 03/22/2021 Breast Cancer Screening 04/14/2025 04/14/20, 02/06/2022, 09/05/2020, Additional history exists Influenza Vaccine (Season Ended) 2025 HIB Vaccines Aged Out No longer eligi [...] age to complete this topic Meningococcal B Vaccine Aged Out No l onger eligible based on patient's age to complete [...] AM EDT Narrative 04/14/2023 3:40 PM EDT [facility] Diagnostic Imaging Department [address] [place] [address] Patient: ??OLGA DARDEN ?/Age/Sex: 1965 - 57 - F Unit#: ??[id number] ? Location/Status: ??SPDIMAM/REG CLI ? Mnemonic/Ordering Site: ??DIGSC/SPMAM Ordering Physician: ??TAWNYA DAWSON MD [facility] Screening Digital - 04/14/23828 Report Status:Signed EXAM: [facility] Screening Digital EXAM DATE AND TIME: 04/14/2023 8:29 AM HISTORY: ??Screening. COMPARISON: ??02/06/22, 09/05/20, 08/18/19 TECHNIQUE: CC and MLO views of both breasts were obtained using full field digital mammography. Bilateral digital breast tomosynthesis was performed in the MLO projection. Computer aided detection with [employer] 7.2-H and [employer] 3D 3.1 was employed. TISSUE DENSITY: a. [...] Routine screening mammogram BILATERAL in 1 year. 16061, 16687 3341F, 7025F Dictating Physician: ??BRANDI CERVANTES MD Electronically Signed by: ??BRANDI CERVANTES MD Dic Date/Time: ??04/14/23 1539 Sign date/Time: ??04/14/23 1540 Procedure Note Brandi Cervantes MD - 12/07/2023 [facility] Diagnostic Imaging Department [address] [place] [address] Patient: ADELSOOLGA /Age/Sex: 1965 - 57 - F Unit#: [id number] Location/Status: SPDIMAM/REG CLI Mnemonic/Ordering Site: [facility] Ordering Physician: TAWNYA DAWSON MD [facility] Screening Digital - 04/14/23828 Report Status:Signed EXAM: [facility] Screening Digital EXAM DATE AND TIME: 04/14/2023 8:29 AM HISTORY: Screening. COMPARISON: 02/06/22, 09/05/20, 08/18/19 TECHNIQUE: CC and MLO views of both breasts were obtained using fullfield digital mammography. Bilateral digital breast tomosynthesis was performedin the MLO projection. Computer aided detection with [employer] 7.2-H [employer] 3D 3.1 was employed. TISSUE DENSITY: a. [...] Routine screening mammogram BILATERAL in 1 year. 45340, 61951 3341F, 7025F Dictating Physician: BRANDI CERVANTES MD Electronically Signed by: BRANDI CERVANTES MD Dic Date/Time: 04/14/23 1539 Sign date/Time: 04/14/23 1540 Tawnya Dawson MD IMG BI PROCEDURES Final Result * Pap smear (03/18/2021) 03/18/2021 Narrative HISTORICAL TESTING LAB RESULTING AGENCY - 03/20/2021 3:20 PM EDT [id number] THINPREP PAP, IMAGED: NEGATIVE FOR SQUAMOUS INTRAEPITHELIAL LESION AND MALIGNANCY . MELODIEMIK ATKINS(ASCP) (CASE ELECTRONICALLY SIGNED 03 20 2021) RESULT OF APTIMA HIGH RISK HPV ASSAY: HIGH RISK HPV: ??NEGATIVE (SEROTYPES 16,18,31,33,35,39,45,51,52,56,58,59,66,68) COMPLETED ON 2021-03-20 ADEQUACY: SATISFACTORY NONE SOURCE: THINPREP PAP HPV ANY DX: ??REFLEX 16 AND 18, CERVICAL, IMAGED CLINICAL INFORMATION: HPV ANY DIAGNOSIS. HORMONES, PAP HX NEG, Z12.4 us Maisha Guzman DO LAB CYTOLOGY ORDERABLES Final Result HISTORICAL TESTING LAB RESULTING AGENCY from Last 3 Months or Most Recently Relevant to Health Maintenance Care Teams Siphoner Relationship Specialty Start Date End Date Mar Allison NP PCP - General 12/02/23
--- OUTSIDE RECORDS SUMMARY | 2025-02-22 11:06 | XMS_ITS | Patient Health Record ---
Author Organization [facility] Address [address] [place] [address] Care Team Providers Care It Quality Assurance Analyst Name Role Phone Tawnya Dawson Primary Care Provider Gopal Singh Unavailable [phone] Allergies Allergen (clinical drug ingredient) Drug/Non Drug [...] W/U Status Risk Notes Problem Achilles bursitis (422061564) Achilles tendinitis, left leg (M76.62) Active confirmed Unresolved Problem Peroneal tendinitis (10984358) Peroneal tendinitis, left leg (M76.72) Active confirmed Unresolved Plan Of Treatment Pending Test Test Name Order Date X ray : Ankle, left 3V 10/19/2022 X ray : Ankle, right 3V 10/19/2022 Insurance Providers Payer Name Payer Address Payer Phone Subscriber Number Group Number Insured Name Patient Relationship to Insured Coverage Start Date Coverage End Date [employer] [address] [place] [address] [id number] Romelia Rincon Self - patient is the insured Medical (General) History Medical History History ICD Code Arthritis - Rheumatoid Back,Hip,and Knee pain Cataracts Chicken pox covid-19 Depression Gall bladder problems Headaches/Migraines Hearing loss Lung disease Psoriasis/eczema Surgical History Surgery Date(Month/Year) Laparoscopy 1991 cholecystectomy 1992 endometrial ablation oopherectomy 2011
--- OUTSIDE RECORDS SUMMARY | 2025-02-22 11:06 | XMS_ITS ---
Author Organization [facility] Address [address] [place] [address] Care Team Providers Care Rotor Pilot Name Role Phone SAJAN ARTEAGA Unavailable [phone] Encounters Encounter Location Date Provider Diagnosis [facility] [address] [address] 12/16/2023 SAJAN ARTEAGA PLAN OF TREATMENT No Information Progress Notes * Romelia DARDENDOB:[birth year] (58 yo F)Acc No.[id number]:12/16/2023 Patient:??Romelia DARDEN :1965?Age:58 Y?Sex:Fe male Address:[address] [place] [address] * true * Date:??
--- OUTSIDE RECORDS SUMMARY | 2025-02-22 11:06 | XMS_ITS ---
Author Organization [facility] Address [address] [place] [address] Care Team Providers Care Caterpillar Driver Name Role Phone SAJAN ARTEAGA Unavailable [phone] [employer] Unavailable [phone] Encounters Encounter Location Date Provider Diagnosis [address] [place] [address] 12/31/2023 AMERICO MEDRANO PLAN OF TREATMENT No Information Progress Notes * Romelia DARDENDOB:[birth year] (58 yo F)Acc No.[id number]:12/31/2023 Patient:??Romelia DARDEN :1965?Age:58 Y?Sex:Fe male Address:[address] [place] [address] * true * Date:??
--- OUTSIDE RECORDS SUMMARY | 2025-02-22 11:06 | XMS_ITS | Patient Health Record ---
Author Organization [facility] Address [address] [place] [address] Care Team Providers Care Scaling Machine Operator Name Role Phone SAJAN ARTEAGA Unavailable [phone] ALLERGIES Allergen (clinical drug ingredient) Drug/Non Drug Allergy documented on EMR Reaction Allergy Type Onset Date Status clindamycin Clindamycin Unknown Drug Allergy Act eva Penicillin Unknown Drug Allergy Active REASON FOR REFERRAL No Information MEDICATIONS Medication [...] due to excess calories (E66.01) Active confirmed 691412593 Problem Dysuria (R30.0) Active confirmed Dysuri a (71188845) Problem Encounter for general adult medical examination without abnormal findings (Z00.00) Active confirmed 642800110 Problem Back pain, unspecified back location, unspecified back pain laterality, unspecified chronicity (M54.9) Active confirmed Backache (751385931) Problem Hyperlipidemia, unspecified hyperlipidemia type (E78.5) Active confirmed 44455420 Problem Vitamin D deficiency (E55.9) Active confirmed Vitamin D deficiency (20240617) Problem Pre-diabetes (R73.03) Active confirmed Prediabetes (605182122) Problem Rheumatoid arthritis, involving unspecified site, unspecified whether rheumatoid factor present (M06.9) Active confirmed 87318192 Problem Body mass index [BMI] 40.0-44.9, adult (Z68.41) Active confirmed 967782524 Problem Allergy, sequela (T78.40XS) Active confirmed Problem Interstitial lung disease (J84.9) Active confirmed Interstitial lung disease (523608797) PLAN OF TREATMENT Pending Test Test Name [...] Insured Coverage Start Date Coverage End Date [facility] [address] [place] [address] [phone] [id number] Romelia Rincon Self - patient is the insured MEDICATIONS ADMINISTERED Medication Instructions Date of Administration Dosage Notes Semaglutide 10/18/2023 0.25 mL MEDICAL (GENERAL) HISTORY Surgical History Surgery Date(Month/Year) endometrial ablation cholecystectomy
--- OUTSIDE RECORDS SUMMARY | 2025-02-22 11:06 | XMS_ITS ---
Author Organization [facility] Address [address] [place] [address] Care Team Providers Care Clerical Support Specialist Name Role Phone SAJAN ARTEAGA Unavailable [phone] Encounters Encounter Location Date Provider Diagnosis [facility] [address] [place] [address] 12/17/2023 SAJAN ARTEAGA PLAN OF TREATMENT No Information Progress Notes * Romelia DARDENDOB:[birth year] (58 yo F)Acc No.[id number]:12/17/2023 Patient:??Romelia DARDEN :1965?Age:58 Y?Sex:Fe male Address:[address] [place] [address] * true * Date:??
== END 2025-02-22 10:20 | disposition home or self-care (01) ==
LOC: HO.HPS 09:52
PROVIDERS: PCP Internal Medicine; Visit Provider Hospitalist
DX: J84.9 Interstitial pulmonary disease, unspecified (principal); M05.9 Rheumatoid arthritis with rheumatoid factor, unspecified; J98.4 Other disorders of lung; G47.33 Obstructive sleep apnea (adult) (pediatric)
CPT/HCPCS: 99214

== ENCOUNTER 2025-03-07 08:40 | Outpatient (AMB) | payer OTHER, SELFPAY ==
--- NOTE | 2025-03-07 08:46 | A.OFFVIS_ITS ---
Vital Signs 03/07/25 08:55 Height 5 ft 7 in Weight 280 lb 10.375 oz BMI 44.0 BP 132/80 Blood Pressure Location Rt brachial Position Sitting Pulse 81 Pulse Source Pulse Oximeter Pulse Oximetry (%) 98 Oxygen Delivery Method Room Air Intake Visit Reasons: RA/OA Intake Note: Patient presents for RA/OA follow up. Allergies clindamycin Adverse Reaction (Severe, Verified 03/07/25 08:52) Hives Iodinated Contrast Media Adverse Reaction (Severe, Verified 03/07/25 08:52) Vomiting Penicillins Adverse Reaction (Severe, Verified 03/07/25 08:52) Diarrhea Medication List - Last Reconciled 03/07/25 by Laura Lomax MD acetaminophen ER 650 mg PO Q8H albuterol sulfate 90 mcg/actuation 2 puffs inhalation Q6H PRN albuterol sulfate 2.5 mg (3 mL) inhalation Q6H PRN 30 days meclizine 12.5 mg PO TID PRN naproxen sodium (Flanax (naproxen)) 220 mg PO Q8H PRN nebulizers As directed HPI Comments Details: Patient is a 59-year-old female with JENNIFER, polyarticular osteoarthritis and rheumatoid arthritis complicated by ILD here today for follow up Interval History: Patient last seen 09/12/[address] Thomas. At that time she was following up for her seronegative rheumatoid arthritis with connective tissue disease related ILD. She was taking hydroxychloroquine 200 mg twice a day. Had overall improvement in her joint pain but was complain of bilateral knee pain. Today, She stopped hydroxychloroquine. Did not feel that it was effective Currently complaining of bilateral knee pain. Has not used topical diclofenac in the past Used to get knee injections but hasn't in a while Rheumatologic History: Seronegative rheumatoid arthritis/connective tissue disease related ILD +DIYA RF, CCP negative treatment 1999- 2009 with Enbrel and Plaquenil methotrexate started ~ 2011 but patient stopped it - flare HCQ restarted 05/2024 effective - self discontinued 12/2024 (not effective) Current Rheumatology Medication(s): [facility] Medical History Chronic restrictive lung disease Rheumatoid arthritis ILD (interstitial lung disease) Surgical History History of cataract surgery History of lung biopsy History of cholecystectomy History of bilateral oophorectomies Family History Mother Rheumatoid arthritis Sister Osteoarthritis Hypertension Brother Osteoarthritis Skin cancer Father Type 2 diabetes mellitus Osteoarthritis Hypertension Social History Alcohol intake: current Patient Tobacco Use Status: Never used Tobacco Review of Systems Const Details: Review of Systems Constitutional: Denies fever, chills, weight loss ENT: Denies vision changes, eye pain or eye redness, dental caries, dry mouth GI: Denies nausea, vomiting, diarrhea, abdominal pain, change in BM Pulm: Denies SOB, MUSE, hemoptysis, wheezing Cards: Denies chest pain, palpitations Skin: Denies Raynaud's, rash, nail changes, photosensitivity, AUTO RESEARCH ENGINEER: Denies headaches, weakness, paresthesias, recurrent falls MSK: as per HPI All other systems reviewed and are unremarkable except noted above Physical Exam Vital Signs: Last Vital Signs Pulse 81 03/07/25 08:55 BP 132/80 03/07/25 08:55 Pulse Ox 98 03/07/25 08:55 Oxygen Delivery Method Room Air 03/07/25 08:55 BMI result Body Mass Index 44.0 Vital signs reviewed Physical Examination CONSTITUITIONAL Patient alert and cooperative. Well appearing and in no apparent painful distress HEENT Conjunctiva and sclera clear. ?Pupils equal round and reactive to light. ?No lymphadenopathy. ? CHEST/RESPIRATORY SYSTEM Normal respiratory effort and able to speak in complete sentences. ?Clear to auscultation bilaterally. ?No crackles, rales, rhonchi, wheezes heard. CARDIAC SYSTEM Regular rate and rhythm. ?S1 and S2 heard no murmurs. ?Radial pulses intact bilaterally MSK Hands: ?Able to make a fist. No synovitis noted to the MCPs, PIPs or DIPs. ?No tenderness to palpation of these joints. No deformities noted. ? Wrists: ?Full range of motion at the wrists without pain. ?No tenderness to palpation or synovitis noted to the wrists. Elbows: Full range of motion without pain. No tenderness, weakness, swelling, increased warmth or erythema. Shoulders: Full range of active range of motion without pain. No tenderness, we akness, swelling, increased warmth or erythema. Knees: ?Full range of motion. ?No tenderness, swelling, increased warmth or erythema.?Bilateral crepitations Ankles: Full range of motion. ?No tenderness, swelling, increased warmth or erythema.? Feet: ?Negative squeeze test. ?No tenderness to palpation or swelling of the MTPs. Tender points:?No tenderness to palpation of the bilateral trapezius, supraspinatus, greater trochanters, anterior costochondral junctions, bilateral gluteal areas, bilateral suboccipital muscle insertions SKIN Skin intact without rashes. Results Reviewed Results Reviewed: Laboratory Tests 05/19/23 05/11/24 11:00 14:56 WBC 8.7 RBC 4.66 Hgb 13.3 Hct 40.7 Plt Count 301 ESR 27 H Sodium 139 Potassium 3.9 Chloride 104 Carbon Dioxide 27 BUN 15 Creatinine 0.92 AST 26 32 H ALT 24 38 H Total Creatine Kinase 159 H C-Reactive Protein 1.62 H Immunology labs 05/19/23 04/13/24 11:00 09:58 Rheumatoid Factor < 13.0 Cycl Citrul Peptide IgG <[address] Chest 12/2024 CHEST: THYROID: The thyroid is unremarkable. LUNGS: Again seen are thickened interlobular septae at the peripheral aspects of both lungs, greatest at the bases, consistent with fibrosis. There are small areas of honeycombing in the azygoesophageal recess of the right lower lobe. There are no groundglass opacities, pulmonary nodules, or bronchiectasis. No significant emphysematous changes. The appearance is not significantly changed from the prior study. MEDIASTINUM: There is no mediastinal lymphadenopathy. DAVE: Evaluation of the hilar regions is limited by lack of intravenous contrast material. CARDIOVASCULATURE: The heart is normal in size. There is no pericardial effusion. The thoracic aorta is normal in caliber. DEGREE OF CORONARY CALCIFICATION: none PLEURA: There is no pleural effusion. No pneumothorax. MAIN AIRWAYS: The mainstem bronchi and proximal branches are patent. AXILLA: There is no axillary lymphadenopathy. BONES AND SOFT TISSUES: Unremarkable UPPER ABDOMEN: The visualized portions of the liver, spleen, and adrenals have an unremarkable unenhanced appearance. IMPRESSION: Mild pulmonary fibrosis as described, without significant change from the prior study. Assessment & Plan Assessment & Plan (1) Rheumatoid arthritis: Comment: +DIYA RF, CCP negative treatment 1999- 2009 with Enbrel and Plaquenil methotrexate started ~ 2011 but patient stopped it - flare HCQ restarted 05/2024 effective Code(s): M06.9 - Rheumatoid arthritis, unspecified Category: Medical Qualifiers: Rheumatoid arthritis location: unspecified site Rheumatoid factor presence: with rheumatoid factor Qualified Code(s): M05.9 - Rheumatoid arthritis with rheumatoid factor, unspecified Plan: #Seronegative RA Patient is a 59-year-old female with seronegative rheumatoid arthritis complicated by ILD here today for follow up. Currently in remission. Will continue to monitor off DMARDs. Plan - Labs today: CBC, CMP, ESR, CRP - RTC 6 months (2) ILD (interstitial lung disease): Comment: cellular NSIP/RA related ILD Code(s): J84.9 - Interstitial pulmonary disease, unspecified Category: Medical Plan: #ILD Patient with a ILD likely related to her seronegative rheumatoid arthritis/undifferentiated connective tissue disease. Currently stable follow ing up with pulmonology. Repeat CT scan done December 2024 shows stable disease. Discussed that with patient not being on DMARDs there may be a possibility that her ILD may progress. If that does happen we will need to consider restarting medication. Plan - Continue pulm follow up (3) Bilateral primary osteoarthritis of knee: Code(s): M17.0 - Bilateral primary osteoarthritis of knee Category: Medical Plan: #Bilateral knee OA Bilateral knee osteoarthritis. Recommending topical diclofenac 4 times a day. Also recommended swimming and cycling as exercise options. Plan - Topical diclofenac 4 times a day - Consider steroid injection in the future - PT referral Plan I spent 30 minutes reviewing the record and labs, taking a history, examining the patient, discussing the treatment plan, ordering diagnostic work up and documenting in the medical record Orders: Orders Erythrocyte Sedimentation Rate Today M05.9 - Rheumatoid arthritis with rheumatoid factor, unspecified PT Evaluation and Treatment Today M17.0 - Bilateral primary osteoarthritis of knee Complete Blood Count Auto Diff Today M05.9 - Rheumatoid arthritis with rheumatoid factor, unspecified Comprehensive Met. Panel Today M05.9 - Rheumatoid arthritis with rheumatoid factor, unspecified C Reactive Protein Today M05.9 - Rheumatoid arthritis with rheumatoid factor, unspecified Medications: New diclofenac sodium 1% (Arthritis Pain (diclofenac)) apply to bilateral knees 4 times a day 4 grams topical QID 100 grams 5RF M17.0 - Bilateral primary osteoarthritis of knee Coding Level of Care Code Est Pt Level 4 (38798) Complex EM visit Add On G2211 Diagnoses Rheumatoid arthritis with positive rheumatoid factor, involving unspecified site M05.9 Rheumatoid arthritis location: unspecified site Rheumatoid factor presence: with rheumatoid factor ILD (interstitial lung disease) J84.9 Bilateral primary osteoarthritis of knee M17.0
[2025-03-07 08:55] VITALS: BP 132/80; PULSE 81; O2SAT 98; BMI 44.0
--- OUTSIDE RECORDS SUMMARY | 2025-03-07 08:58 | XMS_ITS | Patient Health Record ---
Author Organization [facility] Address [address] [place] [address] Care Team Providers Care Wastewater Treatment Plant Instructor Name Role Phone Tawnya Dawson Primary Care Provider Gopal Singh Unavailable [phone] Allergies Allergen (clinical drug ingredient) Drug/Non Drug [...] W/U Status Risk Notes Problem Achilles bursitis (575953343) Achilles tendinitis, left leg (M76.62) Active confirmed Unresolved Problem Peroneal tendinitis (22142669) Peroneal tendinitis, left leg (M76.72) Active confirmed Unresolved Plan Of Treatment Pending Test Test Name Order Date X ray : Ankle, left 3V 10/19/2022 X ray : Ankle, right 3V 10/19/2022 Insurance Providers Payer Name Payer Address Payer Phone Subscriber Number Group Number Insured Name Patient Relationship to Insured Coverage Start Date Coverage End Date [facility] [address] [place] [address] [id number] Romelia Rincon Self - patient is the insured Medical (General) History Medical History History ICD Code Arthritis - Rheumatoid Back,Hip,and Knee pain Cataracts Chicken pox covid-19 Depression Gall bladder problems Headaches/Migraines Hearing loss Lung disease Psoriasis/eczema Surgical History Surgery Date(Month/Year) Laparoscopy 1991 cholecystectomy 1992 endometrial ablation oopherectomy 2011
--- OUTSIDE RECORDS SUMMARY | 2025-03-07 08:58 | XMS_ITS ---
Author Organization [facility] Address [address] [place] [address] Care Team Providers Care Gym Manager Name Role Phone SAJAN ARTEAGA Unavailable [phone] Encounters Encounter Location Date Provider Diagnosis [facility] [address] [place] [address] 12/17/2023 SAJAN ARTEAGA PLAN OF TREATMENT No Information Progress Notes * Romelia DARDENDOB:[birth year] (58 yo F)Acc No.[id number]:12/17/2023 Patient:??Romelia DARDEN :1965?Age:58 Y?Sex:Fe male Address:[address] [place] [address] * true * Date:??
--- OUTSIDE RECORDS SUMMARY | 2025-03-07 08:58 | XMS_ITS ---
Author Organization [facility] Address [address] [place] [address] Care Team Providers Care Loom Fixer Apprentice Name Role Phone SAJAN ARTEAGA Unavailable [phone] [employer] Unavailable [phone] Encounters Encounter Location Date Provider Diagnosis [address] [place] [address] 12/31/2023 [employer] MEDRANO PLAN OF TREATMENT No Information Progress Notes * Romelia DARDENDOB:[birth year] (58 yo F)Acc No.[id number]:12/31/2023 Patient:??Romelia DARDEN :1965?Age:58 Y?Sex:Fe male Address:[address] [place] [address] * true * Date:??
--- OUTSIDE RECORDS SUMMARY | 2025-03-07 08:58 | XMS_ITS ---
Author Organization [facility] Address [address] [place] [address] Care Team Providers Care Senior Android Software Engineer Name Role Phone SAJAN ARTEAGA Unavailable [phone] Encounters Encounter Location Date Provider Diagnosis [facility] [address] [address] 12/16/2023 SAJAN ARTEAGA PLAN OF TREATMENT No Information Progress Notes * Romelia DARDENDOB:[birth year] (58 yo F)Acc No.[id number]:12/16/2023 Patient:??Romelia DARDEN :1965?Age:58 Y?Sex:Fe male Address:[address] [place] [address] * true * Date:??
--- OUTSIDE RECORDS SUMMARY | 2025-03-07 08:58 | XMS_ITS | Clinical Summary ---
Author Organization [facility] it Address [address] [place] [address] Care Team Providers Care Programmer Engineering And Scientific Name Role Phone TorieMar kerr Navya PARKINSON Primary Care Provider [phone] Surgical History Surgery Date Site/Laterality Comments CHOLECYSTECTOMY PROCEDURE: LAPAROSCOPY, CHOLECYSTECTOMY OOPHORECTOMY PROCEDURE: HISTORICAL OOPHORECTOMY; COMMENT: bilateral secondary to cysts OTHER SURGICAL HISTORY PROCEDURE: [place] HYSTEROSCOPY ENDOMETRIAL ABLATION Medical History Medical History [...] AM EDT Narrative 04/14/2023 3:40 PM EDT [facility] Diagnostic Imaging Department [address] [place] [address] Patient: ??OLGA DARDEN ?/Age/Sex: 1965 - 57 - F Unit#: ??[id number] ? Location/Status: ??SPDIMAM/REG CLI ? Mnemonic/Ordering Site: ??DIGSC/SPMAM Ordering Physician: ??TAWNYA DAWSON MD [facility] Screening Digital - 04/14/23828 Report Status:Signed EXAM: [facility] Screening Digital EXAM DATE AND TIME: 04/14/2023 8:29 AM HISTORY: ??Screening. COMPARISON: ??02/06/22, 09/05/20, 08/18/19 TECHNIQUE: CC and MLO views of both breasts were obtained using full field digital mammography. Bilateral digital breast tomosynthesis was performed in the MLO projection. Computer aided detection with Tealet 7.2-H and Force-A 3D 3.1 was employed. TISSUE DENSITY: a. [...] Routine screening mammogram BILATERAL in 1 year. 63496, 07028 3341F, 7025F Dictating Physician: ??BRANDI CERVANTES MD Electronically Signed by: ??BRANDI CERVANTES MD Dic Date/Time: ??04/14/23 1539 Sign date/Time: ??04/14/23 1540 Procedure Note Brandi Cervantes MD - 12/07/2023 [facility] Diagnostic Imaging Department [address] [place] [address] Patient: ADELSOOLGA /Age/Sex: 1965 - 57 - F Unit#: [id number] Location/Status: SPDIMAM/REG CLI Mnemonic/Ordering Site: [facility] Ordering Physician: TAWNYA DAWSON MD [facility] Screening Digital - 04/14/23828 Report Status:Signed EXAM: [facility] Screening Digital EXAM DATE AND TIME: 04/14/2023 8:29 AM HISTORY: Screening. COMPARISON: 02/06/22, 09/05/20, 08/18/19 TECHNIQUE: CC and MLO views of both breasts were obtained using fullfield digital mammography. Bilateral digital breast tomosynthesis was performedin the MLO projection. Computer aided detection with Tealet 7.2-H andForce-A 3D 3.1 was employed. TISSUE DENSITY: a. [...] Routine screening mammogram BILATERAL in 1 year. 02061, 25294 3341F, 7025F Dictating Physician: BRANDI CERVANTES MD Electronically Signed by: BRANDI CERVANTES MD Dic Date/Time: 04/14/23 1539 Sign date/Time: 04/14/23 1540 Tawnya Dawson MD IMG BI PROCEDURES Final Result * Pap smear (03/18/2021) 03/18/2021 Narrative HISTORICAL TESTING LAB RESULTING AGENCY - 03/20/2021 3:20 PM EDT [id number] THINPREP PAP, IMAGED: NEGATIVE FOR SQUAMOUS INTRAEPITHELIAL [...] Recently Relevant to Health Maintenance Care Teams Programmer Engineering And Scientific Relationship Specialty Start Date End Date Mar Allison NP PCP - General 12/02/23
--- OUTSIDE RECORDS SUMMARY | 2025-03-07 08:58 | XMS_ITS | Patient Health Record ---
Author Organization [facility] Address [address] [place] [address] Care Team Providers Care Stretcher Helper Name Role Phone SAJAN ARTEAGA Unavailable [phone] ALLERGIES Allergen (clinical drug ingredient) Drug/Non Drug [...] due to excess calories (E66.01) Active confirmed 150650142 Problem Dysuria (R30.0) Active confirmed Dysuri a (84467134) Problem Encounter for general adult medical examination without abnormal findings (Z00.00) Active confirmed 818096288 Problem Back pain, unspecified back location, unspecified back pain laterality, unspecified chronicity (M54.9) Active confirmed Backache (644106055) Problem Hyperlipidemia, unspecified hyperlipidemia type (E78.5) Active confirmed 79380172 Problem Vitamin D deficiency (E55.9) Active confirmed Vitamin D deficiency (91942748) Problem Pre-diabetes (R73.03) Active confirmed Prediabetes (514653041) Problem Rheumatoid arthritis, involving unspecified site, unspecified whether rheumatoid factor present (M06.9) Active confirmed 04192065 Problem Body mass index [BMI] 40.0-44.9, adult (Z68.41) Active confirmed 063638040 Problem Allergy, sequela (T78.40XS) Active confirmed Problem Interstitial lung disease (J84.9) Active confirmed Interstitial lung disease (276589929) PLAN OF TREATMENT Pending Test Test Name [...] Insured Coverage Start Date Coverage End Date [facility] [address] [facility] [place] [address] [phone] [id number] Romelia Rincon Self - patient is the insured MEDICATIONS ADMINISTERED Medication Instructions Date of Administration Dosage Notes Semaglutide 10/18/2023 0.25 mL MEDICAL (GENERAL) HISTORY Surgical History Surgery Date(Month/Year) endometrial ablation cholecystectomy
== END 2025-03-07 09:23 | disposition home or self-care (01) ==
LOC: HO.RHE 08:40
PROVIDERS: PCP Internal Medicine; Visit Provider Student in an Organized Health Care Education/Training Program
DX: M05.79 Rheumatoid arthritis with rheumatoid factor of multiple sites without organ or systems involvement (principal); J84.9 Interstitial pulmonary disease, unspecified; M17.0 Bilateral primary osteoarthritis of knee; Z79.899 Other long term (current) drug therapy
CPT/HCPCS: 99214

== ENCOUNTER 2025-03-07 09:28 | Outpatient (REF) | payer OTHER, SELFPAY ==
[2025-03-07 09:59] LABS: MANUAL DIFF FLAG NO
--- OUTSIDE RECORDS SUMMARY | 2025-03-07 10:13 | XMS_ITS | Clinical Summary ---
Author Organization [facility] it Address [address] [place] [address] Care Team Providers Care Equipment Mechanic Name Role Phone TorieMar ekrr Navya PARKINSON Primary Care Provider [phone] Surgical History Surgery Date Site/Laterality Comments CHOLECYSTECTOMY PROCEDURE: LAPAROSCOPY, CHOLECYSTECTOMY OOPHORECTOMY PROCEDURE: HISTORICAL OOPHORECTOMY; COMMENT: bilateral secondary to cysts OTHER SURGICAL HISTORY PROCEDURE: [place] HYSTEROSCOPY ENDOMETRIAL ABLATION Medical History Medical History [...] AM EDT Narrative 04/14/2023 3:40 PM EDT [facility] Diagnostic Imaging Department [address] [place] [address] Patient: ??OLGA DARDEN ?/Age/Sex: 1965 - 57 - F Unit#: ??[id number] ? Location/Status: ??SPDIMAM/REG CLI ? Mnemonic/Ordering Site: [...] the MLO projection. Computer aided detection with Tarari 7.2-H and Relatient 3D 3.1 was employed. TISSUE DENSITY: a. [...] Routine screening mammogram BILATERAL in 1 year. 42030, 66212 3341F, 7025F Dictating Physician: ??BRANDI CERVANTES MD Electronically Signed by: ??BRANDI CERVANTES MD Dic Date/Time: ??04/14/23 1539 Sign date/Time: ??04/14/23 1540 Procedure Note Brandi Cervantes MD - 12/07/2023 [facility] Diagnostic Imaging Department [address] [place] [address] Patient: ADELSOOLGA /Age/Sex: 1965 - 57 - F Unit#: [id number] Location/Status: SPDIMAM/REG CLI Mnemonic/Ordering Site: [facility] Ordering Physician: TAWNYA DAWSON MD [facility] Screening Digital - 04/14/23828 Report Status:Signed EXAM: [facility] Screening Digital EXAM DATE AND TIME: 04/14/2023 8:29 AM HISTORY: Screening. COMPARISON: 02/06/22, 09/05/20, 08/18/19 TECHNIQUE: CC and MLO views of both breasts were obtained using fullfield digital mammography. Bilateral digital breast tomosynthesis was performedin the MLO projection. Computer aided detection with Tarari 7.2-H andRelatient 3D 3.1 was employed. TISSUE DENSITY: a. [...] Routine screening mammogram BILATERAL in 1 year. 80275, 16510 3341F, 7025F Dictating Physician: BRANDI CERVANTES MD Electronically Signed by: BRANDI CERVANTES MD Dic Date/Time: 04/14/23 1539 Sign date/Time: 04/14/23 1540 Tawnya Dawson MD IMG BI PROCEDURES Final Result * Pap smear (03/18/2021) 03/18/2021 Narrative HISTORICAL TESTING LAB RESULTING AGENCY - 03/20/2021 3:20 PM EDT [id number] THINPREP PAP, IMAGED: NEGATIVE FOR SQUAMOUS INTRAEPITHELIAL [...] Recently Relevant to Health Maintenance Care Teams Equipment Mechanic Relationship Specialty Start Date End Date Mar Allison NP PCP - General 12/02/23
[2025-03-07 10:17] LABS: Basophils Absolute Auto 0.1 X10*3/uL (0.0-0.2); Basophils Percent Auto 0.6 % (0-2); Eosinophils Absolute Auto 0.3 X10*3/uL (0.0-0.4); Eosinophils Percent Auto 3.8 % (0-4); Hematocrit 39.7 % (37.0-47.0); Hemoglobin 12.8 g/dl (12.0-16.0); Imm Gran Abs Auto 0.03 X10*3/uL (0.00-0.03); Imm Gran Pct Auto 0.4 % (0.0-0.4); Lymphocytes Absolute Auto 3.2 X10*3/uL (1.2-4.9); Lymphocytes Percent Auto 38.5 % (20-40); Mean Corpuscular HGB Conc 32.2 g/dl (31.0-35.0); Mean Corpuscular Hemoglobin 28.4 pg (27.0-33.0); Mean Platelet Volume 10.2 fL (9.4-12.3); Monocytes Absolute Auto 0.5 X10*3/uL (0.1-1.2); Monocytes Percent Auto 6.4 % (2-11); Neutrophils Absolute Auto 4.1 x10*3/uL (2.0-8.3); Neutrophils Percent Auto 50.3 % (45-73); Platelet Count 308 X10*3/uL (160-400); Red Blood Count 4.51 X10*6/uL (4.20-5.50); Red Cell Distribution Width 13.2 % (11.0-16.0); White Blood Count 8.2 X10*3/uL (4.8-10.8)
[2025-03-07 10:24] LABS: Alanine Aminotransferase 22 U/L (0-31); Albumin Level 4.2 g/dL (3.5-5.0); Alkaline Phosphatase 47 U/L (39-117); Anion Gap 10 (12-20); Aspartate Amino Transferase 34 U/L (5-31); Bilirubin Total 0.4 mg/dL (0.0-1.0); Blood Urea Nitrogen 16 mg/dL (9-16); C Reactive Protein 1.21 mg/dL (< or = 0.50); Carbon Dioxide 28 mmol/L (22-29); Chloride 104 mmol/L (96-108); Estimated Glomerular Filt Rate > 60; Glucose Random 102 mg/dL (60-115); Potassium 4.2 mmol/L (3.3-5.1); Sodium 138 mmol/L (135-145); Total Protein 8.5 g/dL (6.5-8.0)
[2025-03-07 11:11] LABS: Erythrocyte Sedimentation Rate 23 MM/HR (0-20)
== END 2025-03-07 09:29 | disposition home or self-care (01) ==
LOC: HO.10HDL 09:28
PROVIDERS: Visit Provider Student in an Organized Health Care Education/Training Program
DX: M05.9 Rheumatoid arthritis with rheumatoid factor, unspecified (principal)
CPT/HCPCS: 36415; 80053; 85025; 85652; 86140

== ENCOUNTER 2025-08-15 08:40 | Outpatient (REF) | payer OTHER, SELFPAY ==
--- OUTSIDE RECORDS SUMMARY | 2025-06-19 05:45 | XMS_ITS ---
Author Organization [facility] [address] Address [address] [place] [address] Care Team Providers Care Faith Healer Name Role Phone SAJAN ARTEAGA Unavailable [phone] AMERICO MEDRANO Unavailable [phone] Medications Medication SIG (Take, Route, Frequency, Duration) Notes Start Date End Date Status Benadryl Allergy 25 MG 1 tablet at bedti me as needed Orally Once a day Not-Taking Azithromycin 250 MG as directed Orally daily; Duration: 5 days Take 2 tablets on day 1, then take 1 tablet for 4 days 06/06/2025 Active Benzonatate 150 MG 1 capsule as needed for cough Orally Three times a day; Duration: 7 days 06/06/2025 Active Zepbound 2.5 MG/0.5ML 2.5 mg weekly Subcutaneous Weekly; Duration: 30 days Active Pantoprazole Sodium 40 MG 1 tablet 1/2 to 1 hour before morning meal Orally Once a day; Duration: 90 days Active buPROPion HCl ER (XL) 150 MG 1 tablet twice a day Orally twice a day; Duration: 30 days 05/22/2025 Active Meclizine HCl 12.5 MG 1 tablet as needed Orally three times daily; Duration: 30 days 02/25/2022 Active Wegovy 1.7 MG/0.75ML 1.7mg Subcutaneous weekly; Duration: 30 days Not-Taking Albuterol Sulfate HFA 108 (90 Base) MCG/ACT 1 puff as needed Inhalation every 4 hrs Active Diclofenac 1% Gel OTC Active Encounters Encounter Location Date Provider Diagnosis [facility] [address] [address] 06/19/2025 AMERICO MEDRANO Hyperlipidemia, unspecified hyperlipidemia type E78.5 ; Morbid (severe) obesity due to excess calories E66.01 ; Body mass index [BMI] 40.0-44.9, adult Z68.41 ; Interstitial lung disease J84.9 ; Benign paroxysmal positional vertigo, unspecified laterality H81.10 ; Rheumatoid arthritis, involving unspecified site, unspecified whether rheumatoid factor present M06.9 ; Pre-diabetes R73.03 ; Gastroesophageal reflux disease with esophagitis without hemorrhage K21.00 ; Encounter for examination of blood pressure without abnormal findings Z01.30 and Urinary incontinence with continuous leakage N39.45 Assessments Encounter Date Diagnosis (ICD Code) Assessment Notes Treatment Notes Treatment Clinical Notes Section Notes 06/19/2025 Hyperlipidemia, unspecified hyperlipidemia type (ICD-10 - E78.5) Acute Concerns/Problem List: 06/19/2025 Please contact to have updated colorectal screening _update comprehensive labs Start Wellbutrin Start pantoprazole Start Zepbound 2.5 mg Urogynecology referral Total time spent today was 30 minutes of which greater than 50% was spent on coordinating and counseling Patient has been found to be obese with a BMI of (30). Patient has class (1) obesity. We are a board certified obesity and weight management practice Of note, some information is being carried forward from prior records for informational purposes only and is being cited so that efficiency, safety and quality of the patient's care is not compromised This note was prepared using voice recognition software and direct typing Please excuse inadvertent green house manager or typing errors, or uncorrected word substitutions Although every attempt has been made by the provider to proofread this document, occasional misspellings and typographical errors may still be present Due to the previous pandemic, and the use of personal protective equipment (PPE) This may decrease voice recognition accuracy Inadvertent green house manager errors may occur 06/19/2025 Morbid (severe) obesity due to excess calories (ICD-10 - E66.01) Acute Concerns/Problem List: 06/19/2025 Please contact to have updated colorectal screening _update comprehensive labs Start Wellbutrin Start pantoprazole Start Zepbound 2.5 mg Urogynecology referral Total time spent today was 30 minutes of which greater than 50% was spent on coordinating and counseling Patient has been found to be obese with a BMI of (30). Patient has class (1) obesity. We are a board certified obesity and weight management practice Of note, some information is being carried forward from prior records for informational purposes only and is being cited so that efficiency, safety and quality of the patient's care is not compromised This note was prepared using voice recognition software and direct typing Please excuse inadvertent green house manager or typing errors, or uncorrected word substitutions Although every attempt has been made by the provider to proofread this document, occasional misspellings and typographical errors may still be present Due to the previous pandemic, and the use of personal protective equipment (PPE) This may decrease voice recognition accuracy Inadvertent green house manager errors may occur 06/19/2025 Body mass index [BMI] 40.0-44.9, adult (ICD-10 - Z68.41) Acute Concerns/Problem List: 06/19/2025 Please contact to have updated colorectal screening _update comprehensive labs Start Wellbutrin Start pantoprazole Start Zepbound 2.5 mg Urogynecology referral Total time spent today was 30 minutes of which greater than 50% was spent on coordinating and counseling Patient has been found to be obese with a BMI of (30). Patient has class (1) obesity. We are a board certified obesity and weight management practice Of note, some information is being carried forward from prior records for informational purposes only and is being cited so that efficiency, safety and quality of the patient's care is not compromised This note was prepared using voice recognition software and direct typing Please excuse inadvertent green house manager or typing errors, or uncorrected word substitutions Although every attempt has been made by the provider to proofread this document, occasional misspellings and typographical errors may still be present Due to the previous pandemic, and the use of personal protective equipment (PPE) This may decrease voice recognition accuracy Inadvertent green house manager errors may occur 06/19/2025 Interstitial lung disease (ICD-10 - J84.9) Acute Concerns/Problem List: 06/19/2025 Please contact to have updated colorectal screening _update comprehensive labs Start Wellbutrin Start pantoprazole Start Zepbound 2.5 mg Urogynecology referral Total time spent today was 30 minutes of which greater than 50% was spent on coordinating and counseling Patient has been found to be obese with a BMI of (30). Patient has class (1) obesity. We are a board certified obesity and weight management practice Of note, some information is being carried forward from prior records for informational purposes only and is being cited so that efficiency, safety and quality of the patient's care is not compromised This note was prepared using voice recognition software and direct typing Please excuse inadvertent green house manager or typing errors, or uncorrected word substitutions Although every attempt has been made by the provider to proofread this document, occasional misspellings and typographical errors may still be present Due to the previous pandemic, and the use of personal protective equipment (PPE) This may decrease voice recognition accuracy Inadvertent green house manager errors may occur 06/19/2025 Benign paroxysmal positional vertigo, unspecified laterality (ICD-10 - H81.10) Acute Concerns/Problem List: 06/19/2025 Please contact to have updated colorectal screening _update comprehensive labs Start Wellbutrin Start pantoprazole Start Zepbound 2.5 mg Urogynecology referral Total time spent today was 30 minutes of which greater than 50% was spent on coordinating and counseling Patient has been found to be obese with a BMI of (30). Patient has class (1) obesity. We are a board certified obesity and weight management practice Of note, some information is being carried forward from prior records for informational purposes only and is being cited so that efficiency, safety and quality of the patient's care is not compromised This note was prepared using voice recognition software and direct typing Please excuse inadvertent green house manager or typing errors, or uncorrected word substitutions Although every attempt has been made by the provider to proofread this document, occasional misspellings and typographical errors may still be present Due to the previous pandemic, and the use of personal protective equipment (PPE) This may decrease voice recognition accuracy Inadvertent green house manager errors may occur 06/19/2025 Rheumatoid arthritis, involving unspecified site, unspecified whether rheumatoid factor present (ICD-10 - M06.9) Acute Concerns/Problem List: 06/19/2025 Please contact to have updated colorectal screening _update comprehensive labs Start Wellbutrin Start pantoprazole Start Zepbound 2.5 mg Urogynecology referral Total time spent today was 30 minutes of which greater than 50% was spent on coordinating and counseling Patient has been found to be obese with a BMI of (30). Patient has class (1) obesity. We are a board certified obesity and weight management practice Of note, some information is being carried forward from prior records for informational purposes only and is being cited so that efficiency, safety and quality of the patient's care is not compromised This note was prepared using voice recognition software and direct typing Please excuse inadvertent green house manager or typing errors, or uncorrected word substitutions Although every attempt has been made by the provider to proofread this document, occasional misspellings and typographical errors may still be present Due to the previous pandemic, and the use of personal protective equipment (PPE) This may decrease voice recognition accuracy Inadvertent green house manager errors may occur 06/19/2025 Pre-diabetes (ICD-10 - R73.03) Acute Concerns/Problem List: 06/19/2025 Please contact to have updated colorectal screening _update comprehensive labs Start Wellbutrin Start pantoprazole Start Zepbound 2.5 mg Urogynecology referral Total time spent today was 30 minutes of which greater than 50% was spent on coordinating and counseling Patient has been found to be obese with a BMI of (30). Patient has class (1) obesity. We are a board certified obesity and weight management practice Of note, some information is being carried forward from prior records for informational purposes only and is being cited so that efficiency, safety and quality of the patient's care is not compromised This note was prepared using voice recognition software and direct typing Please excuse inadvertent green house manager or typing errors, or uncorrected word substitutions Although every attempt has been made by the provider to proofread this document, occasional misspellings and typographical errors may still be present Due to the previous pandemic, and the use of personal protective equipment (PPE) This may decrease voice recognition accuracy Inadvertent green house manager errors may occur 06/19/2025 Gastroesophageal reflux disease with esophagitis without hemorrhage (ICD-10 - K21.00) Acute Concerns/Problem List: 06/19/2025 Please contact to have updated colorectal screening _update comprehensive labs Start Wellbutrin Start pantoprazole Start Zepbound 2.5 mg Urogynecology referral Total time spent today was 30 minutes of which greater than 50% was spent on coordinating and counseling Patient has been found to be obese with a BMI of (30). Patient has class (1) obesity. We are a board certified obesity and weight management practice Of note, some information is being carried forward from prior records for informational purposes only and is being cited so that efficiency, safety and quality of the patient's care is not compromised This note was prepared using voice recognition software and direct typing Please excuse inadvertent green house manager or typing errors, or uncorrected word substitutions Although every attempt has been made by the provider to proofread this document, occasional misspellings and typographical errors may still be present Due to the previous pandemic, and the use of personal protective equipment (PPE) This may decrease voice recognition accuracy Inadvertent green house manager errors may occur 06/19/2025 Encounter for examination of blood pressure without abnormal findings (ICD-10 - Z01.30) Acute Concerns/Problem List: 06/19/2025 Please contact to have updated colorectal screening _update comprehensive labs Start Wellbutrin Start pantoprazole Start Zepbound 2.5 mg Urogynecology referral Total time spent today was 30 minutes of which greater than 50% was spent on coordinating and counseling Patient has been found to be obese with a BMI of (30). Patient has class (1) obesity. We are a board certified obesity and weight management practice Of note, some information is being carried forward from prior records for informational purposes only and is being cited so that efficiency, safety and quality of the patient's care is not compromised This note was prepared using voice recognition software and direct typing Please excuse inadvertent green house manager or typing errors, or uncorrected word substitutions Although every attempt has been made by the provider to proofread this document, occasional misspellings and typographical errors may still be present Due to the previous pandemic, and the use of personal protective equipment (PPE) This may decrease voice recognition accuracy Inadvertent green house manager errors may occur 06/19/2025 Urinary incontinence with continuous leakage (ICD-10 - N39.45) Acute Concerns/Problem List: 06/19/2025 Please contact to have updated colorectal screening _update comprehensive labs Start Wellbutrin Start pantoprazole Start Zepbound 2.5 mg Urogynecology referral Total time spent today was 30 minutes of which greater than 50% was spent on coordinating and counseling Patient has been found to be obese with a BMI of (30). Patient has class (1) obesity. We are a board certified obesity and weight management practice Of note, some information is being carried forward from prior records for informational purposes only and is being cited so that efficiency, safety and quality of the patient's care is not compromised This note was prepared using voice recognition software and direct typing Please excuse inadvertent green house manager or typing errors, or uncorrected word substitutions Although every attempt has been made by the provider to proofread this document, occasional misspellings and typographical errors may still be present Due to the previous pandemic, and the use of personal protective equipment (PPE) This may decrease voice recognition accuracy Inadvertent green house manager errors may occur Plan Of Treatment Medication Medication Name Sig Start Date Stop Date Notes Zepbound 2.5 MG/0.5ML 2.5 mg weekly Subc utaneous Weekly; Duration: 30 days Pantoprazole Sodium 40 MG 1 tablet 1/2 t o 1 hour before morning meal Orally Once a day; Duration: 90 days Next Appt Details Provider Name:AMERICO MEDRAON, 09/18/2025 08:45:00 AM, [address] [facility], [facility] [address], [place], [address], Progress Notes * Romelia DARDENDOB:[birth year] (60 yo F)Acc No.[id number]:06/19/2025 Progress Notes Patient: Jim Romelia LLAMAS Provider: Anil MEDRANO NP :1965 A ge:60 Y S ex:Female Date:06/19/2025 Address:[address] [place], [place] [id number] Subjective: * Chief Complaints: * * HPI: C onstitutional: Patient is here today for a Chronic Disease Management Follow-up Visit Patient seen and examined. 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 She underwent upper EGD June 2024 Gladys TAYLOR Erythematous mucosa in the gastric body and antrum Normal duodenum and esophagus Should likely be on a PPI* Not taking Denies issues ambulating, recent falls, numbness/weakness. No previous imaging of spine. Urogynecology? Urinary stress incontinence, dribbling x 3-4 months, wearing pads, notes more when cough/laugh. D enies burning/frequency/hesitancy, fever and chills. Podiatry- Mae, achilles tendonitis in left foot and plantar fascitis and bone spurs bilaterally Non-smoker. ETOH use: socially patient has been having a hard time getting up in the morning because of stiffness. Patient has been Dx with arthritis in the knee. Patient scored 12 on PHQ- 9 and believes that most of the depression Wellbutrin? c omes lack of social circles and having her son living with her, and he is not progressing in life. Patient open to Being on medication, previously was on SSRIs many years ago 06/19/2025, Weight , BMI 05/22/2025, Weight 277lbs, BMI 44 10/18/2023, Weight 272 , BMI 44 Patient works as vocational counselor Highest weight: 272 current lbs Lowest weight: 150's lbs Goal weight:160-170 lbs JENNIFER screening/stop bang/epworth, * needs screening Comprehensive labs May 2025 Total cholesterol 162, triglycerides 175, HDL 51, LDL 76 Vitamin D 25 TSH 4.87 Renal function electrolytes and LFTs are stable Hemoglobin A1c of 5.7 UA unremarkable Health Maintenance- Colonoscopy: 2018, normal every 5 yrs : haven't scheduled one yet M ammography: June 2025, BI-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 * ROS: A ll Other Systems: Review of Systems (ROS) A ll others negative except those mentioned in HPI. * Medical History: * Medications: T aking Diclofenac , Notes to Pharmacist: 1% Gel OTC, Taking Albuterol Sulfate HFA 108 (90 Base) MCG/ACT Aerosol Solution 1 puff as needed Inhalation every 4 hrs , Taking Zepbound 2.5 MG/0.5ML Solution Auto-injector 2.5 mg weekly Subcutaneous Weekly , Taking Pantoprazole Sodium 40 MG Tablet Delayed Release 1 tablet 1/2 to 1 hour before morning meal Orally Once a day , Taking buPROPion HCl ER (XL) 150 MG Tablet Extended Release 24 Hour 1 tablet twice a day Orally twice a day , Taking Meclizine HCl 12.5 MG Tablet 1 tablet as needed Orally three times daily , Taking Azithromycin 250 MG Tablet as directed Orally daily Take 2 tablets on day 1, then take 1 tablet for 4 days, Taking Benzonatate 150 MG Capsule 1 capsule as needed for cough Orally Three times a day , Not-Taking Wegovy 1.7 MG/0.75ML Solution Auto-injector 1.7mg Subcutaneous weekly , Not-Taking Benadryl Allergy 25 MG Tablet 1 tablet at bedtime as needed Orally Once a day Objective: * Vitals: * Examination: G eneral Examination: GENERAL APPEARANCE: i n no acute distress, well developed, well nourished. H EAD: n ormocephalic, atraumatic. E YES: p upils equal, round, reactive to light and accommodation. E ARS: n ormal. O RAL CAVITY: m ucosa moist. T HROAT: c lear. N KIRK/THYROID: n kirk supple, full range of motion, no cervical lymphadenopathy. S KIN: n o suspicious lesions, warm and dry. H EART: n o murmurs, regular rate and rhythm, S1, S2 normal. L UNGS: c lear to auscultation bilaterally. A BDOMEN: n ormal, bowel sounds present, soft, nontender, nondistended. E XTREMITIES: n o clubbing, cyanosis, or edema. N EUROLOGIC: n onfocal, motor strength normal upper and lower extremities, sensory exam intact. Assessment: * Assessment: 1. H yperlipidemia, unspecified hyperlipidemia type - E78.5 2 . M orbid (severe) obesity due to excess calories - E66.01 3 . B marisa mass index [BMI] 40.0-44.9, adult - Z68.41 4 . I nterstitial lung disease - J84.9 5 . Benign paroxysmal positional vertigo, unspecified laterality - H81.10 6 . R heumatoid arthritis, involving unspecified site, unspecified whether rheumatoid factor present - M06.9 7 . P re-diabetes - R73.03 8 . G astroesophageal reflux disease with esophagitis without hemorrhage - K21.00 9 . E ncounter for examination of blood pressure without abnormal findings - Z01.30 1 0. U rinary incontinence with continuous leakage - N39.45 Acute Concerns/Problem List: 06/19/2025 Please contact to have updated colorectal screening _update comprehensive labs Start Wellbutrin Start pantoprazole Start Zepbound 2.5 mg Urogynecology referral Total time spent today was 30 minutes of which greater than 50% was spent on coordinating and counseling Patient has been found to be obese with a BMI of (30). Patient has class (1) obesity. We are a board certified obesity and weight management practice Of note, some information is being carried forward from prior records for informational purposes only and is being cited so that efficiency, safety and quality of the patient's care is not compromised This note was prepared using voice recognition software and direct typing Please excuse inadvertent green house manager or typing errors, or uncorrected word substitutions Although every attempt has been made by the provider to proofread this document, occasional misspellings and typographical errors may still be present Due to the previous pandemic, and the use of personal protective equipment (PPE) This may decrease voice recognition accuracy Inadvertent green house manager errors may occur Plan: * Treatment: 2. G astroesophageal reflux disease with esophagitis without hemorrhage Start Pantoprazole Sodium Tablet Delayed Release, 40 MG, 1 tablet 1/2 to 1 hour before morning meal, Orally, Once a day, 90 days, 90 Capsule, Refills 1. * Images: Billing Information: * Visit Code: * Procedure Codes: Care Plan Details* * Electronic signature of NILS MEDRANO on 08/15/2025 at 09:10 AM EDT Sign off status: Pending * Provider: Anil MEDRANO NP Date: 0 06/19/2025 Generated for Royer kruse/Demetrius/Akbar on: 09:10 AM EDT History and Physical Notes * HPI (History of Present Illness) Category Sub-Category Detail Notes Category Not es Constitutional Patient is here today for a Chronic Disease Management Follow-up Visit Patient seen and examined. 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 She underwent upper EGD June 2024 Gladys TAYLOR Erythematous mucosa in the gastric body and antrum Normal duodenum and esophagus Should likely be on a PPI* Not taking Denies issues ambulating, recent falls, numbness/weakness. No previous imaging of spine. Urogynecology? Urinary stress incontinence, dribbling x 3-4 months, wearing pads, notes more when cough/laugh. Denies burning/frequency/hesitancy, fever and chills. Podiatry- Mae, achilles tendonitis in left foot and plantar fascitis and bone spurs bilaterally Non-smoker. ETOH use: socially patient has been having a hard time getting up in the morning because of stiffness. Patient has been Dx with arthritis in the knee. Patient scored 12 on PHQ- 9 and believes that most of the depression Wellbutrin? comes lack of social circles and having her son living with her, and he is not progressing in life. Patient open to Being on medication, previously was on SSRIs many years ago 06/19/2025, Weight , BMI 05/22/2025, Weight 277lbs, BMI 44 10/18/2023, Weight 272 , BMI 44 Patient works as vocational counselor Highest weight: 272 current lbs Lowest weight: 150's lbs Goal weight:160-170 lbs JENNIFER screening/stop bang/epworth, * needs screening Comprehensive labs May 2025 Total cholesterol 162, triglycerides 175, HDL 51, LDL 76 Vitamin D 25 TSH 4.87 Renal function electrolytes and LFTs are stable Hemoglobin A1c of 5.7 UA unremarkable Health Maintenance- Colonoscopy: 2019, normal every 5 yrs : haven't scheduled one yet Mammography: June 2025, BI-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, will schedule for appt : haven't scheduled one yet COVID MRNA x 2 Vax Refuses flu vaccine Examination Category Sub-Category Detail Notes Category Not es General Examination GENERAL APPEARANCE: in no ac mei distress, well developed, well nourished HEAD: normocephalic, atrau matic EYES: pupils equal, round, reactive to light and accommodation EARS: normal THROAT: clear NECK/THYROID: neck supple, full ra nge of motion, no cervical lymphadenopathy HEART: no murmurs, regular rate and rhythm, S1, S2 normal LUNGS: clear to auscultatio n bilaterally ABDOMEN: normal, bowel sounds present, soft, nontender, nondistended NEUROLOGIC: nonfocal, motor stre ngth normal upper and lower extremities, sensory exam intact SKIN: no suspicious lesion s, warm and dry EXTREMITIES: no clubbing, cyanosi s, or edema ORAL CAVITY: mucosa moist
--- NOTE | 2025-08-15 08:43 | PFT_ITS ---
Flows: FEV1: 68 % of predicted at 1.92 L FVC: 70 % of predicted at 2.52 L FEV1/FVC: 76 % Bronchodilator response: Absent Volumes: Total lung capacity: 61 % of predicted at 3.45 L Residual volume: 56 % of predicted at 1.04 L Slow vital capacity: 63 % of predicted at 2.40 L Expiratory reserve volume: 53 % of predicted at 0.52 L Diffusion capacity: Mildly decreased, corrects to normal after adjustment for alveolar ventilation. Impression: Moderate restrictive ventilatory defect with no bronchodilator response. Decreased expiratory reserve volume suggests extrathoracic restriction likely secondary to abdominal obesity. Combination of restrictive ventilatory defect with decreased diffusion capacity suggests underlying pulmonary parenchymal disease. Clinical correlation is advised. MTDD
--- OUTSIDE RECORDS SUMMARY | 2025-08-15 09:09 | XMS_ITS | Clinical Summary ---
Author Organization [facility] Address [address] [place] [address] Phone Care Team Providers Care Sales Agent Business Services Name Role Phone Mar Allison NP Primary Care Provider [phone] Encounters Date Type Department Care Team Description 06/06/2025 9:42 AM EDT - 06/06/2025 11:59 PM EDT Hospital Encounter [facility] [address] [phone] Acute cough Discharge Disposition: Home or Self Care 06/06/2025 8:19 AM EDT - 06/06/2025 11:59 PM EDT Hospital [facility]counter [facility] [address] [phone] Encounter for screening mammogram for breast cancer Discharge Disposition: Home or Self Care from Last 3 Months Surgical History Surgery Date Site/Laterality Comments CHOLECYSTECTOMY PROCEDURE: LAPAROSCOPY, CHOLECYSTECTOMY OOPHORECTOMY PROCEDURE: HISTORICAL OOPHORECTOMY; COMMENT: bilateral secondary to cysts OTHER SURGICAL HISTORY PROCEDURE: CA HYSTEROSCOPY ENDOMETRIAL ABLATION Medical History Medical History Date Comments Rheumatoid arthritis (CMS/HCC V24, CMS/HCC V28) DX:Rheumatoid arthritis (HCC) Ovarian cyst DX:Ovarian cyst Family History Medical History Relation Name Comments Leukemia Aunt maternal aunt; Arthritis Brother 1 Other: skin cancer Brother 1 ? type; a live 2016 Other: HIV Brother 2 Other: HIV Brother [...] Information Value Date Recorded Sex Assigned at Female 08/14/2025 1:21 PM EDT Legal Sex Female 10:13 AM EST Gender [...] Health Maintenance Due Date Last Done Comments Colorectal Cancer Screening: Colonoscopy 1967 Hepatitis B Vaccines (1 of 3 - 19+ 3-dose series) 1986 Pneumococcal Vaccine: 50+ Years (1 of 1 - PCV) 2017 RSV Immunization Adult Patients (1 - Risk 50-74 years 1-dose series) 2017 Zoster Vaccines (1 of 2) 2017 HIV Screening 10/10/2022 Hepatitis C Screening 10/10/2022 Social Influencers of Health Screening 10/10/2022 DTaP,Tdap,and Td Vaccines (2 - Td or Tdap) 02/21/2023 02/21/2013 Cervical Cancer Screening: Pap Smear 03/18/2024 03/18/2021 Depression Screening 11/01/2024 COVID-19 Vaccine ( season) 2025 04/12/2021, 03/22/2021 Influenza Vaccine (#1) 2025 Breast Cancer Screening 06/06/2027 06/06/20, 04/14/2023, 02/06/2022, Additional history exists Cholesterol Screening (Lipid Panel) 05/23/2030 05/23/2025 HIB Vaccines Aged Out No longer eligi [...] Procedure Name Priority Date/Time Associated Diagnosis Comments XR CHEST 2 VIEWS Routine 06/06/2025 9:58 AM EDT Acute cough CBC WITH AUTO DIFFERENTIAL Routine 06/06/2025 9:31 AM EDT Acute cough CBC AND DIFFERENTIAL Routine 06/06/2025 9:31 AM EDT Acute cough MG MAMMO DIGITAL SCREENING W JACK BILAT Routine 06/06/2025 8:53 AM EDT Encounter for screening mammogram for breast cancer URINALYSIS WITH REFLEX MICROSCOPIC Routine 05/23/2025 8:09 AM EDT Routine general medical examination at a health care facility Screening for lipoid disorders Screening for diabetes mellitus Avitaminosis D Screening for thyroid disorder URINALYSIS WITH REFLEX MICROSCOPIC Routine 05/23/2025 8:09 AM EDT Routine general medical examination at a health care facility Screening for lipoid disorders Screening for diabetes mellitus Avitaminosis D Screening for thyroid disorder CBC WITH AUTO DIFFERENTIAL Routine 05/23/2025 8:01 AM EDT Routine general medical examination at a health care facility Screening for lipoid disorders Screening for diabetes mellitus Avitaminosis D Screening for thyroid disorder THYROID STIMULATING HORMONE Routine 05/23/2025 8:01 AM EDT Routine general medical examination at a health care facility Screening for lipoid disorders Screening for diabetes mellitus Avitaminosis D Screening for thyroid disorder VITAMIN D 25 HYDROXY Routine 05/23/2025 8:01 AM EDT Routine general medical examination at a [facility] care facility Screening for lipoid disorders Screening for diabetes mellitus Avitaminosis D Screening for thyroid disorder HEMOGLOBIN A1C Routine 05/23/2025 8:01 AM EDT Routine general medical examination at a health care facility Screening for lipoid disorders Screening for diabetes mellitus Avitaminosis D Screening for thyroid disorder LIPID PANEL WITH REFLEX TO DIRECT LDL Routine 05/23/2025 8:01 AM EDT Routine general medical examination at a health care facility Screening for lipoid disorders Screening for diabetes mellitus Avitaminosis D Screening for thyroid disorder COMPREHENSIVE METABOLIC PANEL Routine 05/23/2025 8:01 AM EDT Routine general medical examination at a health care facility Screening for lipoid disorders Screening for diabetes mellitus Avitaminosis D Screening for thyroid disorder CBC AND DIFFERENTIAL Routine 05/23/2025 8:01 AM EDT Routine general medical examination at a health care facility Screening for lipoid disorders Screening for diabetes mellitus Avitaminosis D Screening for thyroid disorder PAP SMEAR Routine 03/18/2021 from Last 3 Months or Most Recently Relevant to Health Maintenance Results * XR Chest 2 Views (06/06/2025 9:58 AM EDT) Anatomical Region Laterality Modality Body Radiographic Amrita ging 06/06/2025 10:0 7 AM EDT Impressions 06/06/2025 10:08 AM EDT No acute pulmonary disease. Resolved left base atelectasis and/or infiltrate since 09/29/2023. Code 79202 -------- FINAL REPORT -------- Dictated By: Gibran Huynh Dictated Date: 06/06/2025 10:07 ET Assigned Physician: Gibran Huynh Reviewed and Electronically Signed By: Gibran Huynh Signed Date: 06/06/2025 10:08 ET Workstation ID: [id number] Transcribed By: Self Edit Transcribed Date: 06/06/2025 10:07 ET Narrative 06/06/2025 10:08 AM EDT HISTORY: The patient is a 59-year-old female with cough. FINDINGS: PA and lateral radiographs of the chest demonstrate degenerative change of the thoracic spine as also seen on the prior examination performed 09/29/2023. The cardiac and mediastinal contours remain within normal limits. The lungs and costophrenic angles are clear. The small area of atelectasis and/or infiltrate at the left lung base seen on the prior examination has resolved. Procedure Note Gibran Huynh MD - 06/06/2025 HISTORY: The patient is a 59-year-old female with cough. FINDINGS: PA and lateral radiographs of the chest demonstrate degenerativechange of the thoracic spine as also seen on the prior examinationperformed 09/29/2023. The cardiac and mediastinal contours remain withinnormal limits. The lungs and costophrenic angles are clear. The small areaof atelectasis and/or infiltrate at the left lung base seen on the priorexamination has resolved. IMPRESSION: No acute pulmonary disease. Resolved left base atelectasis and/orinfiltrate since 09/29/2023. Code 23957 -------- FINAL REPORT -------- Dictated By: Gibran Huynh Dictated Date: 06/06/2025 10:07 ET Assigned Physician: Gibran Huynh Reviewed and Electronically Signed By: Gibran Huynh Signed Date: 06/06/2025 10:08 ET Workstation ID: [id number] Transcribed By: Self Edit Transcribed Date: 06/06/2025 10:07 ET Annalee ESPANA IMG XR PROCEDURES Final R esult * (ABNORMAL) CBC auto differential (06/06/2025 9:31 AM EDT) Only the most recent of2 resultswithin the time period is included. Pathologist [facility] WBC 7.7 4.8 - 10.8 K/mcL LAB HEMETOLOGY [facility] RBC 4.40 3.80 - 4.80 M/mcL LAB HEMETOLOGY METHOD 06/06/2025 10:56 AM [facility] Hemoglobin 12.2 11.5 - 16.0 g/dL LAB HEMETOLOGY METHOD 06/06/2025 10:56 AM [facility] Hematocrit 38.2 35.0 - 47.0 % LAB HEMETOLOGY METHOD 06/06/2025 10:56 AM [facility] MCV 86.8 79.0 - 98.0 FL LAB HEMETOLOGY METHOD 06/06/2025 10:56 AM [facility] MCH 27.7 27.0 - 32.0 pcg LAB HEMETOLOGY METHOD 06/06/2025 10:56 AM [facility] MCHC 31.9(L) 32.0 - 37.0 g/dL LAB HEMETOLOGY METHOD 06/06/2025 10:56 AM [facility] RDW 13.0 11.0 - 15.0 % LAB HEMETOLOGY METHOD 06/06/2025 10:56 AM [facility] Platelets 329 130 - 400 K/mcL LAB HEMETOLOGY METHOD 06/06/2025 10:56 AM [facility] MPV 10.2 7.0 - 11.0 FL LAB HEMETOLOGY METHOD 06/06/2025 10:56 AM [facility] NRBC 0.0 <1.0 % LAB HEMETOLOGY METHOD 06/06/2025 10:56 AM [facility] NRBC Absolute 0.00 <0.10 K/mcL LAB HEMETOLOGY METHOD 06/06/2025 10:56 AM [facility] Neutrophils Relative 56.1 % LAB HEMETOLOGY METHOD 06/06/2025 10:56 AM [facility] Lymphocytes Relative 33.4 % LAB HEMETOLOGY METHOD 06/06/2025 10:56 AM [facility] Monocytes Relative 5.7 % LAB HEMETOLOGY METHOD 06/06/2025 10:56 AM [facility] Eosinophils Relative 3.9 % LAB HEMETOLOGY METHOD 06/06/2025 10:56 AM [facility] Basophils Relative 0.5 % LAB HEMETOLOGY METHOD 06/06/2025 10:56 AM [facility] Immature Granulocytes Relative 0.4 % LAB HEMETOLOGY METHOD 06/06/2025 10:56 AM [facility] Neutrophils Absolute 4.29 1.50 - 7.00 K/mcL LAB HEMETOLOGY METHOD 06/06/2025 10:56 AM [facility] Lymphocytes Absolute 2.56 1.00 - 5.00 K/mcL LAB HEMETOLOGY METHOD 06/06/2025 10:56 AM [facility] Monocytes Absolute 0.44 0.20 - 1.00 K/mcL LAB HEMETOLOGY METHOD 06/06/2025 10:56 AM [facility] Eosinophils Absolute 0.30 0.00 - 0.50 K/mcL LAB HEMETOLOGY METHOD 06/06/2025 10:56 AM [facility] Basophils Absolute 0.04 0.00 - 0.20 /[facility] LAB HEMETOLOGY METHOD 06/06/2025 10:56 AM EDT [facility] Immature Granulocytes Absolute 0.03 0.00 - 0.03 [facility] LAB HEMETOLOGY METHOD 06/06/2025 10:56 AM EDT [facility] Blood Venous blood specimen / Unknown Venipuncture / Unknown 06/06/2025 9:31 AM EDT 06/06/2025 10:26 AM EDT us Annalee ESPANA LAB BLOOD ORDERABLES Cici al Result [facility] [address] [place] [id number], [place] [phone] * MG Mammo Digital Screening w Jack bilat (06/06/2025 8:53 AM EDT) Anatomical Region Laterality Modality Breast Bilateral Mammography 06/06/2025 9:03 AM EDT Impressions 06/06/2025 9:09 AM EDT No evidence of breast malignancy. BI-RADS CATEGORY: 1 - NEGATIVE RECOMMENDATION: Screening bilateral mammogram is recommended in 1 year. Mammo Location: [facility], [address] [place] [address], [id number], . -------- FINAL REPORT -------- Dictated By: Vaishali Morrow Dictated Date: 06/06/2025 09:03 ET Assigned Physician: Vaishali Morrow Reviewed and Electronically Signed By: Vaishali Morrow Signed Date: 06/06/2025 09:09 ET Workstation ID: [id number] Transcribed By: Self Edit Transcribed Date: 06/06/2025 09:03 ET Narrative 06/06/2025 9:09 AM EDT CLINICAL: 59 years old, Female, routine annual exam. COMPARISON: 04/14/2023, 02/06/2022, 09/05/2020 and 09/18/2019 TECHNIQUE: Bilateral MLO and CC views were obtained digitally with 3-D mammogram (digital breast tomosynthesis). Computer-aided detection was utilized in evaluation of this exam (CAD). FINDINGS: There is no evidence of suspicious mass or architectural distortion. No worrisome calcifications are evident. There has been no significant change from prior exam(s). BREAST DENSITY: A - The breasts are almost entirely fatty. Procedure Note Vaishali Morrow MD - 06/06/2025 CLINICAL: 59 years old, Female, routine annual exam. COMPARISON: 04/14/2023, 02/06/2022, 09/05/2020 and 09/18/2019 TECHNIQUE: Bilateral MLO and CC views were obtained digitally with 3-Dmammogram (digital breast tomosynthesis). Computer-aided detection wasutilized in evaluation of this exam (CAD). FINDINGS: There is no evidence of suspicious mass or architectural distortion. Noworrisome calcifications are evident. There has been no significantchange from prior exam(s). BREAST DENSITY: A - The breasts are almost entirely fatty. IMPRESSION: No evidence of breast malignancy. BI-RADS CATEGORY: 1 - NEGATIVE RECOMMENDATION: Screening bilateral mammogram is recommended in 1 year. Mammo Location: [facility], [address] [place] [address], [id number], . -------- FINAL REPORT -------- Dictated By: Vaishali Morrow Dictated Date: 06/06/2025 09:03 ET Assigned Physician: Vaishali Morrow Reviewed and Electronically Signed By: Vaishali Morrow Signed Date: 06/06/2025 09:09 ET Workstation ID: [id number] Transcribed By: Self Edit Transcribed Date: 06/06/2025 09:03 ET us Self Referral Sppl IMG BI PROCEDURES Final Resul t * (ABNORMAL) Urinalysis with reflex microscopic (05/23/2025 8:09 AM EDT) Specific Mobile Urine >=1.030 1.003 - 1.030 LAB URINALYSIS - AUTOMATED METHOD 05/23/2025 8:51 AM EDT [facility] pH, Urine 6.0 5.0 - 8.0 pH LAB URINALYSIS - AUTOMATED METHOD 05/23/2025 8:51 AM [facility] Leukocytes, Urine Small(A) Negative LAB URINALYSIS - AUTOMATED METHOD 05/23/2025 8:51 AM [facility] Nitrite, Urine Negative Negative LAB URINALYSIS - AUTOMATED METHOD 05/23/2025 8:51 AM [facility] Protein, Urine Negative <=Trace mg/dL LAB URINALYSIS - AUTOMATED METHOD 05/23/2025 8:51 AM [facility] Glucose, Urine Negative Negative mg/dL LAB URINALYSIS - AUTOMATED METHOD 05/23/2025 8:51 AM [facility] Ketones, Urine Negative Negative mg/dL LAB URINALYSIS - AUTOMATED METHOD 05/23/2025 8:51 AM [facility] Urobilinogen , Urine 0.2 0.2 - 1.0 mg/dL LAB URINALYSIS - AUTOMATED METHOD 05/23/2025 8:51 AM [facility] Bilirubin, Urine Negative Negative LAB URINALYSIS - AUTOMATED METHOD 05/23/2025 8:51 AM [facility] Blood, Urine Moderate(A) Negative LAB URINALYSIS - AUTOMATED METHOD 05/23/2025 8:51 AM [facility] RBC, Urine 2.0 0 - 4 /HPF 05/23/2025 8:51 AM [facility] WBC, Urine 3.0 0 - 4 /HPF 05/23/2025 8:51 AM [facility] Squamous Epithelial, Urine 50 0 - 60 /LPF 05/23/2025 8:51 AM [facility] Bacteria, Urine Few(A) Negative /HPF 05/23/2025 8:51 AM [facility] Hyaline Casts, Urine 2.0 0 - 3 /LPF 05/23/2025 8:51 AM EDT [facility] Urine Urine specimen obtained by clean catch procedure / Unknown Non-blood Collection / Unknown 05/23/2025 8:09 AM EDT 05/23/2025 8:34 AM EDT us Mar Allison TESTING TECH LAB URINE ORDERABLES Final Re sult [facility] [address] [place] [address], [place] [phone] * (ABNORMAL) Lipid panel with reflex to direct LDL (05/23/2025 8:01 AM EDT) Cholesterol 162 0 - 200 mg/dL LAB CHEMISTRY METHOD 05/23/2025 9:15 AM [facility] Triglycerides 175(H) 0 - 150 mg/dL LAB CHEMISTRY METHOD 05/23/2025 9:15 AM [facility] HDL 51 >=40 mg/dL LAB CHEMISTRY METHOD 05/23/2025 9:15 AM EDT [facility] LDL Calculated 76 0 - 100 mg/dL LAB CHEMISTRY METHOD 05/23/2025 9:15 AM [facility] VLDL Cholesterol Rikki 35 mg/dL LAB CHEMISTRY METHOD 05/23/2025 9:15 AM [facility] Non HDL Chol. (LDL+VLDL) 111 <145 mg/dL LAB CHEMISTRY METHOD 05/23/2025 9:15 AM EDT [facility] Chol/HDL Ratio 3.2 0.0 - 4.4 LAB CHEMISTRY METHOD 05/23/2025 9:15 AM [facility] Blood Venous blood specimen / Unknown Venipuncture / Unknown 05/23/2025 8:01 AM EDT 05/23/2025 8:33 AM EDT us Mar Allison TESTING TECH LAB BLOOD ORDERABLES Final Re sult Performing Organization Address City/[facility]/ZIP Co de Phone Number [facility] [address] [place] [address], * (ABNORMAL) Vitamin D 25 hydroxy (05/23/2025 8:01 AM EDT) Vit D, 25-Hydroxy 25.8(L) 30.0 - 80.0 ng/mL LAB CHEMISTRY METHOD 05/23/2025 10:23 AM EDT [facility] Blood Venous blood specimen / Unknown Venipuncture / Unknown 05/23/2025 8:01 AM EDT 05/23/2025 8:33 AM EDT Mar Allison NP LAB BLOOD ORDERABLES Final Re sult Performing Organization Address [facility] Co de Phone Number [facility] [address] [place] [address], * (ABNORMAL) Thyroid stimulating hormone (05/23/2025 8:01 AM EDT) TSH 4.87(H) 0.40 - 4.00 mcIU/mL LAB CHEMISTRY METHOD 05/23/2025 10:23 AM EDT [facility] Blood Venous blood specimen / Unknown Venipuncture / Unknown 05/23/2025 8:01 AM EDT 05/23/2025 8:33 AM EDT Mar Allison TESTING TECH LAB BLOOD ORDERABLES Final Re sult Performing Organization Address City/[facility]/ZIP Co de Phone Number [facility] [address] [place] [address], [place] [phone] * Hemoglobin A1c (05/23/2025 8:01 AM EDT) Hemoglobin A1C 5.7 <6.5 % LAB CHEMISTRY METHOD 05/23/2025 10:39 AM EDT [facility] Mean Bld Glu Estim. 117 mg/dL LAB CHEMISTRY METHOD 05/23/2025 10:39 AM [facility] Blood Venous blood specimen / Unknown Venipuncture / Unknown 05/23/2025 8:01 AM EDT 05/23/2025 8:33 AM EDT us Mar Allison TESTING TECH LAB BLOOD ORDERABLES Final Re sult [facility] [address] [place] [address], [place] [phone] * (ABNORMAL) Comprehensive metabolic panel (05/23/2025 8:01 AM EDT) Sodium 139 133 - 145 mmol/L LAB CHEMISTRY METHOD 05/23/2025 9:15 AM [facility] Potassium 4.3 3.5 - 5.5 mmol/L LAB CHEMISTRY METHOD 05/23/2025 9:15 AM [facility] Chloride 107 96 - 110 mmol/L LAB CHEMISTRY METHOD 05/23/2025 9:15 AM [facility] CO2 27 21 - 32 mmol/L LAB CHEMISTRY METHOD 05/23/2025 9:15 AM [facility] Anion Gap 5 3 - 11 LAB CHEMISTRY METHOD 05/23/2025 9:15 AM [facility] Glucose 103(H) 70 - 100 mg/dL LAB CHEMISTRY METHOD 05/23/2025 9:15 AM [facility] BUN 17 5 - 25 mg/dL LAB CHEMISTRY METHOD 05/23/2025 9:15 AM [facility] Creatinine 1.01 0.50 - 1.10 mg/dL LAB CHEMISTRY METHOD 05/23/2025 9:15 AM [facility] eGFR 65 >=60 mL/min/1. 73m2 LAB CHEMISTRY METHOD 05/23/2025 9:15 AM [facility] Comment:Calculation based on the Chronic Kidney Disease Epidemiology Collaboration (CKD-EPI) equation refit without adjustment for race. BUN/Creatinine Ratio 16.8 LAB CHEMISTRY METHOD 05/23/2025 9:15 AM [facility] Calcium 9.8 8.5 - 10.5 mg/dL LAB CHEMISTRY METHOD 05/23/2025 9:15 AM [facility] AST (SGOT) 18 10 - 42 unit/L LAB CHEMISTRY METHOD 05/23/2025 9:15 AM [facility] ALT (SGPT) 26 10 - 60 unit/L LAB CHEMISTRY METHOD 05/23/2025 9:15 AM [facility] Alkaline Phosphatase 51 42 - 121 unit/L LAB CHEMISTRY METHOD 05/23/2025 9:15 AM [facility] Total Protein 7.9 6.0 - 8.0 g/dL LAB CHEMISTRY METHOD 05/23/2025 9:15 AM [facility] Albumin 3.8 3.2 - 5.0 g/dL LAB CHEMISTRY METHOD 05/23/2025 9:15 AM [facility] Total Bilirubin 0.3 0.0 - 1.4 mg/dL LAB CHEMISTRY METHOD 05/23/2025 9:15 AM [facility] Blood Venous blood specimen / Unknown Venipuncture / Unknown 05/23/2025 8:01 AM EDT 05/23/2025 8:33 AM EDT us Mar Allison NP LAB BLOOD ORDERABLES Final Re sult [facility] [address] [place] [address], [place] [phone] * Pap smear (03/18/2021) 03/18/2021 Narrative HISTORICAL TESTING LAB RESULTING AGENCY - 03/20/2021 3:20 PM EDT [id number] THINPREP PAP, IMAGED: NEGATIVE FOR SQUAMOUS INTRAEPITHELIAL LESION AND MALIGNANCY . MIK BELLO(ASCP) (CASE ELECTRONICALLY SIGNED 03 20 2021) RESULT OF APTIMA HIGH RISK HPV ASSAY: HIGH RISK HPV: NEGATIVE (SEROTYPES 16,18,31,33,35,39,45,51,52,56,58,59,66,68) COMPLETED ON 2021-03-20 ADEQUACY: SATISFACTORY NONE SOURCE: THINPREP PAP HPV ANY DX: REFLEX 16 AND 18, CERVICAL, IMAGED CLINICAL INFORMATION: HPV ANY DIAGNOSIS. HORMONES, PAP HX NEG, Z12.4 Maisha Guzman DO LAB CYTOLOGY ORDERABLES Final Result HISTORICAL TESTING LAB RESULTING AGENCY from Last 3 Months or Most Recently Relevant to Health Maintenance Insurance [facility] [address] [place] [address] Care Teams Sales Agent Business Services Relationship Specialty Start Date End Date Mar Allison NP [address] [place] [id number] PCP - General Nurse Practitioner 05/23/25
--- OUTSIDE RECORDS SUMMARY | 2025-08-15 09:10 | XMS_ITS | Patient Health Record ---
Author Organization [facility] [address] Address [address] [place] [address] Care Team Providers Care Poultry Cleaner Name Role Phone SAJAN DAWSON Unavailable [phone] AMERICO MEDRANO Unavailable [phone] SAGRARIO BERMUDEZ Unavailable [phone] Allergies Allergen (clinical drug ingredient) Drug/Non Drug Allergy documented on EMR Reaction Allergy Type Onset Date Status clindamycin Clindamycin Unknown Drug Allergy Act eva Penicillin Unknown Drug Allergy Active Results Component Value Reference Range Notes XR CHEST 2 VIEWS Reviewed date:06/06/2025 11:18:45 AM Interpretation: Performing Lab: Notes/Report: Note See Note [facility], a member of [employer] Patient Name: OLGA DARDEN Date of : 1965 Reason for Exam: cough Exam Date: 06/06/2025 [id number] EST Report Status: Final Ordering Provider: SAGRARIO BERMUDEZ PCP: AMERICO MEDRANO HISTORY: The patient is a 59-year-old female [...] seen on the prior examination has resolved. IMPRESSION: No acute pulmonary disease. Resolved left base atelectasis and/or infiltrate since 09/29/2023. Code 79520 -------- FINAL REPOR T -------- Dictated By: Gibran Huynh Dictated Date: 06/06/2025 10:07 ET Assigned Physician: Gibran Huynh Reviewed and Electronically Signed By: Gibran Huynh Signed Date: 025 10:08 ET Workstation ID: [id number] Transcribed By: Self Edit Transcribed Date: 06/06/2025 10:07 ET URINALYSIS WITH REFLEX MICRO SCOPIC Reviewed date:05/23/2025 09:30:24 AM Interpretation: Performing Lab: Notes/Report: Specific [place] Urine >=1.030 1.003-1.030 pH, Urine 6.0 5.0-8.0 pH Leukocytes, Urine Small Negative Nitrite, Urine Negative Negative Protein, Urine Negative <=Trace mg/dL Glucose, Urine Negative Negative mg/dL Ketones, Urine Negative Negative mg/dL Urobilinogen, Urine 0.2 0.2-1.0 mg/dL Bilirubin, Urine Negative Negative Blood, Urine Moderate Negative RBC, Urine 2.0 0-4 /HPF WBC, Urine 3.0 0-4 /HPF Squamous Epithelial, Urine 50 0-60 /LPF Bacteria, Urine Few Negative /HPF Hyaline Casts, Urine 2.0 0-3 /LPF HEMOGLOBIN A1C Reviewed date:05/23/2025 11:01:32 AM Interpretation: Performing Lab: Notes/Report: Hemoglobin A1C 5.7 <6.5 % Mean Bld Glu Estim. 117 COMPREHENSIVE METABOLIC PANE L Reviewed date:05/23/2025 09:30:17 AM Interpretation: Performing Lab: Notes/Report: Sodium 139 133-145 mmol/L Potassium 4.3 3.5-5.5 mmol/L Chloride 107 96-110 mmol/L CO2 27 21-32 mmol/L Anion Gap 5 3-11 Glucose 103 70-100 mg/dL BUN 17 5-25 mg/dL Creatinine 1.01 0.50-1.10 mg/dL eGFR 65 >=60 mL/min/1.73m2 Calculati on based on the Chronic Kidney Disease Epidemiology Collaboration (CKD-EPI) equation refit without adjustment for race. BUN/Creatinine Ratio 16.8 Calcium 9.8 8.5-10.5 mg/dL AST (SGOT) 18 10-42 unit/L ALT (SGPT) 26 10-60 unit/L Alkaline Phosphatase 51 42-121 unit/L Total Protein 7.9 6.0-8.0 g/dL Albumin 3.8 3.2-5.0 g/dL Total Bilirubin 0.3 0.0-1.4 mg/dL THYROID STIMULATING HORMONE Reviewed date:05/23/2025 11:01:32 AM Interpretation: Performing Lab: Notes/Report: TSH 4.87 0.40-4.00 mcIU/mL VITAMIN D 25 HYDROXY Reviewed date:05/23/2025 11:01:32 AM Interpretation: Performing Lab: Notes/Report: Vit D, 25-Hydroxy 25.8 30.0-80.0 ng/mL LIPID PANEL WITH REFLEX TO D IRECT LDL Reviewed date:05/23/2025 09:30:08 AM Interpretation: Performing Lab: Notes/Report: Cholesterol 162 0-200 mg/dL Triglycerides 175 0-150 mg/dL HDL 51 >=40 mg/dL LDL Calculated 76 0-100 mg/dL VLDL Cholesterol Rikki 35 Non HDL Chol. (LDL+VLDL) 111 <145 mg/dL Chol/HDL Ratio 3.2 0.0-4.4 CBC WITH AUTO DIFFERENTIAL Reviewed date:05/23/2025 08:53:06 AM Interpretation: Performing Lab: Notes/Report: WBC 7.3 4.8-10.8 K/mcL RBC 4.50 3.80-4.80 M/mcL Hemoglobin 12.4 11.5-16.0 g/dL Hematocrit 39.1 35.0-47.0 % MCV 87.5 79.0-98.0 FL MCH 27.7 27.0-32.0 pcg MCHC 31.7 32.0-37.0 g/dL RDW 12.8 11.0-15.0 % Platelets 323 130-400 K/mcL MPV 10.2 7.0-11.0 FL NRBC 0.0 <1.0 % NRBC Absolute 0.00 <0.10 K/mcL Neutrophils Relative 47.5 Lymphocytes Relative 41.3 Monocytes Relative 7.2 Eosinophils Relative 3.2 Basophils Relative 0.7 Immature Granulocytes Relative 0.1 Neutrophils Absolute 3.46 1.50-7.00 K/mcL Lymphocytes Absolute 3.00 1.00-5.00 K/mcL Monocytes Absolute 0.52 0.20-1.00 K/mcL Eosinophils Absolute 0.23 0.00-0.50 K/mcL Basophils Absolute 0.05 0.00-0.20 K/mcL Immature Granulocytes Absolute 0.01 0.00-0.03 K/mcL CBC WITH AUTO DIFFERENTIAL Reviewed date:06/06/2025 11:14:24 AM Interpretation: Performing Lab: Notes/Report: WBC 7.7 4.8-10.8 K/mcL RBC 4.40 3.80-4.80 M/mcL Hemoglobin 12.2 11.5-16.0 g/dL Hematocrit 38.2 35.0-47.0 % MCV 86.8 79.0-98.0 FL MCH 27.7 27.0-32.0 pcg MCHC 31.9 32.0-37.0 g/dL RDW 13.0 11.0-15.0 % Platelets 329 130-400 K/mcL MPV 10.2 7.0-11.0 FL NRBC 0.0 <1.0 % NRBC Absolute 0.00 <0.10 K/mcL Neutrophils Relative 56.1 Lymphocytes Relative 33.4 Monocytes Relative 5.7 Eosinophils Relative 3.9 Basophils Relative 0.5 Immature Granulocytes Relative 0.4 Neutrophils Absolute 4.29 1.50-7.00 K/mcL Lymphocytes Absolute 2.56 1.00-5.00 K/mcL Monocytes Absolute 0.44 0.20-1.00 K/mcL Eosinophils Absolute 0.30 0.00-0.50 K/mcL Basophils Absolute 0.04 0.00-0.20 K/mcL Immature Granulocytes Absolute 0.03 0.00-0.03 K/mcL MG MAMMO DIGITAL SCREENING W SERGIO BILAT Reviewed date:06/06/2025 09:32:00 AM Interpretation: Performing Lab: Notes/Report: Note See Note [facility], a member of [employer] Patient Name: OLGA DARDEN Date of : 1965 Reason for Exam: Exam Date: 06/06/2025 [id number] EST Report Status: Final Ordering Provider: SELF REFERRAL SPPL PCP: AMERICO MEDRANO CLINICAL: 59 years o ld, Female, routine annual exam. COMPARISON: 04/14/20, 02/06/2022, 09/05/2020 and 09/18/2019 TECHNIQUE: Bilateral MLO [...] almost entirely fatty. IMPRESSION: No evidence of breas t malignancy. BI-RADS CATEGORY: 1 - NEGATIVE RECOMMENDATION: Screening bilateral mammogram is recommended in 1 year. Mammo Location: [facility], [address] [place] [address], [address], . -------- FINAL REPOR T -------- Dictated By: Vaishali Morrow Dictated Date: 06/06/2025 09:03 ET Assigned Physician: Vaishali Morrow Reviewed and Electronically Signed By: Vaishali Morrow Signed Date: 025 09:09 ET Workstation ID: [id number] Transcribed By: Self Edit Transcribed Date: 06/06/2025 09:03 ET Reason For Referral Reason [facility] urogynecolo gy Diagnosis 1 Urinary incontinence with continuous leakage (N39.45) Referral Organization [facility] [address] Referring Provider First Name SAJAN Referring Provider Last Name CHANDLER Referring Provider Speciality Internal M edicine Referred Provider Specialty Network Cable Installer General Notes Sejal Godoy 03:20:50 PM > Pt given referral faxed to Clinical Notes Christian Laughlin 01/2025 04:16:49 PM > refaxed to [phone] Referral Priority Routine Medications Medication SIG (Take, Route, Frequency, Duration) Notes Start Date End Date Status Benzonatate 150 MG 1 capsule as needed for cough Orally Three times a day; Duration: 7 days 06/06/2025 Active Meclizine HCl 12.5 MG 1 tablet as needed Orally three times daily; Duration: 30 days 02/25/2022 Active Azithromycin 250 MG as directed Orally daily; Duration: 5 days Take 2 tablets on day 1, then take 1 tablet for 4 days 06/06/2025 Active Benadryl Allergy 25 MG 1 tablet at bedti me as needed Orally Once a day Not-Taking Wegovy 1.7 MG/0.75ML 1.7mg Subcutaneous weekly; Duration: 30 days Not-Taking Pantoprazole Sodium 40 MG 1 tablet 1/2 to 1 hour before morning meal Orally Once a day; Duration: 90 days Active Diclofenac 1% Gel OTC Active Zepbound 2.5 MG/0.5ML 2.5 mg weekly Subcutaneous Weekly; Duration: 30 days Active Albuterol Sulfate HFA 108 (90 Base) MCG/ACT 1 puff as needed Inhalation every 4 hrs Active buPROPion HCl ER (XL) 150 MG 1 tablet twice a day Orally twice a day; Duration: 30 days 05/22/2025 Active Social History Tobacco Use: Social History Observation Description Date Details (start date - stop date) Never Smoker NA - NA Tobacco Use/Smoking Question Answer Notes Are you a nonsmoker Problems Problem Type SNOMED Code ICD Code Onset Dates Problem Status W/U Status Risk Notes Problem Morbid obesity (disorder) (133149991) Morbid (severe) obesity due to excess calories (E66.01) Active confirmed Problem Dysuria (08519021) Dysuria (R30.0) Active confi rmed Problem Adult health examination (230677705) Encounter for general adult medical examination without abnormal findings (Z00.00) Active confirmed Problem Backache (266380312) Back pain, unspecified back location, unspecified back pain laterality, unspecified chronicity (M54.9) Active confirmed Problem Hyperlipidaemia (92814381) Hyperlipidemia, unspecified hyperlipidemia type (E78.5) Active confirmed Problem Vitamin D deficiency (07520605) Vitamin D deficiency (E55.9) Active confirmed Problem Prediabetes (359056298) Pre-diabetes (R73.03) Active confirmed Problem Gastroesophageal reflux disease with esophagitis (disorder) (570089828) Gastroesophageal reflux disease with esophagitis without hemorrhage (K21.00) Active confirmed Problem Rheumatoid arthritis (96875835) Rheumatoid arthritis, involving unspecified site, unspecified whether rheumatoid factor present (M06.9) Active confirmed Problem Body mass index 40+ - severely obese (421092914) Body mass index [BMI] 40.0-44.9, adult (Z68.41) Active confirmed Problem Avitaminosis D (43901351) Avitaminosis D (E55.9) Active confirmed Problem Allergy, sequela (T78.40XS) Active confirmed Problem Interstitial lung disease (840638480) Interstitial lung disease (J84.9) Active confirmed Problem Right upper quadrant pain (441107245) RUQ abdominal pain (R10.11) Active confirmed Problem Urinary incontinence with continuous leakage (381994401) Urinary incontinence with continuous leakage (N39.45) Active confirmed Vital Signs Heart Rate 105 /min 07/25/2025 Oximetry 96 % 07/25/2025 Blood pressure diastolic 90 mm Hg 07/25/2025 Height 66 in 07/25/2025 Blood pressure systolic 142 mm Hg 07/25/2025 Weight 273 lbs 07/25/2025 BMI 44.06 kg/m2 07/25/2025 Encounters Encounter Location Date Provider Diagnosis [facility] [address] [address] 05/22/2025 AMERICO BORHOT Hyperlipidemia, unspecified hyperlipidemia type E78.5 ; Annual physical exam Z00.00 ; Morbid (severe) obesity due to excess [...] of blood pressure without abnormal findings Z01.30 ; Urinary incontinence with continuous leakage N39.45 and Breast cancer screening by mammogram Z12.31 [facility] [address] [address] 06/06/2025 SAGRARIO AIYANAWINSTON Acute cough R05.1 ; Interstitial lung disease J84.9 ; Gastroesophageal reflux disease with esophagitis without hemorrhage K21.00 ; Rheumatoid arthritis, involving unspecified site, unspecified whether rheumatoid factor present M06.9 ; Benign paroxysmal positional vertigo, bilateral H81.13 ; Depression F32.A and Encounter for examination of blood pressure without abnormal findings Z01.30 [facility] [address] [address] 07/25/2025 AMERICO BORHOT Hyperlipidemia, unspecified hyperlipidemia type E78.5 ; Morbid [...] of blood pressure without abnormal findings Z01.30 ; Urinary incontinence with continuous leakage N39.45 and RUQ abdominal pain R10.11 [facility] [address] [address] 05/22/2025 SAJAN DAWSON [facility] [address] [address] 06/04/2025 AMERICO MEDRANO Encounter for genera l adult medical examination without abnormal findings Z00.00 [facility] [address] [address] 06/05/2025 SAJAN DAWSON [facility] [address] [address] 06/18/2025 SAGRARIO LARA Acute cough R05.1 Assessments Encounter Date Diagnosis (ICD Code) Assessment Notes Treatment Notes Treatment Clinical Notes Section Notes 05/22/2025 Hyperlipidemia, unspecified hyperlipidemia type (ICD-10 - E78.5) Acute Concerns/Problem List: 05/22/2025 _update mammography please Please contact to have updated colorectal screening _update comprehensive labs Start Wellbutrin Start pantoprazole Start Zepbound 2.5 mg Urogynecology referral Will follow-up in 3 to 4 weeks Total time spent today was 30 minutes [...] software and direct typing Please excuse inadvertent neon technician or typing errors, or uncorrected word substitutions Although every attempt has been made by the provider to proofread this document, occasional misspellings and typographical errors may still be present Due to the previous pandemic, and the use of personal protective equipment (PPE) This may decrease voice recognition accuracy Inadvertent neon technician errors may occur 05/22/2025 Annual physical exam (ICD-10 - Z00.00) Acute Concerns/Problem List: 05/22/2025 _update mammography please Please contact to have updated colorectal screening _update comprehensive labs Start Wellbutrin Start pantoprazole Start Zepbound 2.5 mg Urogynecology referral Will follow-up in 3 to 4 weeks Total time spent today was 30 minutes [...] software and direct typing Please excuse inadvertent neon technician or typing errors, or uncorrected word substitutions Although every attempt has been made by the provider to proofread this document, occasional misspellings and typographical errors may still be present Due to the previous pandemic, and the use of personal protective equipment (PPE) This may decrease voice recognition accuracy Inadvertent neon technician errors may occur 06/04/2025 Encounter for general adult medical examination without abnormal findings (ICD-10 - Z00.00) 06/06/2025 Acute cough (ICD-10 - R05.1) Patient is a 59-year-old female with pertinent medical history of interstitial lung disease who presents today for urgent visit for 1 week of productive cough among other symptoms including 2 days of subjective fever, diarrhea, and continuing headache and shortness of breath with exertion. Fever present at the beginning of symptoms, now resolved. Reports no further gastrointestinal symptoms. Has been utilizing Tylenol as well as increased use of albuterol inhaler with relief of symptoms. On examination patient is well-appearing and in no acute distress. Vital signs are stable, temperature of 96.3 F. Cardiac exam unremarkable. Auscultation of the lungs reveals coarse breath sounds in the bilateral lower lung huerta, no evidence of wheezing or stridor. Equal chest rise and fall. No lymphadenopathy or lymphadenitis appreciated. Based on clinical history and examination as well as increased use of rescue inhaler, will obtain a chest x-ray to further workup orchitis versus asthma exacerbation versus pneumonia. Viral respiratory panel also obtained in office today, results pending. Will obtain a CBC to screen for infection. Discussed red flag signs that would require ED evaluation including intractable fever, chest pain, worsening shortness of breath, uncontrollable vomiting or diarrhea, weakness, or inability to tolerate oral intake. Patient understanding, all patient questions answered at this time. CBC reveals no evidence of leukocytosis or other gross abnormality. X-ray of the chest obtained which demonstrates no acute pulmonary disease. Resolved left base atelectasis and/or infiltrate since 09/29/2023. Plan at this time is to initiate treatment with Z-Willie 250 mg, patient will take 2 tablets on day 1, then 1 tablet for 4 days. Discussed proper use of medication and side effects. Will also prescribe Tessalon Perles to be used 3 times daily as needed for cough. # Interstitial lung disease: Continue albuterol sulfate 1 puff every 4 hours as needed for shortness of breath or wheezing. Follow-up with pulmonology, recent PFTs within normal limits. # GERD: Continue pantoprazole 40 mg once daily. # BPPV: Continues of meclizine 12.5 mg 1 tablet 3 times daily as needed. # Rheumatoid arthritis: Patient follows with rheumatology through [facility]. # Depression/anxiety: Continue bupropion 150 mg once daily. # Obesity: Continue Zepbound 2.5 mg weekly. All questions have been answered to patient's satisfaction. Patient verbalized understanding of diagnosis and treatments explained. Advised to call sooner prior to next visit it any questions/concerns arise. Case discussed with collaborating physician Rafael Dawson who reviewed the assessment and plan. Chart, medications, labs, vital signs reviewed. Dictation was accomplished with the use of [employer] voice recognition software, which is prone to medical misidentifications and grammatical errors. This are unintentional and the practitioner does try to identify and correct these, but some could still be present. Please do not hesitate to contact practitioner for clarification. 06/06/2025 Interstitial lung disease (ICD-10 - J84.9) Patient is a 59-year-old female with pertinent medical history of interstitial lung disease who presents today for urgent visit for 1 week of productive cough among other symptoms including 2 days of subjective fever, diarrhea, and continuing headache and shortness of breath with exertion. Fever present at the beginning of symptoms, now resolved. Reports no further gastrointestinal symptoms. Has been utilizing Tylenol as well as increased use of albuterol inhaler with relief of symptoms. On examination patient is well-appearing and in no acute distress. Vital signs are stable, temperature of 96.3 F. Cardiac exam unremarkable. Auscultation of the lungs reveals coarse breath sounds in the bilateral lower lung huerta, no evidence of wheezing or stridor. Equal chest rise and fall. No lymphadenopathy or lymphadenitis appreciated. Based on clinical history and examination as well as increased use of rescue inhaler, will obtain a chest x-ray to further workup orchitis versus asthma exacerbation versus pneumonia. Viral respiratory panel also obtained in office today, results pending. Will obtain a CBC to screen for infection. Discussed red flag signs that would require ED evaluation including intractable fever, chest pain, worsening shortness of breath, uncontrollable vomiting or diarrhea, weakness, or inability to tolerate oral intake. Patient understanding, all patient questions answered at this time. CBC reveals no evidence of leukocytosis or other gross abnormality. X-ray of the chest obtained which demonstrates no acute pulmonary disease. Resolved left base atelectasis and/or infiltrate since 09/29/2023. Plan at this time is to initiate treatment with Z-Willie 250 mg, patient will take 2 tablets on day 1, then 1 tablet for 4 days. Discussed proper use of medication and side effects. Will also prescribe Tessalon Perles to be used 3 times daily as needed for cough. # Interstitial lung disease: Continue albuterol sulfate 1 puff every 4 hours as needed for shortness of breath or wheezing. Follow-up with pulmonology, recent PFTs within normal limits. # GERD: Continue pantoprazole 40 mg once daily. # BPPV: Continues of meclizine 12.5 mg 1 tablet 3 times daily as needed. # Rheumatoid arthritis: Patient follows with rheumatology through [facility]. # Depression/anxiety: Continue bupropion 150 mg once daily. # Obesity: Continue Zepbound 2.5 mg weekly. All questions have been answered to patient's satisfaction. Patient verbalized understanding of diagnosis and treatments explained. Advised to call sooner prior to next visit it any questions/concerns arise. Case discussed with collaborating physician Rafael Dawson who reviewed the assessment and plan. Chart, medications, labs, vital signs reviewed. Dictation was accomplished with the use of [employer] voice recognition software, which is prone to medical misidentifications and grammatical errors. This are unintentional and the practitioner does try to identify and correct these, but some could still be present. Please do not hesitate to contact practitioner for clarification. 06/18/2025 Acute cough (ICD-10 - R05.1) 07/25/2025 Hyperlipidemia, unspecified hyperlipidemia type (ICD-10 - E78.5) Acute Concerns/Problem List: 07/25/2025 Will workup her right upper quadrant abdominal pain with an ultrasound and some labs She will follow-up regarding urogynecology referral I have asked her to record and log her blood pressure readings and we will follow-up with her in a month Total time spent today was 30 minutes [...] software and direct typing Please excuse inadvertent neon technician or typing errors, or uncorrected word substitutions Although every attempt has been made by the provider to proofread this document, occasional misspellings and typographical errors may still be present Due to the previous pandemic, and the use of personal protective equipment (PPE) This may decrease voice recognition accuracy Inadvertent neon technician errors may occur 07/25/2025 Morbid (severe) obesity due to excess calories (ICD-10 - E66.01) Acute Concerns/Problem List: 07/25/2025 Will workup her right upper quadrant abdominal pain with an ultrasound and some labs She will follow-up regarding urogynecology referral I have asked her to record and log her blood pressure readings and we will follow-up with her in a month Total time spent today was 30 minutes [...] software and direct typing Please excuse inadvertent neon technician or typing errors, or uncorrected word substitutions Although every attempt has been made by the provider to proofread this document, occasional misspellings and typographical errors may still be present Due to the previous pandemic, and the use of personal protective equipment (PPE) This may decrease voice recognition accuracy Inadvertent neon technician errors may occur 06/06/2025 Gastroesophageal reflux disease with esophagitis without hemorrhage (ICD-10 - K21.00) Patient is a 59-year-old female with pertinent medical history of interstitial lung disease who presents today for urgent visit for 1 week of productive cough among other symptoms including 2 days of subjective fever, diarrhea, and continuing headache and shortness of breath with exertion. Fever present at the beginning of symptoms, now resolved. Reports no further gastrointestinal symptoms. Has been utilizing Tylenol as well as increased use of albuterol inhaler with relief of symptoms. On examination patient is well-appearing and in no acute distress. Vital signs are stable, temperature of 96.3 F. Cardiac exam unremarkable. Auscultation of the lungs reveals coarse breath sounds in the bilateral lower lung huerta, no evidence of wheezing or stridor. Equal chest rise and fall. No lymphadenopathy or lymphadenitis appreciated. Based on clinical history and examination as well as increased use of rescue inhaler, will obtain a chest x-ray to further workup orchitis versus asthma exacerbation versus pneumonia. Viral respiratory panel also obtained in office today, results pending. Will obtain a CBC to screen for infection. Discussed red flag signs that would require ED evaluation including intractable fever, chest pain, worsening shortness of breath, uncontrollable vomiting or diarrhea, weakness, or inability to tolerate oral intake. Patient understanding, all patient questions answered at this time. CBC reveals no evidence of leukocytosis or other gross abnormality. X-ray of the chest obtained which demonstrates no acute pulmonary disease. Resolved left base atelectasis and/or infiltrate since 09/29/2023. Plan at this time is to initiate treatment with Z-Willie 250 mg, patient will take 2 tablets on day 1, then 1 tablet for 4 days. Discussed proper use of medication and side effects. Will also prescribe Tessalon Perles to be used 3 times daily as needed for cough. # Interstitial lung disease: Continue albuterol sulfate 1 puff every 4 hours as needed for shortness of breath or wheezing. Follow-up with pulmonology, recent PFTs within normal limits. # GERD: Continue pantoprazole 40 mg once daily. # BPPV: Continues of meclizine 12.5 mg 1 tablet 3 times daily as needed. # Rheumatoid arthritis: Patient follows with rheumatology through [facility]. # Depression/anxiety: Continue bupropion 150 mg once daily. # Obesity: Continue Zepbound 2.5 mg weekly. All questions have been answered to patient's satisfaction. Patient verbalized understanding of diagnosis and treatments explained. Advised to call sooner prior to next visit it any questions/concerns arise. Case discussed with collaborating physician Rafael Dawson who reviewed the assessment and plan. Chart, medications, labs, vital signs reviewed. Dictation was accomplished with the use of [employer] voice recognition software, which is prone to medical misidentifications and grammatical errors. This are unintentional and the practitioner does try to identify and correct these, but some could still be present. Please do not hesitate to contact practitioner for clarification. 05/22/2025 Morbid (severe) obesity due to excess calories (ICD-10 - E66.01) Acute Concerns/Problem List: 05/22/2025 _update mammography please Please contact to have updated colorectal screening _update comprehensive labs Start Wellbutrin Start pantoprazole Start Zepbound 2.5 mg Urogynecology referral Will follow-up in 3 to 4 weeks Total time spent today was 30 minutes [...] software and direct typing Please excuse inadvertent neon technician or typing errors, or uncorrected word substitutions Although every attempt has been made by the provider to proofread this document, occasional misspellings and typographical errors may still be present Due to the previous pandemic, and the use of personal protective equipment (PPE) This may decrease voice recognition accuracy Inadvertent neon technician errors may occur 05/22/2025 Body mass index [BMI] 40.0-44.9, adult (ICD-10 - Z68.41) Acute Concerns/Problem List: 05/22/2025 _update mammography please Please contact to have updated colorectal screening _update comprehensive labs Start Wellbutrin Start pantoprazole Start Zepbound 2.5 mg Urogynecology referral Will follow-up in 3 to 4 weeks Total time spent today was 30 minutes [...] software and direct typing Please excuse inadvertent neon technician or typing errors, or uncorrected word substitutions Although every attempt has been made by the provider to proofread this document, occasional misspellings and typographical errors may still be present Due to the previous pandemic, and the use of personal protective equipment (PPE) This may decrease voice recognition accuracy Inadvertent neon technician errors may occur 06/06/2025 Rheumatoid arthritis, involving unspecified site, unspecified whether rheumatoid factor present (ICD-10 - M06.9) Patient is a 59-year-old female with pertinent medical history of interstitial lung disease who presents today for urgent visit for 1 week of productive cough among other symptoms including 2 days of subjective fever, diarrhea, and continuing headache and shortness of breath with exertion. Fever present at the beginning of symptoms, now resolved. Reports no further gastrointestinal symptoms. Has been utilizing Tylenol as well as increased use of albuterol inhaler with relief of symptoms. On examination patient is well-appearing and in no acute distress. Vital signs are stable, temperature of 96.3 F. Cardiac exam unremarkable. Auscultation of the lungs reveals coarse breath sounds in the bilateral lower lung huerta, no evidence of wheezing or stridor. Equal chest rise and fall. No lymphadenopathy or lymphadenitis appreciated. Based on clinical history and examination as well as increased use of rescue inhaler, will obtain a chest x-ray to further workup orchitis versus asthma exacerbation versus pneumonia. Viral respiratory panel also obtained in office today, results pending. Will obtain a CBC to screen for infection. Discussed red flag signs that would require ED evaluation including intractable fever, chest pain, worsening shortness of breath, uncontrollable vomiting or diarrhea, weakness, or inability to tolerate oral intake. Patient understanding, all patient questions answered at this time. CBC reveals no evidence of leukocytosis or other gross abnormality. X-ray of the chest obtained which demonstrates no acute pulmonary disease. Resolved left base atelectasis and/or infiltrate since 09/29/2023. Plan at this time is to initiate treatment with Z-Willie 250 mg, patient will take 2 tablets on day 1, then 1 tablet for 4 days. Discussed proper use of medication and side effects. Will also prescribe Tessalon Perles to be used 3 times daily as needed for cough. # Interstitial lung disease: Continue albuterol sulfate 1 puff every 4 hours as needed for shortness of breath or wheezing. Follow-up with pulmonology, recent PFTs within normal limits. # GERD: Continue pantoprazole 40 mg once daily. # BPPV: Continues of meclizine 12.5 mg 1 tablet 3 times daily as needed. # Rheumatoid arthritis: Patient follows with rheumatology through [facility]. # Depression/anxiety: Continue bupropion 150 mg once daily. # Obesity: Continue Zepbound 2.5 mg weekly. All questions have been answered to patient's satisfaction. Patient verbalized understanding of diagnosis and treatments explained. Advised to call sooner prior to next visit it any questions/concerns arise. Case discussed with collaborating physician Rafael Dawson who reviewed the assessment and plan. Chart, medications, labs, vital signs reviewed. Dictation was accomplished with the use of [employer] voice recognition software, which is prone to medical misidentifications and grammatical errors. This are unintentional and the practitioner does try to identify and correct these, but some could still be present. Please do not hesitate to contact practitioner for clarification. 07/25/2025 Body mass index [BMI] 40.0-44.9, adult (ICD-10 - Z68.41) Acute Concerns/Problem List: 07/25/2025 Will workup her right upper quadrant abdominal pain with an ultrasound and some labs She will follow-up regarding urogynecology referral I have asked her to record and log her blood pressure readings and we will follow-up with her in a month Total time spent today was 30 minutes [...] software and direct typing Please excuse inadvertent neon technician or typing errors, or uncorrected word substitutions Although every attempt has been made by the provider to proofread this document, occasional misspellings and typographical errors may still be present Due to the previous pandemic, and the use of personal protective equipment (PPE) This may decrease voice recognition accuracy Inadvertent neon technician errors may occur 07/25/2025 Interstitial lung disease (ICD-10 - J84.9) Acute Concerns/Problem List: 07/25/2025 Will workup her right upper quadrant abdominal pain with an ultrasound and some labs She will follow-up regarding urogynecology referral I have asked her to record and log her blood pressure readings and we will follow-up with her in a month Total time spent today was 30 minutes [...] software and direct typing Please excuse inadvertent neon technician or typing errors, or uncorrected word substitutions Although every attempt has been made by the provider to proofread this document, occasional misspellings and typographical errors may still be present Due to the previous pandemic, and the use of personal protective equipment (PPE) This may decrease voice recognition accuracy Inadvertent neon technician errors may occur 06/06/2025 Benign paroxysmal positional vertigo, bilateral (ICD-10 - H81.13) Patient is a 59-year-old female with pertinent medical history of interstitial lung disease who presents today for urgent visit for 1 week of productive cough among other symptoms including 2 days of subjective fever, diarrhea, and continuing headache and shortness of breath with exertion. Fever present at the beginning of symptoms, now resolved. Reports no further gastrointestinal symptoms. Has been utilizing Tylenol as well as increased use of albuterol inhaler with relief of symptoms. On examination patient is well-appearing and in no acute distress. Vital signs are stable, temperature of 96.3 F. Cardiac exam unremarkable. Auscultation of the lungs reveals coarse breath sounds in the bilateral lower lung huerta, no evidence of wheezing or stridor. Equal chest rise and fall. No lymphadenopathy or lymphadenitis appreciated. Based on clinical history and examination as well as increased use of rescue inhaler, will obtain a chest x-ray to further workup orchitis versus asthma exacerbation versus pneumonia. Viral respiratory panel also obtained in office today, results pending. Will obtain a CBC to screen for infection. Discussed red flag signs that would require ED evaluation including intractable fever, chest pain, worsening shortness of breath, uncontrollable vomiting or diarrhea, weakness, or inability to tolerate oral intake. Patient understanding, all patient questions answered at this time. CBC reveals no evidence of leukocytosis or other gross abnormality. X-ray of the chest obtained which demonstrates no acute pulmonary disease. Resolved left base atelectasis and/or infiltrate since 09/29/2023. Plan at this time is to initiate treatment with Z-Willie 250 mg, patient will take 2 tablets on day 1, then 1 tablet for 4 days. Discussed proper use of medication and side effects. Will also prescribe Tessalon Perles to be used 3 times daily as needed for cough. # Interstitial lung disease: Continue albuterol sulfate 1 puff every 4 hours as needed for shortness of breath or wheezing. Follow-up with pulmonology, recent PFTs within normal limits. # GERD: Continue pantoprazole 40 mg once daily. # BPPV: Continues of meclizine 12.5 mg 1 tablet 3 times daily as needed. # Rheumatoid arthritis: Patient follows with rheumatology through [facility]. # Depression/anxiety: Continue bupropion 150 mg once daily. # Obesity: Continue Zepbound 2.5 mg weekly. All questions have been answered to patient's satisfaction. Patient verbalized understanding of diagnosis and treatments explained. Advised to call sooner prior to next visit it any questions/concerns arise. Case discussed with collaborating physician Rafael Dawson who reviewed the assessment and plan. Chart, medications, labs, vital signs reviewed. Dictation was accomplished with the use of [employer] voice recognition software, which is prone to medical misidentifications and grammatical errors. This are unintentional and the practitioner does try to identify and correct these, but some could still be present. Please do not hesitate to contact practitioner for clarification. 05/22/2025 Interstitial lung disease (ICD-10 - J84.9) Acute Concerns/Problem List: 05/22/2025 _update mammography please Please contact to have updated colorectal screening _update comprehensive labs Start Wellbutrin Start pantoprazole Start Zepbound 2.5 mg Urogynecology referral Will follow-up in 3 to 4 weeks Total time spent today was 30 minutes [...] software and direct typing Please excuse inadvertent neon technician or typing errors, or uncorrected word substitutions Although every attempt has been made by the provider to proofread this document, occasional misspellings and typographical errors may still be present Due to the previous pandemic, and the use of personal protective equipment (PPE) This may decrease voice recognition accuracy Inadvertent neon technician errors may occur 05/22/2025 Benign paroxysmal positional vertigo, unspecified laterality (ICD-10 - H81.10) Acute Concerns/Problem List: 05/22/2025 _update mammography please Please contact to have updated colorectal screening _update comprehensive labs Start Wellbutrin Start pantoprazole Start Zepbound 2.5 mg Urogynecology referral Will follow-up in 3 to 4 weeks Total time spent today was 30 minutes [...] software and direct typing Please excuse inadvertent neon technician or typing errors, or uncorrected word substitutions Although every attempt has been made by the provider to proofread this document, occasional misspellings and typographical errors may still be present Due to the previous pandemic, and the use of personal protective equipment (PPE) This may decrease voice recognition accuracy Inadvertent neon technician errors may occur 06/06/2025 Depression (ICD-10 - F32.A) Patient is a 59-year-old female with pertinent medical history of interstitial lung disease who presents today for urgent visit for 1 week of productive cough among other symptoms including 2 days of subjective fever, diarrhea, and continuing headache and shortness of breath with exertion. Fever present at the beginning of symptoms, now resolved. Reports no further gastrointestinal symptoms. Has been utilizing Tylenol as well as increased use of albuterol inhaler with relief of symptoms. On examination patient is well-appearing and in no acute distress. Vital signs are stable, temperature of 96.3 F. Cardiac exam unremarkable. Auscultation of the lungs reveals coarse breath sounds in the bilateral lower lung huerta, no evidence of wheezing or stridor. Equal chest rise and fall. No lymphadenopathy or lymphadenitis appreciated. Based on clinical history and examination as well as increased use of rescue inhaler, will obtain a chest x-ray to further workup orchitis versus asthma exacerbation versus pneumonia. Viral respiratory panel also obtained in office today, results pending. Will obtain a CBC to screen for infection. Discussed red flag signs that would require ED evaluation including intractable fever, chest pain, worsening shortness of breath, uncontrollable vomiting or diarrhea, weakness, or inability to tolerate oral intake. Patient understanding, all patient questions answered at this time. CBC reveals no evidence of leukocytosis or other gross abnormality. X-ray of the chest obtained which demonstrates no acute pulmonary disease. Resolved left base atelectasis and/or infiltrate since 09/29/2023. Plan at this time is to initiate treatment with Z-Willie 250 mg, patient will take 2 tablets on day 1, then 1 tablet for 4 days. Discussed proper use of medication and side effects. Will also prescribe Tessalon Perles to be used 3 times daily as needed for cough. # Interstitial lung disease: Continue albuterol sulfate 1 puff every 4 hours as needed for shortness of breath or wheezing. Follow-up with pulmonology, recent PFTs within normal limits. # GERD: Continue pantoprazole 40 mg once daily. # BPPV: Continues of meclizine 12.5 mg 1 tablet 3 times daily as needed. # Rheumatoid arthritis: Patient follows with rheumatology through [facility]. # Depression/anxiety: Continue bupropion 150 mg once daily. # Obesity: Continue Zepbound 2.5 mg weekly. All questions have been answered to patient's satisfaction. Patient verbalized understanding of diagnosis and treatments explained. Advised to call sooner prior to next visit it any questions/concerns arise. Case discussed with collaborating physician Rafael Dawson who reviewed the assessment and plan. Chart, medications, labs, vital signs reviewed. Dictation was accomplished with the use of [employer] voice recognition software, which is prone to medical misidentifications and grammatical errors. This are unintentional and the practitioner does try to identify and correct these, but some could still be present. Please do not hesitate to contact practitioner for clarification. 07/25/2025 Benign paroxysmal positional vertigo, unspecified laterality (ICD-10 - H81.10) Acute Concerns/Problem List: 07/25/2025 Will workup her right upper quadrant abdominal pain with an ultrasound and some labs She will follow-up regarding urogynecology referral I have asked her to record and log her blood pressure readings and we will follow-up with her in a month Total time spent today was 30 minutes [...] software and direct typing Please excuse inadvertent neon technician or typing errors, or uncorrected word substitutions Although every attempt has been made by the provider to proofread this document, occasional misspellings and typographical errors may still be present Due to the previous pandemic, and the use of personal protective equipment (PPE) This may decrease voice recognition accuracy Inadvertent neon technician errors may occur 07/25/2025 Rheumatoid arthritis, involving unspecified site, unspecified whether rheumatoid factor present (ICD-10 - M06.9) Acute Concerns/Problem List: 07/25/2025 Will workup her right upper quadrant abdominal pain with an ultrasound and some labs She will follow-up regarding urogynecology referral I have asked her to record and log her blood pressure readings and we will follow-up with her in a month Total time spent today was 30 minutes [...] software and direct typing Please excuse inadvertent neon technician or typing errors, or uncorrected word substitutions Although every attempt has been made by the provider to proofread this document, occasional misspellings and typographical errors may still be present Due to the previous pandemic, and the use of personal protective equipment (PPE) This may decrease voice recognition accuracy Inadvertent neon technician errors may occur 05/22/2025 Rheumatoid arthritis, involving unspecified site, unspecified whether rheumatoid factor present (ICD-10 - M06.9) Acute Concerns/Problem List: 05/22/2025 _update mammography please Please contact to have updated colorectal screening _update comprehensive labs Start Wellbutrin Start pantoprazole Start Zepbound 2.5 mg Urogynecology referral Will follow-up in 3 to 4 weeks Total time spent today was 30 minutes [...] software and direct typing Please excuse inadvertent neon technician or typing errors, or uncorrected word substitutions Although every attempt has been made by the provider to proofread this document, occasional misspellings and typographical errors may still be present Due to the previous pandemic, and the use of personal protective equipment (PPE) This may decrease voice recognition accuracy Inadvertent neon technician errors may occur 06/06/2025 Encounter for examination of blood pressure without abnormal findings (ICD-10 - Z01.30) Patient is a 59-year-old female with pertinent medical history of interstitial lung disease who presents today for urgent visit for 1 week of productive cough among other symptoms including 2 days of subjective fever, diarrhea, and continuing headache and shortness of breath with exertion. Fever present at the beginning of symptoms, now resolved. Reports no further gastrointestinal symptoms. Has been utilizing Tylenol as well as increased use of albuterol inhaler with relief of symptoms. On examination patient is well-appearing and in no acute distress. Vital signs are stable, temperature of 96.3 F. Cardiac exam unremarkable. Auscultation of the lungs reveals coarse breath sounds in the bilateral lower lung huerta, no evidence of wheezing or stridor. Equal chest rise and fall. No lymphadenopathy or lymphadenitis appreciated. Based on clinical history and examination as well as increased use of rescue inhaler, will obtain a chest x-ray to further workup orchitis versus asthma exacerbation versus pneumonia. Viral respiratory panel also obtained in office today, results pending. Will obtain a CBC to screen for infection. Discussed red flag signs that would require ED evaluation including intractable fever, chest pain, worsening shortness of breath, uncontrollable vomiting or diarrhea, weakness, or inability to tolerate oral intake. Patient understanding, all patient questions answered at this time. CBC reveals no evidence of leukocytosis or other gross abnormality. X-ray of the chest obtained which demonstrates no acute pulmonary disease. Resolved left base atelectasis and/or infiltrate since 09/29/2023. Plan at this time is to initiate treatment with Z-Willie 250 mg, patient will take 2 tablets on day 1, then 1 tablet for 4 days. Discussed proper use of medication and side effects. Will also prescribe Tessalon Perles to be used 3 times daily as needed for cough. # Interstitial lung disease: Continue albuterol sulfate 1 puff every 4 hours as needed for shortness of breath or wheezing. Follow-up with pulmonology, recent PFTs within normal limits. # GERD: Continue pantoprazole 40 mg once daily. # BPPV: Continues of meclizine 12.5 mg 1 tablet 3 times daily as needed. # Rheumatoid arthritis: Patient follows with rheumatology through [facility]. # Depression/anxiety: Continue bupropion 150 mg once daily. # Obesity: Continue Zepbound 2.5 mg weekly. All questions have been answered to patient's satisfaction. Patient verbalized understanding of diagnosis and treatments explained. Advised to call sooner prior to next visit it any questions/concerns arise. Case discussed with collaborating physician Rafael Dawson who reviewed the assessment and plan. Chart, medications, labs, vital signs reviewed. Dictation was accomplished with the use of [employer] voice recognition software, which is prone to medical misidentifications and grammatical errors. This are unintentional and the practitioner does try to identify and correct these, but some could still be present. Please do not hesitate to contact practitioner for clarification. 05/22/2025 Pre-diabetes (ICD-10 - R73.03) Acute Concerns/Problem List: 05/22/2025 _update mammography please Please contact to have updated colorectal screening _update comprehensive labs Start Wellbutrin Start pantoprazole Start Zepbound 2.5 mg Urogynecology referral Will follow-up in 3 to 4 weeks Total time spent today was 30 minutes [...] software and direct typing Please excuse inadvertent neon technician or typing errors, or uncorrected word substitutions Although every attempt has been made by the provider to proofread this document, occasional misspellings and typographical errors may still be present Due to the previous pandemic, and the use of personal protective equipment (PPE) This may decrease voice recognition accuracy Inadvertent neon technician errors may occur 07/25/2025 Pre-diabetes (ICD-10 - R73.03) Acute Concerns/Problem List: 07/25/2025 Will workup her right upper quadrant abdominal pain with an ultrasound and some labs She will follow-up regarding urogynecology referral I have asked her to record and log her blood pressure readings and we will follow-up with her in a month Total time spent today was 30 minutes [...] software and direct typing Please excuse inadvertent neon technician or typing errors, or uncorrected word substitutions Although every attempt has been made by the provider to proofread this document, occasional misspellings and typographical errors may still be present Due to the previous pandemic, and the use of personal protective equipment (PPE) This may decrease voice recognition accuracy Inadvertent neon technician errors may occur 07/25/2025 Gastroesophageal reflux disease with esophagitis without hemorrhage (ICD-10 - K21.00) Acute Concerns/Problem List: 07/25/2025 Will workup her right upper quadrant abdominal pain with an ultrasound and some labs She will follow-up regarding urogynecology referral I have asked her to record and log her blood pressure readings and we will follow-up with her in a month Total time spent today was 30 minutes [...] software and direct typing Please excuse inadvertent neon technician or typing errors, or uncorrected word substitutions Although every attempt has been made by the provider to proofread this document, occasional misspellings and typographical errors may still be present Due to the previous pandemic, and the use of personal protective equipment (PPE) This may decrease voice recognition accuracy Inadvertent neon technician errors may occur 05/22/2025 Gastroesophageal reflux disease with esophagitis without hemorrhage (ICD-10 - K21.00) Acute Concerns/Problem List: 05/22/2025 _update mammography please Please contact to have updated colorectal screening _update comprehensive labs Start Wellbutrin Start pantoprazole Start Zepbound 2.5 mg Urogynecology referral Will follow-up in 3 to 4 weeks Total time spent today was 30 minutes [...] software and direct typing Please excuse inadvertent neon technician or typing errors, or uncorrected word substitutions Although every attempt has been made by the provider to proofread this document, occasional misspellings and typographical errors may still be present Due to the previous pandemic, and the use of personal protective equipment (PPE) This may decrease voice recognition accuracy Inadvertent neon technician errors may occur 05/22/2025 Encounter for examination of blood pressure without abnormal findings (ICD-10 - Z01.30) Acute Concerns/Problem List: 05/22/2025 _update mammography please Please contact to have updated colorectal screening _update comprehensive labs Start Wellbutrin Start pantoprazole Start Zepbound 2.5 mg Urogynecology referral Will follow-up in 3 to 4 weeks Total time spent today was 30 minutes [...] software and direct typing Please excuse inadvertent neon technician or typing errors, or uncorrected word substitutions Although every attempt has been made by the provider to proofread this document, occasional misspellings and typographical errors may still be present Due to the previous pandemic, and the use of personal protective equipment (PPE) This may decrease voice recognition accuracy Inadvertent neon technician errors may occur 07/25/2025 Encounter for examination of blood pressure without abnormal findings (ICD-10 - Z01.30) Acute Concerns/Problem List: 07/25/2025 Will workup her right upper quadrant abdominal pain with an ultrasound and some labs She will follow-up regarding urogynecology referral I have asked her to record and log her blood pressure readings and we will follow-up with her in a month Total time spent today was 30 minutes [...] software and direct typing Please excuse inadvertent neon technician or typing errors, or uncorrected word substitutions Although every attempt has been made by the provider to proofread this document, occasional misspellings and typographical errors may still be present Due to the previous pandemic, and the use of personal protective equipment (PPE) This may decrease voice recognition accuracy Inadvertent neon technician errors may occur 05/22/2025 Urinary incontinence with continuous leakage (ICD-10 - N39.45) Acute Concerns/Problem List: 05/22/2025 _update mammography please Please contact to have updated colorectal screening _update comprehensive labs Start Wellbutrin Start pantoprazole Start Zepbound 2.5 mg Urogynecology referral Will follow-up in 3 to 4 weeks Total time spent today was 30 minutes [...] software and direct typing Please excuse inadvertent neon technician or typing errors, or uncorrected word substitutions Although every attempt has been made by the provider to proofread this document, occasional misspellings and typographical errors may still be present Due to the previous pandemic, and the use of personal protective equipment (PPE) This may decrease voice recognition accuracy Inadvertent neon technician errors may occur 07/25/2025 Urinary incontinence with continuous leakage (ICD-10 - N39.45) Acute Concerns/Problem List: 07/25/2025 Will workup her right upper quadrant abdominal pain with an ultrasound and some labs She will follow-up regarding urogynecology referral I have asked her to record and log her blood pressure readings and we will follow-up with her in a month Total time spent today was 30 minutes [...] software and direct typing Please excuse inadvertent neon technician or typing errors, or uncorrected word substitutions Although every attempt has been made by the provider to proofread this document, occasional misspellings and typographical errors may still be present Due to the previous pandemic, and the use of personal protective equipment (PPE) This may decrease voice recognition accuracy Inadvertent neon technician errors may occur 07/25/2025 RUQ abdominal pain (ICD-10 - R10.11) Acute Concerns/Problem List: 07/25/2025 Will workup her right upper quadrant abdominal pain with an ultrasound and some labs She will follow-up regarding urogynecology referral I have asked her to record and log her blood pressure readings and we will follow-up with her in a month Total time spent today was 30 minutes [...] software and direct typing Please excuse inadvertent neon technician or typing errors, or uncorrected word substitutions Although every attempt has been made by the provider to proofread this document, occasional misspellings and typographical errors may still be present Due to the previous pandemic, and the use of personal protective equipment (PPE) This may decrease voice recognition accuracy Inadvertent neon technician errors may occur 05/22/2025 Breast cancer screening by mammogram (ICD-10 - Z12.31) Acute Concerns/Problem List: 05/22/2025 _update mammography please Please contact to have updated colorectal screening _update comprehensive labs Start Wellbutrin Start pantoprazole Start Zepbound 2.5 mg Urogynecology referral Will follow-up in 3 to 4 weeks Total time spent today was 30 minutes [...] software and direct typing Please excuse inadvertent neon technician or typing errors, or uncorrected word substitutions Although every attempt has been made by the provider to proofread this document, occasional misspellings and typographical errors may still be present Due to the previous pandemic, and the use of personal protective equipment (PPE) This may decrease voice recognition accuracy Inadvertent neon technician errors may occur 06/19/2025 Acute Concerns/Problem List: 06/19/2025 Please contact to [...] software and direct typing Please excuse inadvertent neon technician or typing errors, or uncorrected word substitutions Although every attempt has been made by the provider to proofread this document, occasional misspellings and typographical errors may still be present Due to the previous pandemic, and the use of personal protective equipment (PPE) This may decrease voice recognition accuracy Inadvertent neon technician errors may occur Plan Of Treatment Pending Test Test Name Order Date Mammogram 05/22/2025 X ray : Chest with 2 views 06/06/2025 AMYLASE 12/01/2023 CBC (COMPLETE BLOOD COUNT) WITH DIFF COMPREHENSIVE METABOLIC PANEL 12/01/2023 LIPASE 12/01/2023 URINALYSIS W/REFLEX CULTURE 12/01/2023 URINALYSIS W/REFLEX CULTURE 04/06/2023 Chest 2 Views Frontal and Lat 09/29/2023 CT Abd and Pelvis w Contrast 12/01/2023 US Abdomen Complete 07/25/2025 XR T-Spine 3 Views 04/06/2023 LIPID PANEL, STANDARD 05/22/2025 COMPREHENSIVE METABOLIC PANEL 05/22/2025 CBC (INCLUDES DIFF/PLT) 05/22/2025 CBC (INCLUDES DIFF/PLT) 06/06/2025 URINALYSIS, COMPLETE 05/22/2025 HEMOGLOBIN A1c 05/22/2025 TSH 05/22/2025 VITAMIN D,25-OH,TOTAL,IA 05/22/2025 PPC Rapid Covid/Strep/Flu/RSV 06/06/2025 Future Test Test Name Order Date HEMOGLOBIN A1C 08/27/2022 LIPID PANEL 08/27/2022 25OH VITAMIN D 02/24/2023 CBC (COMPLETE BLOOD COUNT) WITH DIFF COMPREHENSIVE METABOLIC PANEL 02/24/2023 HEMOGLOBIN A1C 02/24/2023 LIPID PANEL 02/24/2023 TSH WITH REFLEX TO FT4 02/24/2023 URINALYSIS W/REFLEX CULTURE 02/24/2023 Next Appt Details Provider Name:AMERICO MEDRAON, 09/18/2025 08:45:00 AM, [address] [facility], [facility] [address], [place], [address], Insurance Providers Payer Name Payer Address Payer Phone Subscriber Number Group Number Insured Name Patient Relationship to Insured Coverage Start Date Coverage End Date [facility] [address] [place] [address] [phone] [id number] Olga Darden Self - patient is the insured Medications Administered Medication Instructions Date of Administration Dosage Notes Semaglutide 10/18/2023 0.25 mL Medical (General) History Surgical History Surgery Date(Month/Year) endometrial ablation cholecystectomy
--- OUTSIDE RECORDS SUMMARY | 2025-08-15 09:10 | XMS_ITS | Patient Health Record ---
Author Organization [facility] Address [address] [place] [address] Care Team Providers Care Set Key Driver Name Role Phone Tawnya Dawson Primary Care Provider Gopal Singh Unavailable [phone] Allergies Allergen (clinical drug ingredient) Drug/Non Drug Allergy documented on EMR Reaction Allergy Type Onset Date Status contrast dye (uncoded) Hives, vomiting Allergy Active clindamycin Clindamycin Hives Drug Allergy Act eva Penicillin Hives, diarrhea Drug Allergy Active Reason For Referral No Information Medications Medication SIG (Take, Route, Frequency, Duration) Notes Start Date End Date Status ASO Ankle/Foot Stablizing AFO As directed Wear Daily; Duration: as needed 03/17/2023 Active Physical Therapy . . . 2-3x/week; Durat ion: 3-4 weeks Active Benadryl Active Albuterol Active Plaquenil Active Walking Boot/Pneumatic As directed Wear Daily; Duration: Until further notice 01/27/2023 Active Meclizine HCl 12.5 MG 1 tablet as needed Orally every 12 hrs Active Compression Stockings 20-30mm Hg 1 pair wear daily; Duration: 30 days Active Vitamin C Active Excedrin [...] W/U Status Risk Notes Problem Achilles bursitis ([id number]) Achilles tendinitis, left leg (M76.62) Active confirmed Unresolved Problem Peroneal tendinitis (45382344) Peroneal tendinitis, left leg (M76.72) Active confirmed Unresolved Plan Of Treatment Pending Test Test Name Order Date X ray : Ankle, left 3V 10/19/2022 X ray : Ankle, right 3V 10/19/2022 Insurance Providers Payer Name Payer Address Payer Phone Subscriber Number Group Number Insured Name Patient Relationship to Insured Coverage Start Date Coverage End Date [facility] [address] [facility] [id number] [phone] [id number] Romelia Rincon Self - patient is the insured Medical (General) History Medical History History ICD Code Arthritis - Rheumatoid Back,Hip,and Knee pain Cataracts Chicken pox covid-19 Depression Gall bladder problems Headaches/Migraines Hearing loss Lung disease Psoriasis/eczema Surgical History Surgery Date(Month/Year) Laparoscopy 1991 cholecystectomy 1991 endometrial ablation oopherectomy 2011
[2025-08-15 09:25] VITALS: PULSE 90; O2SAT 97
== END 2025-08-15 08:41 | disposition home or self-care (01) ==
LOC: HO.RESP 08:40
PROVIDERS: PCP Internal Medicine; Visit Provider Hospitalist
DX: J84.9 Interstitial pulmonary disease, unspecified (principal)
CPT/HCPCS: 94060; 94640; 94727; 94729

== ENCOUNTER → 2025-08-15 08:43 | Outpatient (BNV) | payer OTHER, SELFPAY | PROVIDERS: PCP Internal Medicine; Visit Provider Internal Medicine Pulmonary Disease | DX: J98.4 Other disorders of lung (principal) | CPT/HCPCS: 94060; 94727; 94729 ==